=== PATIENT | male | born 1945 | race Hispanic/Latino ===

== ENCOUNTER 2017-12-04 10:42 | Inpatient (IN) | payer MEDICARE ==
[2017-12-04] MEDS ORDERED: NACL 0.9% 500 ML 500 ML IV ONE (11:15)
--- NOTE | 2017-12-04 11:39 | Emergency Department Report ---
- General Chief complaint: Weakness Stated complaint: CT Time Seen by Provider: 12/04/17 11:21 Source: patient, family Mode of arrival: Wheelchair Limitations: No Limitations - History of Present Illness Initial comments: 72-year-old male with a past medical history of atrial fibrillation on Eliquis, kidney stones, sleep apnea, morbid obesity, diabetes, and hypertension presents to the hospital with complaint of generalized weakness, fatigue, shortness of breath, and low blood pressure. Patient has been on Eliquis for the past 3-4 months for atrial fibrillation and has been experiencing hematuria. Hematuria worsened and therefore he saw Dr. Rodriguez on the . Patient was diagnosed with UTI and had a CT that showed air around the kidneys and was placed on Levaquin. By the evening patient began to have aching moderate right lower and right mid abdominal pain. Positive nausea with eating without vomiting reported. Positive chills. Patient denies dysuria and states that hematuria has greatly improved. Patient went to his urologist office today sent to the ER for evaluation. Patient hypotensive and tachycardic on arrival. - Related Data Home Medications Medication Instructions Recorded Confirmed Last Taken ALBUTEROL Inhaler [Proair] 2 puff IH QID PRN 12/04/17 12/04/17 Unknown Allopurinol [Zyloprim] 300 mg PO QDAY 12/04/17 12/04/17 12/03/17 Apixaban [Eliquis] 5 mg PO BID 12/04/17 12/04/17 12/03/17 Ascorbic Acid [Vitamin C] 500 mg PO BID 12/04/17 12/04/17 12/03/17 Aspirin [Lo-Dose Aspirin EC] 81 mg PO DAILY 12/04/17 12/04/17 12/03/17 Calcium Carbonate/Vitamin D3 2 each PO DAILY 12/04/17 12/04/17 12/03/17 [Calcium 600-Vit D3 500 Softgel] Cyanocobalamin [Vitamin B-12] 1,000 mcg PO DAILY 12/04/17 12/04/17 12/03/17 Dulaglutide [Trulicity] 1.5 mg SQ QWEEK 12/04/17 12/04/17 12/03/17 Ergocalciferol (Vitamin D2) 2,000 unit PO BID 12/04/17 12/04/17 Unknown [Vitamin D2] Ezetimibe/Simvastatin (Nf) 1 tab PO QHS 12/04/17 12/04/17 12/03/17 [Vytorin 10-40 mg (Nf)] Furosemide [Lasix TAB] 40 mg PO BID 12/04/17 12/04/17 12/03/17 Glimepiride [Amaryl] 4 mg PO QAM 12/04/17 12/04/17 12/03/17 Glucosamine/D3/Boswellia Shari 1 each PO DAILY 12/04/17 12/04/17 12/03/17 [Osteo Bi-Flex Tablet] Insulin Regular, Human [HumuLIN R] 0 unit SQ ACHS 12/04/17 12/04/17 12/03/17 Linaclotide [Linzess] 145 mcg PO QDAY 12/04/17 12/04/17 12/03/17 Lisinopril [Zestril TAB] 40 mg PO QDAY 12/04/17 12/04/17 12/03/17 Multivit-Min/FA/Lycopen/Lutein 1 each PO DAILY 12/04/17 12/04/17 12/03/17 [Adults 50+ Multivitamin Tablet] Naproxen Sodium [Aleve] 220 mg PO BID 12/04/17 12/04/17 12/03/17 [place]-3/Dha/Epa/Fish Oil [Fish Oil 1 each PO DAILY 12/04/17 12/04/17 12/03/17 1,200 mg Softgel] Potassium Chloride [Klor-Con M20] 20 meq PO DAILY 12/04/17 12/04/17 12/03/17 Zinc Acetate [Galzin] 50 mg PO 4XW 12/04/17 12/04/17 12/03/17 Allergies Allergy/AdvReac Type Severity Reaction Status Date / Time No Known Allergies Allergy Verified 12/04/17 11:29 ED Review of Systems ROS: Stated complaint: CT Other details as noted in HPI Comment: All other systems reviewed and negative Other: Constitutional: + chills Eyes: No eye pain visual changes or discharge ENT: No ear pain or throat pain Neck: Denies pain Respiratory: Denies cough Cardiovascular: Denies chest pain, palpitation. + lightheaded GI: Denies abdominal pain, nausea, vomiting, diarrhea, constipation, melena hematochezia : As per HPI Musculoskeletal: Denies back pain, chronic leg edema Skin: Denies rash, lesions, erythema Neurologic: Denies headache, numbness. Generalized weakness Psychiatric: Denies suicidal ideation, hallucinations Hematological/lymphatic: Denies easy bruising, lymphadenopathy ED Past Medical Hx - Past Medical History Hx Hypertension: Yes Hx Diabetes: Yes Additional medical history: A fib on Eliquis. Reports negative cardiac cath about 2015 - Surgical History Past Surgical History?: Yes Additional Surgical History: Tonsillectomy - Social History Smoking Status: Former Smoker - Medications Home Medications: Home Medications Medication Instructions Recorded Confirmed Last Taken Type ALBUTEROL Inhaler [Proair] 2 puff IH QID PRN 12/04/17 12/04/17 Unknown History Allopurinol [Zyloprim] 300 mg PO QDAY 12/04/17 12/04/17 12/03/17 History Apixaban [Eliquis] 5 mg PO BID 12/04/17 12/04/17 12/03/17 History Ascorbic Acid [Vitamin C] 500 mg PO BID 12/04/17 12/04/17 12/03/17 History Aspirin [Lo-Dose Aspirin EC] 81 mg PO DAILY 12/04/17 12/04/17 12/03/17 History Calcium Carbonate/Vitamin D3 2 each PO DAILY 12/04/17 12/04/17 12/03/17 History [Calcium 600-Vit D3 500 Softgel] Cyanocobalamin [Vitamin B-12] 1,000 mcg PO DAILY 12/04/17 12/04/17 12/03/17 History Dulaglutide [Trulicity] 1.5 mg SQ QWEEK 12/04/17 12/04/17 12/03/17 History Ergocalciferol (Vitamin D2) 2,000 unit PO BID 12/04/17 12/04/17 Unknown History [Vitamin D2] Ezetimibe/Simvastatin (Nf) 1 tab PO QHS 12/04/17 12/04/17 12/03/17 History [Vytorin 10-40 mg (Nf)] Furosemide [Lasix TAB] 40 mg PO BID 12/04/17 12/04/17 12/03/17 History Glimepiride [Amaryl] 4 mg PO QAM 12/04/17 12/04/17 12/03/17 History Glucosamine/D3/Boswellia Shari 1 each PO DAILY 12/04/17 12/04/17 12/03/17 History [Osteo Bi-Flex Tablet] Insulin Regular, Human [HumuLIN R] 0 unit SQ ACHS 12/04/17 12/04/17 12/03/17 History Linaclotide [Linzess] 145 mcg PO QDAY 12/04/17 12/04/17 12/03/17 History Lisinopril [Zestril TAB] 40 mg PO QDAY 12/04/17 12/04/17 12/03/17 History Multivit-Min/FA/Lycopen/Lutein 1 each PO DAILY 12/04/17 12/04/17 12/03/17 History [Adults 50+ Multivitamin Tablet] Naproxen Sodium [Aleve] 220 mg PO BID 12/04/17 12/04/17 12/03/17 History [place]-3/Dha/Epa/Fish Oil [Fish Oil 1 each PO DAILY 12/04/17 12/04/17 12/03/17 History 1,200 mg Softgel] Potassium Chloride [Klor-Con M20] 20 meq PO DAILY 12/04/17 12/04/17 12/03/17 History Zinc Acetate [Galzin] 50 mg PO 4XW 12/04/17 12/04/17 12/03/17 History ED Physical Exam - General Limitations: No Limitations - Other Other exam information: General: No limitations, patient is alert in no acute distress Head exam: Atraumatic, normocephalic Eyes exam: Normal appearance ENT: Moist mucous membrane, normal oropharynx Neck exam: Normal inspection, full range of motion, no meningismus nontender Respiratory exam: Clear to auscultation Cardiovascular: Tachycardic irregular rhythm Abdomen: Soft, nondistended, and nontender, with normal bowel sounds, no rebound, or guarding Extremity: Full range of motion, significant bilateral leg edema Back: Normal Inspection, full range of motion, no tenderness Neurologic: Alert, oriented x3, cranial nerves intact, no motor or sensory deficit Psychiatric: normal affect, normal mood Skin: Warm, dry, intact ED Course Vital Signs 12/04/17 12/04/17 12/04/17 11:14 11:42 11:45 Temperature 99.0 F Pulse Rate 136 H 122 H 112 H Respiratory 20 18 26 H Rate Blood Pressure 79/50 [Right] O2 Sat by Pulse 94 Oximetry 12/04/17 12/04/17 12/04/17 13:58 14:30 15:30 Temperature Pulse Rate 102 H 102 H 117 H Respiratory 16 16 16 Rate Blood Pressure 69/46 85/36 108/54 [Right] O2 Sat by Pulse 97 97 97 Oximetry - Reevaluation(s) Reevaluation #1: 12/04/17 14:01 sbp remains in 80's after 1.5 L NS Reevaluation #2: 12/04/17 15:36 Systolic blood pressure above 100 prior to transfer upstairs for surgery - Consultations Consultation #1: 12/04/17 13:38 Dr Phelan called Ed to enquire about his pt. . The results. Patient has a new ureteral stone with obstruction. Dr. Syed reviewed urine cultures were performed as an outpatient. Positive Escherichia coli that is sensitive to everything except for ampicillin and Zosyn. (sensitive to fluoroquinolones, Rocephin, and gentamicin) Consultation #2: 12/04/17 13:40 case d/w Dr Almanzar (IR) will consult Consultation #3: 12/04/17 13:59 Case d/w Dr Kay (critical care/pulm): will consult ED Medical Decision Making - Lab Data Result diagrams: 12/04/17 11:27 12/04/17 11:27 Lab Results 12/04/17 12/04/17 12/04/17 Range/Units 11:27 11:27 11:27 WBC 12.1 H (4.5-11.0) K/mm3 RBC 5.37 H (3.65-5.03) M/mm3 Hgb 16.3 H (11.8-15.2) gm/dl Hct 48.7 H (35.5-45.6) % MCV 91 (84-94) fl MCH 30 (28-32) pg MCHC 33 (32-34) % RDW 15.7 H (13.2-15.2) % Plt Count 136 L (140-440) K/mm3 Lymph % (Auto) 6.5 L (13.4-35.0) % [place] % (Auto) 14.7 H (0.0-7.3) % Eos % (Auto) 0.2 (0.0-4.3) % Baso % (Auto) 0.3 (0.0-1.8) % Lymph # 0.8 L (1.2-5.4) K/mm3 [place] # 1.8 H (0.0-0.8) K/mm3 Eos # 0.0 (0.0-0.4) K/mm3 Baso # 0.0 (0.0-0.1) K/mm3 Seg Neutrophils % 78.3 H (40.0-70.0) % Seg Neutrophils # 9.5 H (1.8-7.7) K/mm3 PT 20.5 H (12.2-14.9) Sec. INR 1.65 H (0.87-1.13) APTT 40.2 H (24.2-36.6) Sec. VBG pH (7.320-7.420) Sodium 133 L (137-145) mmol/L Potassium 4.5 (3.6-5.0) mmol/L Chloride 93.9 L (98-107) mmol/L Carbon Dioxide 20 L (22-30) mmol/L Anion Gap 24 mmol/L BUN 79 H (9-20) mg/dL Creatinine 3.8 H (0.8-1.5) mg/dL Estimated GFR 16 ml/min BUN/Creatinine Ratio 21 % Glucose 153 H (75-100) mg/dL Lactic Acid (0.7-2.0) mmol/L Calcium 9.5 (8.4-10.2) mg/dL Total Bilirubin 0.90 (0.1-1.2) mg/dL AST 75 H (5-40) units/L ALT 58 H (7-56) units/L Alkaline Phosphatase 142 H (35-129) units/L C-Reactive Protein (0.00-1.30) mg/dL Total Protein 6.5 (6.3-8.2) g/dL Albumin 2.8 L (3.9-5) g/dL Albumin/Globulin Ratio 0.8 % Urine Color (Yellow) Urine Turbidity (Clear) Urine pH (5.0-7.0) Ur Specific [place] (1.003-1.030) Urine Protein (Negative) mg/dL Urine Glucose (UA) (Negative) mg/dL Urine Ketones (Negative) mg/dL Urine Blood (Negative) Urine Nitrite (Negative) Urine Bilirubin (Negative) Urine Urobilinogen (<2.0) mg/dL Ur Leukocyte Esterase (Negative) Urine WBC (Auto) (0.0-6.0) /HPF Urine RBC (Auto) (0.0-6.0) /HPF U Epithel Cells (Auto) (0-13.0) /HPF Urine Bacteria (Auto) (Negative) /HPF Urine Mucus /HPF 12/04/17 12/04/17 12/04/17 Range/Units 11:27 11:27 11:27 WBC (4.5-11.0) K/mm3 RBC (3.65-5.03) M/mm3 Hgb (11.8-15.2) gm/dl Hct (35.5-45.6) % MCV (84-94) fl MCH (28-32) pg MCHC (32-34) % RDW (13.2-15.2) % Plt Count (140-440) K/mm3 Lymph % (Auto) (13.4-35.0) % [place] % (Auto) (0.0-7.3) % Eos % (Auto) (0.0-4.3) % Baso % (Auto) (0.0-1.8) % Lymph # (1.2-5.4) K/mm3 [place] # (0.0-0.8) K/mm3 Eos # (0.0-0.4) K/mm3 Baso # (0.0-0.1) K/mm3 Seg Neutrophils % (40.0-70.0) % Seg Neutrophils # (1.8-7.7) K/mm3 PT (12.2-14.9) Sec. INR (0.87-1.13) APTT (24.2-36.6) Sec. VBG pH 7.316 L (7.320-7.420) Sodium (137-145) mmol/L Potassium (3.6-5.0) mmol/L Chloride (98-107) mmol/L Carbon Dioxide (22-30) mmol/L Anion Gap mmol/L BUN (9-20) mg/dL Creatinine (0.8-1.5) mg/dL Estimated GFR ml/min BUN/Creatinine Ratio % Glucose (75-100) mg/dL Lactic Acid 2.30 H* (0.7-2.0) mmol/L Calcium (8.4-10.2) mg/dL Total Bilirubin (0.1-1.2) mg/dL AST (5-40) units/L ALT (7-56) units/L Alkaline Phosphatase (35-129) units/L C-Reactive Protein 12.40 H (0.00-1.30) mg/dL Total Protein (6.3-8.2) g/dL Albumin (3.9-5) g/dL Albumin/Globulin Ratio % Urine Color (Yellow) Urine Turbidity (Clear) Urine pH (5.0-7.0) Ur Specific [place] (1.003-1.030) Urine Protein (Negative) mg/dL Urine Glucose (UA) (Negative) mg/dL Urine Ketones (Negative) mg/dL Urine Blood (Negative) Urine Nitrite (Negative) Urine Bilirubin (Negative) Urine Urobilinogen (<2.0) mg/dL Ur Leukocyte Esterase (Negative) Urine WBC (Auto) (0.0-6.0) /HPF Urine RBC (Auto) (0.0-6.0) /HPF U Epithel Cells (Auto) (0-13.0) /HPF Urine Bacteria (Auto) (Negative) /HPF Urine Mucus /HPF 12/04/17 Range/Units 13:49 WBC (4.5-11.0) K/mm3 RBC (3.65-5.03) M/mm3 Hgb (11.8-15.2) gm/dl Hct (35.5-45.6) % MCV (84-94) fl MCH (28-32) pg MCHC (32-34) % RDW (13.2-15.2) % Plt Count (140-440) K/mm3 Lymph % (Auto) (13.4-35.0) % [place] % (Auto) (0.0-7.3) % Eos % (Auto) (0.0-4.3) % Baso % (Auto) (0.0-1.8) % Lymph # (1.2-5.4) K/mm3 [place] # (0.0-0.8) K/mm3 Eos # (0.0-0.4) K/mm3 Baso # (0.0-0.1) K/mm3 Seg Neutrophils % (40.0-70.0) % Seg Neutrophils # (1.8-7.7) K/mm3 PT (12.2-14.9) Sec. INR (0.87-1.13) APTT (24.2-36.6) Sec. VBG pH (7.320-7.420) Sodium (137-145) mmol/L Potassium (3.6-5.0) mmol/L Chloride (98-107) mmol/L Carbon Dioxide (22-30) mmol/L Anion Gap mmol/L BUN (9-20) mg/dL Creatinine (0.8-1.5) mg/dL Estimated GFR ml/min BUN/Creatinine Ratio % Glucose (75-100) mg/dL Lactic Acid (0.7-2.0) mmol/L Calcium (8.4-10.2) mg/dL Total Bilirubin (0.1-1.2) mg/dL AST (5-40) units/L ALT (7-56) units/L Alkaline Phosphatase (35-129) units/L C-Reactive Protein (0.00-1.30) mg/dL Total Protein (6.3-8.2) g/dL Albumin (3.9-5) g/dL Albumin/Globulin Ratio % Urine Color [place] (Yellow) Urine Turbidity Clear (Clear) Urine pH 5.0 (5.0-7.0) Ur Specific [place] 1.010 (1.003-1.030) Urine Protein 30 mg/dl (Negative) mg/dL Urine Glucose (UA) >=500 (Negative) mg/dL Urine Ketones Neg (Negative) mg/dL Urine Blood Lg (Negative) Urine Nitrite Neg (Negative) Urine Bilirubin Neg (Negative) Urine Urobilinogen < 2.0 (<2.0) mg/dL Ur Leukocyte Esterase Tr (Negative) Urine WBC (Auto) 37.0 H (0.0-6.0) /HPF Urine RBC (Auto) > 182.0 (0.0-6.0) /HPF U Epithel Cells (Auto) 1.0 (0-13.0) /HPF Urine Bacteria (Auto) 1+ (Negative) /HPF Urine Mucus Few /HPF - EKG Data -: EKG Interpreted by Me (afib, low voltage) EKG shows normal: axis (52), QRS complexes (105), ST-T waves (no stemi/t inv) Rate: tachycardia (117) - EKG Data When compared to previous EKG there are: previous EKG unavailable - Radiology Data Radiology results: report reviewed Read by radiologist Bilateral nephrolithiasis. 1.4 cm stone in the mid to distal right ureter, Obstructing - Medical Decision Making Sepsis/UTI Positive UTI diagnosed on recent urology evaluation. Cultures pansensitive with exception of Zosyn and ampicillin. Patient initially received Zosyn but after sensitivities were reported by urologist patient was treated with gentamicin and Rocephin After 2.5 L patient remains hypotensive third liter in progress Interventional radiologist at [place] and anesthesia came to bedside to consent patient. Anesthesia on standby to perform Central line in OR as necessary Dr. Kay real estate financial analyst evaluated patient at this Dr. Jain consulted blood urine cultures pending Acute on chronic renal failure Likely secondary to obstructive uropathy Patient about to go to surgery IVF - Differential Diagnosis UTI, sepsis, dehydration Critical Care Time: No Critical care attestation.: If time is entered above; I have spent that time in minutes in the direct care of this critically ill patient, excluding procedure time. ED Disposition Clinical Impression: Sepsis, UTI (urinary tract infection), Obstructive uropathy, Acute on chronic renal failure, Morbid obesity, Chronic atrial fibrillation, Chronic anticoagulation, Diabetes, Elevated lactic acid level, Nephrolithiasis Disposition: -09 OP ADMIT IP TO THIS HOSP Is pt being admited?: Yes Condition: Stable Time of Disposition: 13:58 (Dr Corbin/hosp)
--- NOTE | 2017-12-04 11:50 | XRay Report ---
AP CHEST: HISTORY: Possible sepsis AP view of the chest demonstrates a normal mediastinal and cardiac contour with clear lungs and normal bony and soft tissue structures. IMPRESSION: Unremarkable AP chest.
[2017-12-04 11:56] LABS: Basophils % (Auto) 0.3 % (0.0-1.8); Eosinophils % (Auto) 0.2 % (0.0-4.3); Hematocrit 48.7 % (35.5-45.6); Hemoglobin 16.3 gm/dl (11.8-15.2); Lymphocytes # (Auto) 0.8 K/mm3 (1.2-5.4); Lymphocytes % (Auto) 6.5 % (13.4-35.0); Mean Corpuscular HGB Conc 33 % (32-34); Mean Corpuscular Hemoglobin 30 pg (28-32); Mean Corpuscular Volume 91 fl (84-94); Monocytes # (Auto) 1.8 K/mm3 (0.0-0.8); Monocytes % (Auto) 14.7 % (0.0-7.3); Platelet Count 136 K/mm3 (140-440); Red Blood Count 5.37 M/mm3 (3.65-5.03); Red Cell Distribution Width 15.7 % (13.2-15.2)
[2017-12-04 12:05] LABS: INR 1.65 (0.87-1.13)
[2017-12-04] MEDS ORDERED: NACL 0.9% 1000 ML 1,000 ML IV ONE (12:05)
[2017-12-04 12:06] LABS: Partial Thromboplastin Time 40.2 Sec. (24.2-36.6)
[2017-12-04 12:08] LABS: Calcium 9.5 mg/dL (8.4-10.2)
[2017-12-04] MEDS ORDERED: NACL 0.9% 1000 ML IV ONE (12:26)
[2017-12-04] MEDS ORDERED: ZOSYN/NS 4.5GM/100ML 4.5 GM/100 ML VIAL IV SCH (13:00)
[2017-12-04 13:03] LABS: Albumin 2.8 g/dL (3.9-5)
--- NOTE | 2017-12-04 13:23 | Cat Scan Report ---
CT ABDOMEN PELVIS WITHOUT CONTRAST: HISTORY: Recent UTI, air around kidney on recent CT. COMPARISON: none. TECHNIQUE: Helical CT in 1.25mm intervals without IV contrast. Sagittal and coronal reconstructions. FINDINGS: Lung bases: Normal. Liver: Normal. Biliary system: Normal. Pancreas: Normal. Spleen: Normal. Kidneys/ureters/bladder: Bilateral nephrolithiasis is identified. A 1.4 cm stone is identified in the mid to distal right ureter at the level of the pelvic brim. There is moderate right hydronephrosis. Normal bladder. Adrenal glands: Normal. Aorta: Normal. Intestines: Normal. Appendix: Normal. Ascites: None. Adenopathy: None. Musculoskeletal: Thoracolumbar spondylosis. IMPRESSION: Bilateral nephrolithiasis. 1.4 cm stone in the mid to distal right ureter, obstructing.
[2017-12-04] MEDS ORDERED: LEVAQUIN 750MG/150ML 750 MG/150 ML BAG IV ONE (13:33)
[2017-12-04] MEDS ORDERED: ROCEPHIN/NS 1 GM/50 ML 1 GM/50 ML BAG IV ONE (13:37)
--- NOTE | 2017-12-04 13:54 | History and Physical Report ---
History of Present Illness Chief complaint: I feel sick History of present illness: 72 YO Male with Atrial Fib on therapeutic anticoagulation with Eliquis, Nephrolithiasis, MO, DM, HTN presents to ED for evaluation. Pt states that he has experienced generalized weakness, fatigue, shortness of breath, Nausea, Vomiting, over the past 2 days with worsening symptoms over the past 12 hours. Pt also complains of low blood pressure. Patient was seen and evaluated by his urologist and diagnosed with UTI and placed on Levaquin. Pt acknowledges hematuria as well as worsening symptoms and presented to ED for evaluation. Pt seen and evaluated in ED and found to have sepsis, secondary to obstructive uropathy with hydronephrosis. Urology consulted in ED and patient taken urgently to OR. Pt treated IAW sepsis protocol, and admitted to ICU. Past History Past Medical History: atrial fib, diabetes, hypertension, other (Morbid Obesity) Past Surgical History: No surgical history, Other (reviewed) Social history: . denies: smoking, alcohol abuse, prescription drug abuse, IV drug use Family history: no significant family history (reviewed) Medications and Allergies Allergies Allergy/AdvReac Type Severity Reaction Status Date / Time No Known Allergies Allergy Verified 12/04/17 11:29 Home Medications Medication Instructions Recorded Confirmed Last Taken Type ALBUTEROL Inhaler [Proair] 2 puff IH QID PRN 12/04/17 12/04/17 Unknown History Allopurinol [Zyloprim] 300 mg PO QDAY 12/04/17 12/04/17 12/03/17 History Apixaban [Eliquis] 5 mg PO BID 12/04/17 12/04/17 12/03/17 History Ascorbic Acid [Vitamin C] 500 mg PO BID 12/04/17 12/04/17 12/03/17 History Aspirin [Lo-Dose Aspirin EC] 81 mg PO DAILY 12/04/17 12/04/17 12/03/17 History Calcium Carbonate/Vitamin D3 2 each PO DAILY 12/04/17 12/04/17 12/03/17 History [Calcium 600-Vit D3 500 Softgel] Cyanocobalamin [Vitamin B-12] 1,000 mcg PO DAILY 12/04/17 12/04/17 12/03/17 History Dulaglutide [Trulicity] 1.5 mg SQ QWEEK 12/04/17 12/04/17 12/03/17 History Ergocalciferol (Vitamin D2) 2,000 unit PO BID 12/04/17 12/04/17 Unknown History [Vitamin D2] Ezetimibe/Simvastatin (Nf) 1 tab PO QHS 12/04/17 12/04/17 12/03/17 History [Vytorin 10-40 mg (Nf)] Furosemide [Lasix TAB] 40 mg PO BID 12/04/17 12/04/17 12/03/17 History Glimepiride [Amaryl] 4 mg PO QAM 12/04/17 12/04/17 12/03/17 History Glucosamine/D3/Boswellia Shari 1 each PO DAILY 12/04/17 12/04/17 12/03/17 History [Osteo Bi-Flex Tablet] Insulin Regular, Human [HumuLIN R] 0 unit SQ ACHS 12/04/17 12/04/17 12/03/17 History Linaclotide [Linzess] 145 mcg PO QDAY 12/04/17 12/04/17 12/03/17 History Lisinopril [Zestril TAB] 40 mg PO QDAY 12/04/17 12/04/17 12/03/17 History Multivit-Min/FA/Lycopen/Lutein 1 each PO DAILY 12/04/17 12/04/17 12/03/17 History [Adults 50+ Multivitamin Tablet] Naproxen Sodium [Aleve] 220 mg PO BID 12/04/17 12/04/17 12/03/17 History [place]-3/Dha/Epa/Fish Oil [Fish Oil 1 each PO DAILY 12/04/17 12/04/17 12/03/17 History 1,200 mg Softgel] Potassium Chloride [Klor-Con M20] 20 meq PO DAILY 12/04/17 12/04/17 12/03/17 History Zinc Acetate [Galzin] 50 mg PO 4XW 12/04/17 12/04/17 12/03/17 History Active Meds: Active Medications Piperacillin Sod/Tazobactam Sod (Zosyn/Ns 4.5gm/100ml) 4.5 gm in 100 mls @ 200 mls/hr IV ONCE DAYAN Last Admin: 12/04/17 12:47 Dose: 200 mls/hr Gentamicin Sulfate 160 mg/ (Sodium Chloride) 104 mls @ 200 mls/hr IV ONCE ONE; Protocol Stop: 12/04/17 14:07 Ceftriaxone Sodium (Rocephin/Ns 1 Gm/50 Ml) 1 gm in 50 mls @ 100 mls/hr IV ONCE ONE; Protocol Stop: 12/04/17 14:06 Review of Systems Constitutional: fever, fatigue, weakness Ears, nose, mouth and throat: no ear pain, no ear discharge, no tinnitis, no decreased hearing, no nose pain Cardiovascular: no chest pain, no orthopnea, no palpitations, no rapid/ irregular heart beat, no edema Respiratory: no cough, no cough with sputum, no excessive sputum, no hemoptysis Gastrointestinal: nausea, vomiting Genitourinary Male: hematuria, urinary frequency, urinary hesitancy, kidney stones, no discharge, no genital sores Rectal: no pain, no incontinence, no bleeding Musculoskeletal: no neck stiffness, no neck pain, no shooting arm pain, no arm numbness/tingling, no low back pain, no shooting leg pain Integumentary: no rash, no pruritis, no redness, no sores, no wounds Neurological: no head injury, no transient paralysis, no paralysis, no weakness , no parathesias, no numbness, no tingling, no seizures Psychiatric: no anxiety, no memory loss, no change in sleep habits, no sleep disturbances, no insomnia, no hypersomnia, no change in appetite, no change in libido Endocrine: no cold intolerance, no heat intolerance, no polyphagia, no excessive thirst, no polydipsia, no polyuria, no nocturia, no excessive sweating Hematologic/Lymphatic: no easy bruising, no easy bleeding, no lymphadenopathy, no lymphedema Allergic/Immunologic: no urticaria, no allergic rhinitis, no wheezing, no persistent infections, no anaphylaxis, no angioedema Exam - Constitutional Vitals: Temp Pulse Resp BP Pulse Ox 99.0 F 112 H 26 H 79/50 94 12/04/17 11:14 12/04/17 11:45 12/04/17 11:45 12/04/17 11:14 12/04/17 11:14 General appearance: Present: severe distress - EENT Eyes: Present: PERRL ENT: hearing intact, clear oral mucosa - Neck Neck: Present: supple, normal ROM - Respiratory Respiratory effort: normal Respiratory: bilateral: CTA - Extremities Extremities: pulses symmetrical, No edema Peripheral Pulses: abnormal (capillary refill greater than 3.6 seconds) - Abdominal General gastrointestinal: Present: soft, non-tender, non-distended, normal bowel sounds Male genitourinary: Present: normal - Integumentary Integumentary: Present: clear, dry, clammy, decreased turgor - Musculoskeletal Musculoskeletal: generalized weakness - Psychiatric Psychiatric: appropriate mood/affect, intact judgment & insight - Neurologic Neurologic: CNII-XII intact, moves all extremities Results - Labs CBC & Chem 7: 12/04/17 11:27 12/04/17 11:27 Labs: Abnormal lab results 12/04/17 12/04/17 12/04/17 Range/Units 11:27 11: 11:27 WBC 12.1 H (4.5-11.0) K/mm3 RBC 5.37 H (3.65-5.03) M/mm3 Hgb 16.3 H (11.8-15.2) gm/dl Hct 48.7 H (35.5-45.6) % RDW 15.7 H (13.2-15.2) % Plt Count 136 L (140-440) K/mm3 Lymph % (Auto) 6.5 L (13.4-35.0) % Nye % (Auto) 14.7 H (0.0-7.3) % Lymph # 0.8 L (1.2-5.4) K/mm3 Nye # 1.8 H (0.0-0.8) K/mm3 Seg Neutrophils % 78.3 H (40.0-70.0) % Seg Neutrophils # 9.5 H (1.8-7.7) K/mm3 PT 20.5 H (12.2-14.9) Sec. INR 1.65 H (0.87-1.13) APTT 40.2 H (24.2-36.6) Sec. VBG pH (7.320-7.420) Sodium 133 L (137-145) mmol/L Chloride 93.9 L (98-107) mmol/L Carbon Dioxide 20 L (22-30) mmol/L BUN 79 H (9-20) mg/dL Creatinine 3.8 H (0.8-1.5) mg/dL Glucose 153 H (75-100) mg/dL Lactic Acid (0.7-2.0) mmol/L AST 75 H (5-40) units/L ALT 58 H (7-56) units/L Alkaline Phosphatase 142 H (35-129) units/L Albumin 2.8 L (3.9-5) g/dL 12/04/17 12/04/17 Range/Units 11:27 11:27 WBC (4.5-11.0) K/mm3 RBC (3.65-5.03) M/mm3 Hgb (11.8-15.2) gm/dl Hct (35.5-45.6) % RDW (13.2-15.2) % Plt Count (140-440) K/mm3 Lymph % (Auto) (13.4-35.0) % Nye % (Auto) (0.0-7.3) % Lymph # (1.2-5.4) K/mm3 Nye # (0.0-0.8) K/mm3 Seg Neutrophils % (40.0-70.0) % Seg Neutrophils # (1.8-7.7) K/mm3 PT (12.2-14.9) Sec. INR (0.87-1.13) APTT (24.2-36.6) Sec. VBG pH 7.316 L (7.320-7.420) Sodium (137-145) mmol/L Chloride (98-107) mmol/L Carbon Dioxide (22-30) mmol/L BUN (9-20) mg/dL Creatinine (0.8-1.5) mg/dL Glucose (75-100) mg/dL Lactic Acid 2.30 H* (0.7-2.0) mmol/L AST (5-40) units/L ALT (7-56) units/L Alkaline Phosphatase (35-129) units/L Albumin (3.9-5) g/dL Assessment and Plan - Patient Problems (1) Sepsis Current Visit: Yes Status: Acute Qualifiers: Sepsis type: sepsis due to unspecified organism Qualified Code(s): A41.9 - Sepsis, unspecified organism Plan to address problem: IV antibiotics, IVF resuscitation, monitor uop q shift, serial lactic acid, urinalysis, blood cultures, repeat CBC and BMP The high probability of a clinically significant, sudden or life threatening deterioration of the [cardiac, renal, neuro] system(s) required my full and direct attention, intervention and personal management. The aggregate critical care time was [65] minutes. This time is in addition to time spent performing reported procedures but includes the following: [x] Data Review and interpretation [x] Patient assessment and monitoring of vital signs [x] Documentation [x] Medication orders and management (2) Metabolic acidosis Current Visit: Yes Status: Acute Plan to address problem: IVF resuscitation, serial bmp, repeat lactic acid level (3) Atrial fibrillation Current Visit: Yes Status: Acute Qualifiers: Atrial fibrillation type: chronic Qualified Code(s): I48.2 - Chronic atrial fibrillation Plan to address problem: resume anticoagulation as soon as possible postoperatively. (4) Acute on chronic renal failure Current Visit: Yes Status: Acute Qualifiers: Acute renal failure type: with acute tubular necrosis Plan to address problem: IVF resuscitation, treat obstructive uropathy, repeat bmp to assess serial serum creatnine, monitor uop q shift, (5) Obstructive uropathy Current Visit: Yes Status: Acute Plan to address problem: Urology consulted, Pt taken urgently to OR for intervention (6) DVT prophylaxis Current Visit: Yes Status: Acute Plan to address problem: SCD to BLE while in bed.
[2017-12-04] MEDS ORDERED: SODIUM CHLORIDE FLUSH SYRINGE 10 ML IV PRN (13:56)
--- NOTE | 2017-12-04 13:56 | Consultation ---
History of Present Illness Consult date: 12/04/17 Requesting physician: NORAH RUIZ Reason for consult: other (Severe Sepsis) History of present illness: PULMONARY/CCM CONSULT NOTE (Full dictation # [id number]) Please see dictated notes for full details Medications and Allergies Allergies Allergy/AdvReac Type Severity Reaction Status Date / Time No Known Allergies Allergy Verified 12/04/17 11:29 Home Medications Medication Instructions Recorded Confirmed Last Taken Type ALBUTEROL Inhaler [Proair] 2 puff IH QID PRN 12/04/17 12/04/17 Unknown History Allopurinol [Zyloprim] 300 mg PO QDAY 12/04/17 12/04/17 12/03/17 History Apixaban [Eliquis] 5 mg PO BID 12/04/17 12/04/17 12/03/17 History Ascorbic Acid [Vitamin C] 500 mg PO BID 12/04/17 12/04/17 12/03/17 History Aspirin [Lo-Dose Aspirin EC] 81 mg PO DAILY 12/04/17 12/04/17 12/03/17 History Calcium Carbonate/Vitamin D3 2 each PO DAILY 12/04/17 12/04/17 12/03/17 History [Calcium 600-Vit D3 500 Softgel] Cyanocobalamin [Vitamin B-12] 1,000 mcg PO DAILY 12/04/17 12/04/17 12/03/17 History Dulaglutide [Trulicity] 1.5 mg SQ QWEEK 12/04/17 12/04/17 12/03/17 History Ergocalciferol (Vitamin D2) 2,000 unit PO BID 12/04/17 12/04/17 Unknown History [Vitamin D2] Ezetimibe/Simvastatin (Nf) 1 tab PO QHS 12/04/17 12/04/17 12/03/17 History [Vytorin 10-40 mg (Nf)] Furosemide [Lasix TAB] 40 mg PO BID 12/04/17 12/04/17 12/03/17 History Glimepiride [Amaryl] 4 mg PO QAM 12/04/17 12/04/17 12/03/17 History Glucosamine/D3/Boswellia Shari 1 each PO DAILY 12/04/17 12/04/17 12/03/17 History [Osteo Bi-Flex Tablet] Insulin Regular, Human [HumuLIN R] 0 unit SQ ACHS 12/04/17 12/04/17 12/03/17 History Linaclotide [Linzess] 145 mcg PO QDAY 12/04/17 12/04/17 12/03/17 History Lisinopril [Zestril TAB] 40 mg PO QDAY 12/04/17 12/04/17 12/03/17 History Multivit-Min/FA/Lycopen/Lutein 1 each PO DAILY 12/04/17 12/04/17 12/03/17 History [Adults 50+ Multivitamin Tablet] Naproxen Sodium [Aleve] 220 mg PO BID 12/04/17 12/04/17 12/03/17 History [place]-3/Dha/Epa/Fish Oil [Fish Oil 1 each PO DAILY 12/04/17 12/04/17 12/03/17 History 1,200 mg Softgel] Potassium Chloride [Klor-Con M20] 20 meq PO DAILY 12/04/17 12/04/17 12/03/17 History Zinc Acetate [Galzin] 50 mg PO 4XW 12/04/17 12/04/17 12/03/17 History Active Meds: Active Medications Piperacillin Sod/Tazobactam Sod (Zosyn/Ns 4.5gm/100ml) 4.5 gm in 100 mls @ 200 mls/hr IV ONCE DAYAN Last Admin: 12/04/17 12:47 Dose: 200 mls/hr Gentamicin Sulfate 160 mg/ (Sodium Chloride) 104 mls @ 200 mls/hr IV ONCE ONE; Protocol Stop: 12/04/17 14:07 Ceftriaxone Sodium (Rocephin/Ns 1 Gm/50 Ml) 1 gm in 50 mls @ 100 mls/hr IV ONCE ONE; Protocol Stop: 12/04/17 14:06 Physical Examination Vital signs: Vital Signs Temp Pulse Resp BP Pulse Ox 99.0 F 136 H 20 79/50 94 12/04/17 11:14 12/04/17 11:14 12/04/17 11:14 12/04/17 11:14 12/04/17 11:14 Results - Laboratory Findings CBC and BMP: 12/04/17 11:27 12/04/17 11:27 PT/INR, D-dimer PT 20.5 Sec. (12.2-14.9) H 12/04/17 11:27 INR 1.65 (0.87-1.13) H 12/04/17 11:27 Abnormal lab findings: Abnormal Labs 12/04/17 12/04/17 12/04/17 11:27 11:27 11:27 WBC 12.1 H RBC 5.37 H Hgb 16.3 H Hct 48.7 H RDW 15.7 H Plt Count 136 L Lymph % (Auto) 6.5 L Hardy % (Auto) 14.7 H Lymph # 0.8 L Hardy # 1.8 H Seg Neutrophils % 78.3 H Seg Neutrophils # 9.5 H PT 20.5 H INR 1.65 H APTT 40.2 H VBG pH Sodium 133 L Chloride 93.9 L Carbon Dioxide 20 L BUN 79 H Creatinine 3.8 H Glucose 153 H Lactic Acid AST 75 H ALT 58 H Alkaline Phosphatase 142 H Albumin 2.8 L 12/04/17 12/04/17 11:27 11:27 WBC RBC Hgb Hct RDW Plt Count Lymph % (Auto) Hardy % (Auto) Lymph # Hardy # Seg Neutrophils % Seg Neutrophils # PT INR APTT VBG pH 7.316 L Sodium Chloride Carbon Dioxide BUN Creatinine Glucose Lactic Acid 2.30 H* AST ALT Alkaline Phosphatase Albumin
[2017-12-04] MEDS ORDERED: PROAIR IH PRN (14:00)
[2017-12-04] MEDS ORDERED: ZINC ACETATE 50 MG PO SCH (14:00)
[2017-12-04] MEDS ORDERED: D50W (25GM) Syringe IV PRN (14:03)
[2017-12-04] MEDS ORDERED: REGLAN IV ONE (14:05)
[2017-12-04 14:07] LABS: Bacteria,Urine 1+ /HPF (Negative); Bilirubin,Urine NEG (Negative); Blood,Urine LG (Negative); Color,Urine Amber (Yellow); Mucus,Urine FEW /HPF; Urobilinogen,Urine < 2.0 mg/dL (<2.0)
[2017-12-04 14:09] LABS: RBC,Urine > 182.0 /HPF (0.0-6.0)
--- NOTE | 2017-12-04 14:23 | Event Note ---
Date: 12/04/17 Was asked to see patient asked to see patient in the event that cystoscopy is unsuccessful in passing a stent on the right side. Had a lengthy discussion with the patient regarding the very high risks associated with percutaneous nephrostomy tube placement as the patient is morbidly obese, septic and on the Eliquis for Afib. The patient understands and written consent was obtained.
[2017-12-04] MEDS ORDERED: NACL 0.9% 1000 ML 1,000 ML ONE ×2 (14:30→17:32)
--- NOTE | 2017-12-04 14:51 | Anesthesia Day of Surgery ---
Anesthesia Day of Surgery - Day of Surgery Patient Examined: Yes Patient H&P Reviewed: Yes Patient is NPO: No (pt had coffee w/ cream at 05:30. 3)
--- NOTE | 2017-12-04 14:56 | Anesthesia Consultation ---
Anesthesia Consult and Med Hx - Airway Anesthetic Teeth Evaluation: Good ROM Head & Neck: Adequate Mental/Hyoid Distance: Adequate Mallampati Class: Class III Intubation Access Assessment: Possibly Difficult - Pulmonary Exam CTA: Yes - Cardiac Exam Cardiac Exam: RRR - Pre-Operative Health Status ASA Pre-Surgery Classification: ASA3 Proposed Anesthetic Plan: General, MAC - Pulmonary SOB: Yes Hx Sleep Apnea: Yes - Cardiovascular System Hx Hypertension: Yes Hx Cardia Arrhythmia: Yes (Pt is on Eliquis for Afib. Currently in Afib confirmed by ECG.) Hx Pacemaker: No Hx Internal Defibrillator: No - Endocrine Hx Renal Disease: Yes (ARF, Large Calculi, BUN/Creat elevated. no hx of dialysis.) Hx Non-Insulin Dependent Diabetes: Yes Hx Thyroid Disease: No - Hematic Hx Anemia: No - Other Systems Hx Cancer: No Hx Obesity: Yes (BMI 48.1) - Additional Comments Anesthesia Medical History Comments: Pt currently on Eliquis for Afib. Large Neck Circumference. PAULINO/CPAPA. Has good peripheral IV access. Currently getting IV hydration for hypotension and sepsis. Not on any pressors at the time. Plan to take to OR for cystoscopy with MAC, and GA as backup.
[2017-12-04] MEDS ORDERED: GARAMYCIN 160 MG in NACL 0.9% 100 ML IV ONE (15:00)
[2017-12-04] MEDS ORDERED: cefTRIAXone 1 GM in NACL 0.9% 20 ML IV ONE (15:00)
[2017-12-04] MEDS ORDERED: DILAUDID IV PRN (15:03)
[2017-12-04] MEDS ORDERED: DIPRIVAN 10 MG/ML IV ONE (15:46)
[2017-12-04] MEDS ORDERED: VERSED IV NR (16:00)
[2017-12-04] MEDS ORDERED: WATER FOR IRRIG STERILE IR ONE (16:00)
[2017-12-04] MEDS ORDERED: NACL 0.9% 1000 ML 1,000 ML IV SCH (16:00)
[2017-12-04] MEDS ORDERED: REGLAN IV NR (16:00)
[2017-12-04] MEDS ORDERED: SUBLIMAZE ONE (16:13)
[2017-12-04] MEDS ORDERED: NACL 0.9% 100 ML ONE (16:38)
[2017-12-04] MEDS ORDERED: ADRENALIN ONE (16:38)
[2017-12-04] MEDS ORDERED: NEO SYNEPHRINE ONE (16:38)
--- NOTE | 2017-12-04 16:46 | Post Operative Note ---
Date of procedure: 12/04/17 Pre-op diagnosis: sepsis r ureteral stone Post-op diagnosis: same Findings: stone stricture Procedure: cysto dviu stent Anesthesia: GETA Surgeon: MISA ALMODOVAR Estimated blood loss: minimal Pathology: list (c and s) Specimen disposition: to lab Condition: stable Disposition: PACU
[2017-12-04] MEDS: NACL 0.9% 1000 ML 1,000 ML IV SCH (17:05)
--- NOTE | 2017-12-04 17:07 | Operative Report ---
PREOPERATIVE DIAGNOSES: Urosepsis, obstructing right ureteral stone with sepsis, hypotension. POSTOPERATIVE DIAGNOSES: Urosepsis, obstructing right ureteral stone with sepsis, hypotension, and urethral stricture. PROCEDURE: Cystoscopy, direct vision internal urethrotomy, right ureteral stent. SURGEON: Luciano Phelan M.D. ANESTHESIA: General. FINDINGS: This is a gentleman who presented with sepsis. He had hydronephrosis compared to the CT 6 days ago and an obstructing stone. He was hypotensive. He was hydrated and given broad-spectrum antibiotics. He has renal failure and we consulted Interventional Radiology who felt very risky to do a percutaneous nephrostomy at this time, so we will try a stent. DESCRIPTION OF PROCEDURE: The patient was brought to the operating room and placed on the operating table. Following the induction of anesthesia, he was as mentioned hypotensive. We saw a stricture in the mid penile urethra and at the bulbomembranous junction. A wire coiled in the bladder and internal urethrotomy was done. Once we got into the bladder, the bladder neck was high riding. We found the orifice, which was quite a distance away from the urethral meatus. We were able to place a wire into the kidney and place a 6-Danish double J. The patient tolerated the procedure well. He is in guarded condition. He has got a much better blood pressure. Lots of pus came out of the kidney, which was sent for culture and a Sagastume catheter was placed with the [place] catheter over a wire. He was brought to recovery in stable condition. JOB# [id number] ROSEANNA/MILLIE
[2017-12-04] MEDS ORDERED: NEO-SYNEPHRINE 100 MG in NACL 0.9% 90 ML IV SCH (17:15)
[2017-12-04] MEDS ORDERED: XYLOCAINE MPF 2% ONE (17:16)
--- NOTE | 2017-12-04 17:28 | Post Anesthesia Evaluation ---
- Post Anesthesia Evaluation Patient Participated: Yes Airway Patent: Yes Stable Respiratory Function: Yes Nausea/Vomiting: No Temp > 96.8F: Yes Pain Manageable: Yes (Pt states he feels much better post op, No Pain) Adequeate Hydration: No (Pt requiring pressors to maintain MAP 60.) Anesthesia Complications: Yes (required epinephrine to maintain BP, stable in PACU)
[2017-12-04 17:36] LABS: Hematocrit 43.3 % (35.5-45.6); Hemoglobin 14.2 gm/dl (11.8-15.2); Mean Corpuscular HGB Conc 33 % (32-34); Mean Corpuscular Hemoglobin 30 pg (28-32); Mean Corpuscular Volume 93 fl (84-94); Platelet Count 121 K/mm3 (140-440); Red Blood Count 4.67 M/mm3 (3.65-5.03); Red Cell Distribution Width 15.9 % (13.2-15.2)
[2017-12-04 17:47] LABS: Calcium 8.1 mg/dL (8.4-10.2)
[2017-12-04 17:48] LABS: INR 1.59 (0.87-1.13); Partial Thromboplastin Time 43.9 Sec. (24.2-36.6)
[2017-12-04] MEDS: PROVENTIL IH PRN (17:50)
--- NOTE | 2017-12-04 18:41 | XRay Report ---
FINAL REPORT EXAM: XR CHEST 1V AP HISTORY: SOB TECHNIQUE: AP portable view of the chest PRIORS: None. FINDINGS: Lines, tubes, and devices: N/A Lungs and pleura: Trachea is normal in position. Lungs are clear of infiltrate, pleural effusion, vascular congestion, or pneumothorax. Cardiomediastinal silhouette: Cardiac and mediastinal silhouettes are unremarkable. Other: Bony structures are intact. IMPRESSION: No acute cardiopulmonary process seen.
[2017-12-04 19:57] LABS: Band Neutrophils # (Manual) 0.5 K/mm3; Basophils % (Manual) 0 % (0.0-1.8); Eosinophils % (Manual) 0 % (0.0-4.3); Myelocytes # (Manual) 0.2 K/mm3; Total Cells Counted 100
[2017-12-04 19:58] LABS: RBC Morphology Normal
--- NOTE | 2017-12-04 21:13 | Consultation ---
CONSULTING PHYSICIAN: Dr. Destiny Ellison, Emergency Room doctor. REASON FOR CONSULTATION: Severe sepsis, right obstructing ureteral stone, SAUL. CHIEF COMPLAINT AND HISTORY OF PRESENT ILLNESS: The patient is a 72-year-old male with past medical history amongst other things significant for a diagnoses of atrial fibrillation, on Eliquis, but also nephrolithiasis and morbidly obese. He actually tells me he has obstructive sleep apnea. He is on home CPAP therapy. He came into the Emergency Room, actually directed there from his urologist's office. He stated that he had seen the urologist a few days back and was treated with antibiotics for essentially dysuria. The pain got much better. However, he said that when he went for a followup visit, he was told to come into the Emergency Room. This really is secondary to a repeat CT scan which showed an obstructive stone with obstructive uropathy. In the Emergency Room, he was found to be hypotensive and hence the consult. He has tentatively been scheduled to be taken into the OR I believe for a cystoscopy plus or minus other intervention by the urologist. When I stopped by to see him, he was resting in bed. He was lying flat, denied any orthopnea. He denied any dizziness and really did not show any significant confusion during the discussion. Nevertheless, his mean arterial pressures ran around 50 mmHg at that time. He denied nausea, vomiting, or overt aspiration. Denied any real fevers or chills. Denied any new onset leg pain or swelling either unilaterally or bilaterally. He has been compliant with his medications including his CPAP therapy at bedtime. He has about a 10+ pack-year tobacco smoking history, but denies any current tobacco use. It really is as much of the history of presentation as I have. PAST MEDICAL HISTORY: Again, significant for diabetes, atrial fibrillation, morbid obesity, obstructive sleep apnea, hypertension and nephrolithiasis. PAST SURGICAL HISTORY: Unknown. MEDICATIONS: He was on at the time I stopped by to see him, according to the medication administration record included the following: He was on p.r.n. albuterol, vitamin C 500 mg p.o. b.i.d., Rocephin he received 1 gram dose, vitamin B12 1000 mcg p.o. daily, Lasix 40 mg p.o. b.i.d., gentamicin he received 160 mg IV once, he is on insulin via sliding scale, lisinopril 40 mg p.o. daily, all the nonformulary medications. He received Zosyn 4.5 grams IV x 1. ALLERGIES: No known drug allergies. DIET: Morbidly obese. Denies significant weight loss or gain in the preceding few weeks to months. FAMILY AND SOCIAL HISTORY: Lives in the community. A 10+ pack-year tobacco smoking history. No active smoking. Denies alcohol or illicit drug use or abuse. Family history, otherwise noncontributory. REVIEW OF SYSTEMS: A complete 13-system review of system was obtained. He denied any loss of consciousness. No new onset seizures. No new onset focal weakness. No gross hematochezia or melena. No gross hematuria. He actually denies dysuria. No hematemesis. No hemoptysis. He denies palpitations. He denies polyuria or polydipsia. A complete 13-system review of systems was obtained. Pertinent positives and/or negatives as in body of history above, otherwise they are noncontributory. PHYSICAL EXAMINATION: VITAL SIGNS: At presentation over here, he had a low grade fever, temperature 99.0 degrees Fahrenheit with a pulse of 136, respiratory rate of 18, blood pressure 79/50, oxygen sats 94%, inspired oxygen concentration was not recorded. He was on 3 liters nasal cannula when I saw him. GENERAL: He is a morbidly obese elderly. Actually, looks a little younger than his stated age, normocephalic, atraumatic, in mild distress, respiratory and nonrespiratory. HEAD, EYES, EARS, NOSE AND THROAT: He is anicteric. No conjunctival erythema. He has a large neck circumference. His oropharynx is a Mallampati #3 oropharynx. No gross jugular venous distention. Grossly, no palpable lymph nodes in the supraclavicular or submandibular lymph node chains. No thyromegaly. LUNGS: Auscultation of both lung kirby significant only for diminished bilateral breath sounds. No active wheezing at the time of my evaluation. ABDOMEN: Full, soft. Bowel sounds are positive, not tender. No palpable hepatosplenomegaly grossly. GENITOURINARY: Mild suprapubic tenderness. No overt swelling or cellulitis. EXTREMITIES: Without overt digital clubbing or cyanosis. Trace pedal edema. Dorsalis pedis pulses are palpable bilaterally. NEUROLOGIC: Pupils equal, round, about 4 mm, reactive to light. Extraocular muscle movements are intact. He moves all 4 extremities spontaneously. SKIN: The skin is of poor turgor with chronic venous stasis type changes to the lower extremities. No cellulitis. LABORATORY AND IMAGING DATA: From my review are as follows: White cell count 12,100, hemoglobin 16.3, hematocrit 48.7, platelet count 136. INR was 1.65. Venous blood gas showed a pH of 7.32. Serum sodium 133, potassium 4.5, chloride 94, bicarbonate 20, BUN 79, creatinine 3.8. Glucose was 153. Lactic acid level was elevated at 2.3, AST was up at 75, ALT 58, albumin low at 2.8, otherwise no significant LFT derangements. Urinalysis, trace leukocyte esterase, 37 white cells per high power field. He was spilling glucose also in the urine. Blood cultures, no growth to date. Chest x-ray was done. I have reviewed the chest x-ray. I have also reviewed the radiologist's interpretation. I do agree with him taking the soft tissue interference in the imaging and the fact that it is also a lordotic film, I do not see significant cardiomegaly, perhaps mild interstitial edema if at all anything in an area of likely platelike atelectasis in the right lower lobe region. No gross pneumothorax, no gross bony fractures. ASSESSMENT AND PLAN: 1. Severe sepsis with shock. 2. Nephrolithiasis with obstructive uropathy. I should mention that a CT of the abdomen and pelvis done today showed bilateral nephrolithiasis with a 1.4 cm stone in the mid to distal right ureter that was obstructing. 3. Morbid obesity. 4. Obstructive sleep apnea. 5. Leukocytosis. 6. Acute kidney injury on chronic according to his urologist, the creatinine was lower prior to this admission. 7. Diagnosis of mild hyponatremia. 8. He has a mild metabolic acidosis. 9. He has also lactic acidosis. 10. He has elevated serum transaminases. PLAN: Initiate sepsis pathway. Volume resuscitation is ongoing with crystalloids at this point. We will trend his lactic acid level post-volume resuscitation. Consideration will be given for vasopressors if mean arterial pressures are still below 60. We will also order a CRP level and trend as necessary during this admission. He is appropriately on broad-spectrum antibiotic therapies. Infectious Disease consultation may be in order. I will schedule bilevel positive air pressure ventilation therapy at bedtime. I will go with an empiric number of 18/8 based on my discussions with him a backup rate of about 10 at bedtime and p.r.n. during the day. Oxygen will be weaned to keep sats greater than or equal to about 90%. He will benefit from an outpatient pulmonary clinic evaluation and PFTs. He will be placed on GI prophylaxis as well as DVT prophylaxis ultimately if we are unable to resume his Eliquis post procedure. Vasopressors if instituted, will be titrated to keep mean arterial pressures greater than or equal to about 65 mmHg. Flu and pneumonia vaccination will be addressed per protocol. Weight loss has been consulted. Continued tobacco abstinence has been encouraged. Glycemic control will be via sliding scale insulin, and/or any other oral hypoglycemic he may be on at home. He apparently is also on some Lasix at home. He may benefit from a 2D echocardiogram if his hemodynamic status deteriorates. Flu and pneumonia vaccination will be addressed per protocol. Thank you very much for the consult, Dr. Ellison. We will follow along and make further recommendations as picture progresses/becomes clearer. He is critically ill, at risk for further decompensation including and will be followed and admitted to the Intensive Care Unit petra or postoperatively. JOB# [id number] LIOR/MILLIE SAUCEDA
[2017-12-04] MEDS: SODIUM CHLORIDE FLUSH SYRINGE 10 ML IV SCH (22:00)
[2017-12-04] MEDS ORDERED: NON-FORMULARY (Ergocalciferol (Vitamin D2) [Vitamin D2] 2,000 UNIT) PO SCH (22:00)
[2017-12-04] MEDS ORDERED: NON-FORMULARY (Ezetimibe/Simvastatin (Nf) 1 TAB) PO SCH (22:00)
[2017-12-04 22:06] LABS: Calcium 8.6 mg/dL (8.4-10.2)
[2017-12-04] MEDS: VITAMIN C PO SCH (23:51)
[2017-12-04] MEDS: PRAVACHOL PO SCH (23:52)
[2017-12-04] MEDS: ZETIA PO SCH (23:52)
[2017-12-05] MEDS: NACL 0.9% 1000 ML 1,000 ML IV SCH ×2 (01:57→17:37)
[2017-12-05] MEDS: LASIX PO SCH ×2 (06:05→17:36)
[2017-12-05] MEDS: HumuLIN R SUB-Q SCH ×5 (06:05→19:54)
--- NOTE | 2017-12-05 07:27 | XRay Report ---
AP ABDOMEN: HISTORY: Stent placement for right ureteral stone. 7 AP fluoroscopic images of the abdomen were obtained which demonstrate right ureteral stent placement by urology. No contrast was injected. Cystoscopy was also performed. Correlate with the procedural report as needed. IMPRESSION: Right ureteral stent placement.
[2017-12-05] MEDS: PROVENTIL IH PRN (08:48)
[2017-12-05] MEDS ORDERED: CALCIUM CARBONATE PO SCH (10:00)
[2017-12-05] MEDS ORDERED: BOSWELLIA SERRA PO SCH (10:00)
[2017-12-05] MEDS ORDERED: LYCOPEN PO SCH (10:00)
[2017-12-05] MEDS ORDERED: D3 PO SCH (10:00)
[2017-12-05] MEDS ORDERED: LUTEIN PO SCH (10:00)
[2017-12-05] MEDS ORDERED: OMEGA PO SCH (10:00)
[2017-12-05] MEDS ORDERED: NON-FORMULARY (Linaclotide [Linzess] 145 MCG) PO SCH (10:00)
[2017-12-05] MEDS ORDERED: GLUCOSAMINE PO SCH (10:00)
[2017-12-05] MEDS ORDERED: VITAMIN D3 PO SCH (10:00)
[2017-12-05] MEDS ORDERED: DHA PO SCH (10:00)
[2017-12-05] MEDS ORDERED: EPA PO SCH (10:00)
[2017-12-05] MEDS ORDERED: [UNRECOGNIZED DRUG - OTHER] PO SCH (10:00)
[2017-12-05] MEDS ORDERED: ZYLOPRIM PO SCH (10:00)
[2017-12-05] MEDS ORDERED: FISH OIL PO SCH (10:00)
[2017-12-05] MEDS ORDERED: MULTIVIT MIN PO SCH (10:00)
--- NOTE | 2017-12-05 10:19 | Progress Note ---
Assessment and Plan Severe sepsis with septic shock Nephrolithiasis with obstructive uropathy Morbid obesity PAULINO Acute on chronic renal failure UTI Lactic acidosis Atrial fibrillation with RVR Thrombocytopenia -Extubated yesterday with adequate gas exchange -Continue with IVF fluids -Vasopressor support for MAP<65, currently off neosynephrine -Give bolus of amiodarone 150mg then initiate cardizem orally -Supplemental oxygen to keep O2 sats 88-92% - Avoid nephrotoxic agents -Continue antibiotics, follow up cultures -Resume Eliquis once it is ok per Surgery service -OOB to chair daily, increase activity -Initiate diet Subjective Date of service: 12/05/17 Principal diagnosis: Sepsis, Hydronephrosis Interval history: F/UP for severe sepsis with septic shock: nephrolithiasis with obstructive uropathy: Morbid obesity with PAULINO Seen and examined. Vitals, labs, medications, chart reviewed. Off neosynephrine infusion Currently has Afib with RVR Patient has a history of chronic atrial fibrillation and is on eliquis for oral anticoagulation. In 2104, he underwent a cardiac cath that reports no significant CAD, normal left ventricular ejection fraction. He states his night was decent, he tolerated his CPAP machine, feels very thirsty Objective Vital Signs - 12hr 12/04/17 12/04/17 12/04/17 22:58 23:00 23:32 Temperature 99.3 F Pulse Rate 107 H 106 H Pulse Rate [ Bilateral] Pulse Rate [ From Monitor] Respiratory 27 H 25 H Rate Respiratory Rate [Bilateral ] Blood Pressure 130/69 125/73 O2 Sat by Pulse 96 97 Oximetry 12/05/17 12/05/17 12/05/17 00:00 01:00 01:45 Temperature Pulse Rate 112 H 101 H 109 H Pulse Rate [ Bilateral] Pulse Rate [ 111 H From Monitor] Respiratory 26 H 28 H 19 Rate Respiratory Rate [Bilateral ] Blood Pressure 123/63 135/64 124/66 O2 Sat by Pulse 100 97 97 Oximetry 12/05/17 12/05/17 12/05/17 02:00 03:00 04:00 Temperature 98.6 F Pulse Rate 103 H 109 H 104 H Pulse Rate [ Bilateral] Pulse Rate [ 107 H From Monitor] Respiratory 19 20 19 Rate Respiratory Rate [Bilateral ] Blood Pressure 113/49 117/57 107/56 O2 Sat by Pulse 96 96 94 Oximetry 12/05/17 12/05/1718 05:00 05:49 06:00 Temperature 94 F L Pulse Rate 111 H 108 H Pulse Rate [ Bilateral] Pulse Rate [ From Monitor] Respiratory 22 21 Rate Respiratory Rate [Bilateral ] Blood Pressure 113/58 127/60 O2 Sat by Pulse 95 96 Oximetry 12/05/17 12/05/17 12/05/17 07:00 07:30 08:00 Temperature 98.3 F Pulse Rate 121 H 123 H Pulse Rate [ Bilateral] Pulse Rate [ 125 H From Monitor] Respiratory 28 H 22 26 H Rate Respiratory Rate [Bilateral ] Blood Pressure 139/59 135/63 O2 Sat by Pulse 91 95 Oximetry 12/05/17 12/05/17 12/05/17 08:51 09:00 09:13 Temperature Pulse Rate 128 H Pulse Rate [ 127 H 129 H Bilateral] Pulse Rate [ From Monitor] Respiratory 26 H Rate Respiratory 20 27 H Rate [Bilateral ] Blood Pressure 145/65 O2 Sat by Pulse 95 Oximetry 12/05/17 12/05/17 09:14 09:15 Temperature Pulse Rate 130 H Pulse Rate [ Bilateral] Pulse Rate [ From Monitor] Respiratory 22 Rate Respiratory Rate [Bilateral ] Blood Pressure 128/67 O2 Sat by Pulse 97 95 Oximetry Constitutional: no acute distress, other (obese) Eyes: non-icteric ENT: oropharynx dry Neck: supple, no lymphadenopathy, no JVD Effort: normal Ascultation: Bilateral: diminished breath sounds Cardiovascular: irregular rhythm, other (S1,S2, no murmurs, gallops or rubs) Gastrointestinal: normoactive bowel sounds, non-tender, non-distended, other ( No hepatoslenomegaly) Integumentary: normal Extremities: no cyanosis, no edema, pulses normal, other (Chronic venous stasis dermatitis) Neurologic: normal mental status, non-focal exam, pupils equal and round, CN II- XII normal, motor strength normal and Psychiatric: mood appropriate, affect normal CBC and BMP: 12/04/17 16:29 12/04/17 20:49 ABG, PT/INR, D-dimer: PT/INR, D-dimer PT 19.9 Sec. (12.2-14.9) H 12/04/17 16:29 INR 1.59 (0.87-1.13) H 12/04/17 16:29 Abnormal lab findings: Abnormal Labs 12/04/17 12/04/17 12/04/17 11:27 11:27 11:27 WBC 12.1 H RBC 5.37 H Hgb 16.3 H Hct 48.7 H RDW 15.7 H Plt Count 136 L Lymph % (Auto) 6.5 L [place] % (Auto) 14.7 H Lymph # 0.8 L [place] # 1.8 H Seg Neutrophils % 78.3 H Lymphocytes % (Manual) Monocytes % (Manual) Seg Neutrophils # 9.5 H Seg Neutrophils # Man Lymphocytes # (Manual) Monocytes # (Manual) PT 20.5 H INR 1.65 H APTT 40.2 H VBG pH Sodium 133 L Chloride 93.9 L Carbon Dioxide 20 L BUN 79 H Creatinine 3.8 H Glucose 153 H Lactic Acid Calcium AST 75 H ALT 58 H Alkaline Phosphatase 142 H C-Reactive Protein Albumin 2.8 L Urine WBC (Auto) 12/04/17 12/04/17 12/04/17 11:27 11:27 11:27 WBC RBC Hgb Hct RDW Plt Count Lymph % (Auto) [place] % (Auto) Lymph # [place] # Seg Neutrophils % Lymphocytes % (Manual) Monocytes % (Manual) Seg Neutrophils # Seg Neutrophils # Man Lymphocytes # (Manual) Monocytes # (Manual) PT INR APTT VBG pH 7.316 L Sodium Chloride Carbon Dioxide BUN Creatinine Glucose Lactic Acid 2.30 H* Calcium AST ALT Alkaline Phosphatase C-Reactive Protein 12.40 H Albumin Urine WBC (Auto) 12/04/17 12/04/17 12/04/17 13:49 16:29 16:29 WBC 11.7 H RBC Hgb Hct RDW 15.9 H Plt Count 121 L Lymph % (Auto) [place] % (Auto) Lymph # [place] # Seg Neutrophils % Lymphocytes % (Manual) 5.0 L Monocytes % (Manual) 19.0 H Seg Neutrophils # Seg Neutrophils # Man 8.2 H Lymphocytes # (Manual) 0.6 L Monocytes # (Manual) 2.2 H PT INR APTT VBG pH Sodium Chloride Carbon Dioxide BUN Creatinine Glucose Lactic Acid 2.20 H* Calcium AST ALT Alkaline Phosphatase C-Reactive Protein Albumin Urine WBC (Auto) 37.0 H 12/04/17 12/04/17 12/04/17 16:29 17:22 20:49 WBC RBC Hgb Hct RDW Plt Count Lymph % (Auto) [place] % (Auto) Lymph # [place] # Seg Neutrophils % Lymphocytes % (Manual) Monocytes % (Manual) Seg Neutrophils # Seg Neutrophils # Man Lymphocytes # (Manual) Monocytes # (Manual) PT 19.9 H INR 1.59 H APTT 43.9 H VBG pH Sodium Chloride Carbon Dioxide 18 L BUN 70 H Creatinine 3.3 H Glucose Lactic Acid 2.10 H* Calcium 8.1 L AST ALT Alkaline Phosphatase C-Reactive Protein Albumin Urine WBC (Auto) 12/04/17 20:49 WBC RBC Hgb Hct RDW Plt Count Lymph % (Auto) [place] % (Auto) Lymph # [place] # Seg Neutrophils % Lymphocytes % (Manual) Monocytes % (Manual) Seg Neutrophils # Seg Neutrophils # Man Lymphocytes # (Manual) Monocytes # (Manual) PT INR APTT VBG pH Sodium 135 L Chloride Carbon Dioxide 15 L BUN 70 H Creatinine 3.1 H Glucose 108 H Lactic Acid Calcium AST ALT Alkaline Phosphatase C-Reactive Protein Albumin Urine WBC (Auto) Critical care time in (mins) excluding proc time.: 35 Critical care attestation.: If time is entered above; I have spent that time in minutes in the direct care of this critically ill patient, excluding procedure time.
--- NOTE | 2017-12-05 10:28 | Progress Note ---
Assessment and Plan Assessment and plan: Sepsis. Continue IV antibiotics and IV fluid hydration. Follow-up serial lactic acid levels. Follow-up UA, urine and blood cultures. Paroxysmal Atrial fibrillation with RVR. Cardiology consultation. Patient not on any medications for rate control. Check echocardiogram. Patient previously on eliquis. Acute on chronic renal failure. Etiology is multifactorial secondary to acute kidney injury from sepsis/ATN/vasomotor nephropathy/volume depletion and obstructive uropathy from ureteral stone/stricture. Continue IV fluid hydration and follow BMP closely. Nephrology consultation. Obstructive uropathy/hydronephrosis. Etiology secondary to Right ureteral stone /stricture. Patient is status post cystoscopic stent placement. Diabetes mellitus type 2. Continue Accu-Cheks and sliding scale insulin. Hypertension. Resume antihypertensive medications. History Interval history: No new issues overnight. Hospitalist Physical - Constitutional Vitals: Temp Pulse Resp BP Pulse Ox 98.3 F 130 H 22 128/67 95 12/05/17 08:00 12/05/17 09:15 12/05/17 09:15 12/05/17 09:15 12/05/17 09:15 General appearance: Present: no acute distress - EENT Eyes: Present: PERRL, EOM intact ENT: hearing intact, clear oral mucosa, dentition normal - Neck Neck: Present: supple, normal ROM - Respiratory Respiratory effort: normal Respiratory: bilateral: CTA - Cardiovascular Rhythm: irregularly irregular Heart Sounds: Absent: gallop, rub - Extremities Extremities: no ischemia, No edema, Full ROM - Abdominal General gastrointestinal: soft, non-tender, non-distended, normal bowel sounds - Integumentary Integumentary: Present: clear, warm, dry - Neurologic Neurologic: CNII-XII intact, moves all extremities Results - Labs CBC & Chem 7: 12/04/17 16:29 12/04/17 20:49 Labs: Laboratory Last Values WBC 11.7 K/mm3 (4.5-11.0) H 12/04/17 16:29 RBC 4.67 M/mm3 (3.65-5.03) 12/04/17 16:29 Hgb 14.2 gm/dl (11.8-15.2) 12/04/17 16:29 Hct 43.3 % (35.5-45.6) 12/04/17 16:29 MCV 93 fl (84-94) 12/04/17 16:29 MCH 30 pg (28-32) 12/04/17 16:29 MCHC 33 % (32-34) 12/04/17 16:29 RDW 15.9 % (13.2-15.2) H 12/04/17 16:29 Plt Count 121 K/mm3 (140-440) L 12/04/17 16:29 Lymph % (Auto) 6.5 % (13.4-35.0) L 12/04/17 11:27 [place] % (Auto) Cnc Technician 12/04/17 16:29 Eos % (Auto) 0.2 % (0.0-4.3) 12/04/17 11:27 Baso % (Auto) 0.3 % (0.0-1.8) 12/04/17 11: Lymph # 0.8 K/mm3 (1.2-5.4) L 12/04/17 11:27 [place] # 1.8 K/mm3 (0.0-0.8) H 12/04/17 11:27 Eos # 0.0 K/mm3 (0.0-0.4) 12/04/17 11:27 Baso # 0.0 K/mm3 (0.0-0.1) 12/04/17 11:27 Add Manual Diff Complete 12/04/17 16:29 Total Counted 100 12/04/17 16:29 Seg Neutrophils % 78.3 % (40.0-70.0) H 12/04/17 11:27 Seg Neuts % (Manual) 70.0 % (40.0-70.0) 12/04/17 16:29 Band Neutrophils % 4.0 % 12/04/17 16:29 Lymphocytes % (Manual) 5.0 % (13.4-35.0) L 12/04/17 16:29 Reactive Lymphs % (Man) 0 % 12/04/17 16:29 Monocytes % (Manual) 19.0 % (0.0-7.3) H 12/04/17 16:29 Eosinophils % (Manual) 0 % (0.0-4.3) 12/04/17 16:29 Basophils % (Manual) 0 % (0.0-1.8) 12/04/17 16:29 Metamyelocytes % 0 % 12/04/17 16:29 Myelocytes % 2.0 % 12/04/17 16:29 Promyelocytes % 0 % 12/04/17 16:29 Blast Cells % 0 % 12/04/17 16:29 Nucleated RBC % Not Reportable 12/04/17 16:29 Seg Neutrophils # 9.5 K/mm3 (1.8-7.7) H 12/04/17 11:27 Seg Neutrophils # Man 8.2 K/mm3 (1.8-7.7) H 12/04/17 16:29 Band Neutrophils # 0.5 K/mm3 12/04/17 16:29 Lymphocytes # (Manual) 0.6 K/mm3 (1.2-5.4) L 12/04/17 16:29 Abs React Lymphs (Man) 0.0 K/mm3 12/04/17 16:29 Monocytes # (Manual) 2.2 K/mm3 (0.0-0.8) H 12/04/17 16:29 Eosinophils # (Manual) 0.0 K/mm3 (0.0-0.4) 12/04/17 16:29 Basophils # (Manual) 0.0 K/mm3 (0.0-0.1) 12/04/17 16:29 Metamyelocytes # 0.0 K/mm3 12/04/17 16:29 Myelocytes # 0.2 K/mm3 12/04/17 16:29 Promyelocytes # 0.0 K/mm3 12/04/17 16:29 Blast Cells # 0.0 K/mm3 12/04/17 16:29 WBC Morphology Not Reportable 12/04/17 16:29 Hypersegmented Neuts Not Reportable 12/04/17 16:29 Hyposegmented Neuts Not Reportable 12/04/17 16:29 Hypogranular Neuts Not Reportable 12/04/17 16:29 Smudge Cells Not Reportable 12/04/17 16:29 Toxic Granulation Not Reportable 12/04/17 16:29 Toxic Vacuolation Not Reportable 12/04/17 16:29 Dohle Bodies Not Reportable 12/04/17 16:29 Pelger-Huet Anomaly Not Reportable 12/04/17 16:29 [place] Rods Not Reportable 12/04/17 16:29 Platelet Estimate Appears normal 12/04/17 16:29 Clumped Platelets Not Reportable 12/04/17 16:29 Plt Clumps, EDTA Not Reportable 12/04/17 16:29 Large Platelets Not Reportable 12/04/17 16:29 Giant Platelets Not Reportable 12/04/17 16:29 Platelet Satelliting Not Reportable 12/04/17 16:29 Plt Morphology Comment Not Reportable 12/04/17 16:29 RBC Morphology Normal 12/04/17 16:29 Dimorphic RBCs Not Reportable 12/04/17 16:29 Polychromasia Not Reportable 12/04/17 16:29 Hypochromasia Not Reportable 12/04/17 16:29 Poikilocytosis Not Reportable 12/04/17 16:29 Anisocytosis Not Reportable 12/04/17 16:29 Microcytosis Not Reportable 12/04/17 16:29 Macrocytosis Not Reportable 12/04/17 16:29 Spherocytes Not Reportable 12/04/17 16:29 Pappenheimer Bodies Not Reportable 12/04/17 16:29 Sickle Cells Not Reportable 12/04/17 16:29 Target Cells Not Reportable 12/04/17 16:29 Tear Drop Cells Not Reportable 12/04/17 16:29 Ovalocytes Not Reportable 12/04/17 16:29 Helmet Cells Not Reportable 12/04/17 16:29 [place]ll[place] Bodies Not Reportable 12/04/17 16:29 [place] Rings Not Reportable 12/04/17 16:29 [place] Cells Not Reportable 12/04/17 16:29 Bite Cells Not Reportable 12/04/17 16:29 Crenated Cell Not Reportable 12/04/17 16:29 Elliptocytes Not Reportable 12/04/17 16:29 Acanthocytes (Spur) Not Reportable 12/04/17 16:29 Rouleaux Not Reportable 12/04/17 16:29 Hemoglobin C Crystals Not Reportable 12/04/17 16:29 Schistocytes Not Reportable 12/04/17 16:29 Malaria parasites Not Reportable 12/04/17 16:29 Dharmesh Bodies Not Reportable 12/04/17 16:29 Hem Pathologist Commnt No 12/04/17 16:29 PT 19.9 Sec. (12.2-14.9) H 12/04/17 16:29 INR 1.59 (0.87-1.13) H 12/04/17 16:29 APTT 43.9 Sec. (24.2-36.6) H 12/04/17 16:29 VBG pH 7.316 (7.320-7.420) L 12/04/17 11:27 Sodium 135 mmol/L (137-145) L 12/04/17 20:49 Potassium 4.7 mmol/L (3.6-5.0) D 12/04/17 20:49 Chloride 99.2 mmol/L (98-107) 12/04/17 20:49 Carbon Dioxide 15 mmol/L (22-30) L 12/04/17 20:49 Anion Gap 26 mmol/L 12/04/17 20:49 BUN 70 mg/dL (9-20) H 12/04/17 20:49 Creatinine 3.1 mg/dL (0.8-1.5) H 12/04/17 20:49 Estimated GFR 20 ml/min 12/04/17 20:49 BUN/Creatinine Ratio 23 % 12/04/17 20:49 Glucose 108 mg/dL (75-100) H 12/04/17 20:49 POC Glucose 94 (70-105) 12/05/17 05:22 Lactic Acid 2.10 mmol/L (0.7-2.0) H* 12/04/17 20:49 Calcium 8.6 mg/dL (8.4-10.2) 12/04/17 20:49 Total Bilirubin 0.90 mg/dL (0.1-1.2) 12/04/17 11:27 AST 75 units/L (5-40) H 12/04/17 11:27 ALT 58 units/L (7-56) H 12/04/17 11:27 Alkaline Phosphatase 142 units/L (35-129) H 12/04/17 11:27 C-Reactive Protein 12.40 mg/dL (0.00-1.30) H 12/04/17 11:27 Total Protein 6.5 g/dL (6.3-8.2) 12/04/17 11:27 Albumin 2.8 g/dL (3.9-5) L 12/04/17 11:27 Albumin/Globulin Ratio 0.8 % 12/04/17 11:27 Urine Color Cammy (Yellow) 12/04/17 13:49 Urine Turbidity Clear (Clear) 12/04/17 13:49 Urine pH 5.0 (5.0-7.0) 12/04/17 13:49 Ur Specific [place] 1.010 (1.003-1.030) 12/04/17 13:49 Urine Protein 30 mg/dl mg/dL (Negative) 12/04/17 13:49 Urine Glucose (UA) >=500 mg/dL (Negative) 12/04/17 13:49 Urine Ketones Neg mg/dL (Negative) 12/04/17 13:49 Urine Blood Lg (Negative) 12/04/17 13:49 Urine Nitrite Neg (Negative) 12/04/17 13:49 Urine Bilirubin Neg (Negative) 12/04/17 13:49 Urine Urobilinogen < 2.0 mg/dL (<2.0) 12/04/17 13:49 Ur Leukocyte Esterase Tr (Negative) 12/04/17 13:49 Urine WBC (Auto) 37.0 /HPF (0.0-6.0) H 12/04/17 13:49 Urine RBC (Auto) > 182.0 /HPF (0.0-6.0) 12/04/17 13:49 U Epithel Cells (Auto) 1.0 /HPF (0-13.0) 12/04/17 13:49 Urine Bacteria (Auto) 1+ /HPF (Negative) 12/04/17 13:49 Urine Mucus Few /HPF 12/04/17 13:49
[2017-12-05] MEDS: VITAMIN C PO SCH ×2 (10:55→22:30)
[2017-12-05] MEDS: SODIUM CHLORIDE FLUSH SYRINGE 10 ML IV SCH (10:55)
[2017-12-05] MEDS: VITAMIN B-12 PO SCH (10:55)
[2017-12-05] MEDS: THERAGRAN-M Tab PO SCH (10:55)
[2017-12-05] MEDS: K-DUR PO SCH (10:55)
[2017-12-05] MEDS: ZYLOPRIM PO SCH (10:55)
[2017-12-05] MEDS: ZESTRIL PO SCH (11:53)
[2017-12-05] MEDS ORDERED: LOPRESSOR PO SCH (12:00)
[2017-12-05] MEDS ORDERED: CORDARONE 150 MG in D5W 100 ML IV ONE (12:00)
--- NOTE | 2017-12-05 12:25 | Consultation ---
History of Present Illness Consult date: 12/05/17 Consult reason: atrial fibrillation History of present illness: Mr Villalpando is a 72yr old male who was sent to the ED from his urologist office for evaluation. He was found to have bilateral nephrolithiasis with an obstructing right ureter stone on his initial workup in the ED. Patient is now in the CCU and is status post right ureteral stent. He denies chest pain and shortness of breath. An ECG is rapid atrial fibrillation, rate 117. A cardiac consultation is requested for management of atrial fibrillation. Patient has a history of chronic atrial fibrillation and is on eliquis for oral anticoagulation. There is no history of coronary artery disease. In 2104, he underwent a cardiac cath that reports no significant CAD, normal left ventricular ejection fraction. Past History Past Medical History: atrial fib, diabetes, hypertension, other (Morbid Obesity) Past Surgical History: No surgical history, Other (reviewed) Social history: . denies: smoking, alcohol abuse, prescription drug abuse, IV drug use Family history: no significant family history (reviewed) Medications and Allergies Allergies Allergy/AdvReac Type Severity Reaction Status Date / Time No Known Allergies Allergy Verified 12/04/17 11:29 Home Medications Medication Instructions Recorded Confirmed Last Taken Type ALBUTEROL Inhaler [Proair] 2 puff IH QID PRN 12/04/17 12/04/17 Unknown History Allopurinol [Zyloprim] 300 mg PO QDAY 12/04/17 12/04/17 12/03/17 History Apixaban [Eliquis] 5 mg PO BID 12/04/17 12/04/17 12/03/17 History Ascorbic Acid [Vitamin C] 500 mg PO BID 12/04/17 12/04/17 12/03/17 History Aspirin [Lo-Dose Aspirin EC] 81 mg PO DAILY 12/04/17 12/04/17 12/03/17 History Calcium Carbonate/Vitamin D3 2 each PO DAILY 12/04/17 12/04/17 12/03/17 History [Calcium 600-Vit D3 500 Softgel] Cyanocobalamin [Vitamin B-12] 1,000 mcg PO DAILY 12/04/17 12/04/17 12/03/17 History Dulaglutide [Trulicity] 1.5 mg SQ QWEEK 12/04/17 12/04/17 12/03/17 History Ergocalciferol (Vitamin D2) 2,000 unit PO BID 12/04/17 12/04/17 Unknown History [Vitamin D2] Ezetimibe/Simvastatin (Nf) 1 tab PO QHS 12/04/17 12/04/17 12/03/17 History [Vytorin 10-40 mg (Nf)] Furosemide [Lasix TAB] 40 mg PO BID 12/04/17 12/04/17 12/03/17 History Glimepiride [Amaryl] 4 mg PO QAM 12/04/17 12/04/17 12/03/17 History Glucosamine/D3/Boswellia Shari 1 each PO DAILY 12/04/17 12/04/17 12/03/17 History [Osteo Bi-Flex Tablet] Insulin Regular, Human [HumuLIN R] 0 unit SQ ACHS 12/04/17 12/04/17 12/03/17 History Linaclotide [Linzess] 145 mcg PO QDAY 12/04/17 12/04/17 12/03/17 History Lisinopril [Zestril TAB] 40 mg PO QDAY 12/04/17 12/04/17 12/03/17 History Multivit-Min/FA/Lycopen/Lutein 1 each PO DAILY 12/04/17 12/04/17 12/03/17 History [Adults 50+ Multivitamin Tablet] Naproxen Sodium [Aleve] 220 mg PO BID 12/04/17 12/04/17 12/03/17 History [place]-3/Dha/Epa/Fish Oil [Fish Oil 1 each PO DAILY 12/04/17 12/04/17 12/03/17 History 1,200 mg Softgel] Potassium Chloride [Klor-Con M20] 20 meq PO DAILY 12/04/17 12/04/17 12/03/17 History Zinc Acetate [Galzin] 50 mg PO 4XW 12/04/17 12/04/17 12/03/17 History Active Meds: Active Medications Albuterol (Proventil) 2.5 mg IH QIDRT PRN PRN Reason: Shortness Of Breath Last Admin: 12/05/17 08:48 Dose: 2.5 mg Allopurinol (Zyloprim) 100 mg PO QDAY [facility] Last Admin: 12/05/17 10:55 Dose: 100 mg Ascorbic Acid (Vitamin C) 500 mg PO BID [facility] Last Admin: 12/05/17 10:55 Dose: 500 mg Calcium/Vitamin D ([place] D 500 Mg-200 Unit) 2 each PO DAILY [facility] Cyanocobalamin (Vitamin B-12) 1,000 mcg PO DAILY [facility] Last Admin: 12/05/17 10:55 Dose: 1,000 mcg Dextrose (D50w (25gm) Syringe) 50 ml IV PRN PRN PRN Reason: Hypoglycemia Ezetimibe (Zetia) 10 mg PO QHS [facility] Last Admin: 12/04/17 23:52 Dose: 10 mg Fish Oil (Fish Oil) 1,000 mg PO QDAY [facility] Furosemide (Lasix) 40 mg PO 0600,1800 [facility] Last Admin: 12/05/17 06:05 Dose: 40 mg Phenylephrine HCl 100 mg/ (Sodium Chloride) 100 mls @ 3 mls/hr IV TITR [facility]; Protocol Last Titration: 12/04/17 23:56 Dose: 0 mcg/min, 0 mls/hr Sodium Chloride (Nacl 0.9% 1000 Ml) 1,000 mls @ 100 mls/hr IV DIRECT [facility] Last Admin: 12/05/17 01:57 Dose: 100 mls/hr Insulin Human Regular (Humulin R) 0 units SUB-Q Q6HR [facility]; Protocol Last Admin: 12/05/17 11:48 Dose: Not Given Lisinopril (Zestril) 40 mg PO QDAY [facility] Last Admin: 12/05/17 11:53 Dose: Not Given Miscellaneous Medication (Linaclotide [Linzess]) 145 mcg PO QDAY [facility] Multivitamins/Minerals (Theragran-M Tab) 1 each PO QDAY [facility] Last Admin: 12/05/17 10:55 Dose: 1 each Potassium Chloride (K-Dur) 20 meq PO DAILY [facility] Last Admin: 12/05/17 10:55 Dose: 20 meq Pravastatin Sodium (Pravachol) 80 mg PO QHS [facility] Last Admin: 12/04/17 23:52 Dose: 80 mg Sodium Chloride (Sodium Chloride Flush Syringe 10 Ml) 10 ml IV BID [facility] Last Admin: 12/05/17 10:55 Dose: 10 ml Sodium Chloride (Sodium Chloride Flush Syringe 10 Ml) 10 ml IV PRN PRN PRN Reason: LINE FLUSH Physical Examination Vital Signs Temp Pulse Resp BP Pulse Ox 99.0 F 136 H 20 79/50 94 12/04/17 11:14 12/04/17 11:14 12/04/17 11:14 12/04/17 11:14 12/04/17 11:14 General appearance: no acute distress HEENT: Positive: PERRL Cardiac: Positive: irregularly irregular Results 12/04/17 16:29 12/04/17 20:49 Coagulation 12/04/17 Range/Units 16:29 PT 19.9 H (12.2-14.9) Sec. INR 1.59 H (0.87-1.13) APTT 43.9 H (24.2-36.6) Sec. CBC 12/04/17 Range/Units 16:29 WBC 11.7 H (4.5-11.0) K/mm3 RBC 4.67 (3.65-5.03) M/mm3 Hgb 14.2 (11.8-15.2) gm/dl Hct 43.3 (35.5-45.6) % Plt Count 121 L (140-440) K/mm3 Comprehensive Metabolic Panel 12/04/17 12/04/17 12/04/17 Range/Units 11:27 17:22 20:49 Sodium 139 135 L (137-145) mmol/L Potassium 3.7 4.7 D (3.6-5.0) mmol/L Chloride 102.0 99.2 (98-107) mmol/L Carbon Dioxide 18 L 15 L (22-30) mmol/L BUN 70 H 70 H (9-20) mg/dL Creatinine 3.3 H 3.1 H (0.8-1.5) mg/dL Glucose 90 108 H (75-100) mg/dL Calcium 8.1 L 8.6 (8.4-10.2) mg/dL ALT 58 H (7-56) units/L Alkaline Phosphatase 142 H (35-129) units/L Albumin 2.8 L (3.9-5) g/dL Assessment and Plan - Patient Problems (1) Chronic atrial fibrillation Current Visit: Yes Status: Acute
--- NOTE | 2017-12-05 13:15 | Consultation ---
History of Present Illness - Reason for Consult Consult date: 12/05/17 - History of Present Illness Mr. Villalpando is a 72yo w/ history of recurrent nephrolithiasis recently treated for a UTI who presented to the ED with a 1-2 week history of fatigue, nausea, poor po intake. Upon arrival to the ED, patient was hypotensive with low grade fever. CT was notable for 1.4cm distal right ureteral stone w/ mod right hydronephrosis. Patient's urologist was consulted. He was taken to the OR emergently. Patient is now s/p cystoscopy, uretrotomy and stent. Nephrology consultation requested for SAUL Past History Past Medical History: atrial fib, diabetes, hypertension, other (Morbid Obesity) Past Surgical History: No surgical history, Other (reviewed) Social history: . denies: smoking, alcohol abuse, prescription drug abuse, IV drug use Family history: no significant family history (reviewed) Medications and Allergies Allergies Allergy/AdvReac Type Severity Reaction Status Date / Time No Known Allergies Allergy Verified 12/04/17 11:29 Home Medications Medication Instructions Recorded Confirmed Last Taken Type ALBUTEROL Inhaler [Proair] 2 puff IH QID PRN 12/04/17 12/04/17 Unknown History Allopurinol [Zyloprim] 300 mg PO QDAY 12/04/17 12/04/17 12/03/17 History Apixaban [Eliquis] 5 mg PO BID 12/04/17 12/04/17 12/03/17 History Ascorbic Acid [Vitamin C] 500 mg PO BID 12/04/17 12/04/17 12/03/17 History Aspirin [Lo-Dose Aspirin EC] 81 mg PO DAILY 12/04/17 12/04/17 12/03/17 History Calcium Carbonate/Vitamin D3 2 each PO DAILY 12/04/17 12/04/17 12/03/17 History [Calcium 600-Vit D3 500 Softgel] Cyanocobalamin [Vitamin B-12] 1,000 mcg PO DAILY 12/04/17 12/04/17 12/03/17 History Dulaglutide [Trulicity] 1.5 mg SQ QWEEK 12/04/17 12/04/17 12/03/17 History Ergocalciferol (Vitamin D2) 2,000 unit PO BID 12/04/17 12/04/17 Unknown History [Vitamin D2] Ezetimibe/Simvastatin (Nf) 1 tab PO QHS 12/04/17 12/04/17 12/03/17 History [Vytorin 10-40 mg (Nf)] Furosemide [Lasix TAB] 40 mg PO BID 12/04/17 12/04/17 12/03/17 History Glimepiride [Amaryl] 4 mg PO QAM 12/04/17 12/04/17 12/03/17 History Glucosamine/D3/Boswellia Shari 1 each PO DAILY 12/04/17 12/04/17 12/03/17 History [Osteo Bi-Flex Tablet] Insulin Regular, Human [HumuLIN R] 0 unit SQ ACHS 12/04/17 12/04/17 12/03/17 History Linaclotide [Linzess] 145 mcg PO QDAY 12/04/17 12/04/17 12/03/17 History Lisinopril [Zestril TAB] 40 mg PO QDAY 12/04/17 12/04/17 12/03/17 History Multivit-Min/FA/Lycopen/Lutein 1 each PO DAILY 12/04/17 12/04/17 12/03/17 History [Adults 50+ Multivitamin Tablet] Naproxen Sodium [Aleve] 220 mg PO BID 12/04/17 12/04/17 12/03/17 History [place]-3/Dha/Epa/Fish Oil [Fish Oil 1 each PO DAILY 12/04/17 12/04/17 12/03/17 History 1,200 mg Softgel] Potassium Chloride [Klor-Con M20] 20 meq PO DAILY 12/04/17 12/04/17 12/03/17 History Zinc Acetate [Galzin] 50 mg PO 4XW 12/04/17 12/04/17 12/03/17 History Active Meds: Active Medications Albuterol (Proventil) 2.5 mg IH QIDRT PRN PRN Reason: Shortness Of Breath Last Admin: 12/05/17 08:48 Dose: 2.5 mg Allopurinol (Zyloprim) 100 mg PO QDAY [facility] Last Admin: 12/05/17 10:55 Dose: 100 mg Ascorbic Acid (Vitamin C) 500 mg PO BID [facility] Last Admin: 12/05/17 10:55 Dose: 500 mg Calcium/Vitamin D ([place] D 500 Mg-200 Unit) 2 each PO DAILY [facility] Cyanocobalamin (Vitamin B-12) 1,000 mcg PO DAILY [facility] Last Admin: 12/05/17 10:55 Dose: 1,000 mcg Dextrose (D50w (25gm) Syringe) 50 ml IV PRN PRN PRN Reason: Hypoglycemia Ezetimibe (Zetia) 10 mg PO QHS [facility] Last Admin: 12/04/17 23:52 Dose: 10 mg Fish Oil (Fish Oil) 1,000 mg PO QDAY [facility] Furosemide (Lasix) 40 mg PO 0600,1800 [facility] Last Admin: 12/05/17 06:05 Dose: 40 mg Phenylephrine HCl 100 mg/ (Sodium Chloride) 100 mls @ 3 mls/hr IV TITR [facility]; Protocol Last Titration: 12/04/17 23:56 Dose: 0 mcg/min, 0 mls/hr Sodium Chloride (Nacl 0.9% 1000 Ml) 1,000 mls @ 100 mls/hr IV DIRECT [facility] Last Admin: 12/05/17 01:57 Dose: 100 mls/hr Insulin Human Regular (Humulin R) 0 units SUB-Q Q6HR [facility]; Protocol Last Admin: 12/05/17 11:48 Dose: Not Given Lisinopril (Zestril) 40 mg PO QDAY [facility] Last Admin: 12/05/17 11:53 Dose: Not Given Miscellaneous Medication (Linaclotide [Linzess]) 145 mcg PO QDAY [facility] Multivitamins/Minerals (Theragran-M Tab) 1 each PO QDAY [facility] Last Admin: 12/05/17 10:55 Dose: 1 each Potassium Chloride (K-Dur) 20 meq PO DAILY [facility] Last Admin: 12/05/17 10:55 Dose: 20 meq Pravastatin Sodium (Pravachol) 80 mg PO QHS [facility] Last Admin: 12/04/17 23:52 Dose: 80 mg Sodium Chloride (Sodium Chloride Flush Syringe 10 Ml) 10 ml IV BID [facility] Last Admin: 12/05/17 10:55 Dose: 10 ml Sodium Chloride (Sodium Chloride Flush Syringe 10 Ml) 10 ml IV PRN PRN PRN Reason: LINE FLUSH Review of Systems All systems: negative Constitutional: fatigue, weakness Cardiovascular: edema, shortness of breath Gastrointestinal: nausea, no vomiting Musculoskeletal: low back pain (right) Exam - Vital Signs Vital signs: Vital Signs Temp Pulse Resp BP Pulse Ox 99.0 F 136 H 20 79/50 94 12/04/17 11:14 12/04/17 11:14 12/04/17 11:14 12/04/17 11:14 12/04/17 11:14 - General Appearance General appearance: well-developed, well-nourished EENT: ATNC Respiratory: Clear to Ascultation Heart: irregular Gastrointestinal: Present: obese, other (no CVA tenderness). Absent: tenderness , distended Integumentary: warm and dry Neurologic: no focal deficit, alert and oriented x3 Musculoskeletal: Present: other (+edema) Psychiatric: cooperative Results - Lab Results 12/04/17 16:29 12/04/17 20:49 Most recent lab results Calcium 8.6 mg/dL (8.4-10.2) 12/04/17 20:49 Assessment and Plan Impression: * Acute kidney injury secondary to multifactorial etiologies: sepsis related ATN vs obstructive uropathy * Right ureteral stone w/ obstruction, right hydronephrosis; s/p cystoscopy, urethrotomy and stent. * Sepsis * Atrial fibrillation w/ RVR * Chronic anticoagulation * Metabolic acidosis Plan: * No acute indication for renal replacement therapy * Obtain BMP * Abx per primary team * Rate control per cardiology * Urology following * Avoid nephrotoxins * Dose medications for renal function
[2017-12-05] MEDS: CARDIZEM PO SCH ×2 (14:53→19:45)
[2017-12-05] MEDS: FISH OIL PO SCH (14:54)
[2017-12-05] MEDS: OYSCO D 500 MG-200 UNIT PO SCH (14:54)
[2017-12-05 18:16] LABS: Calcium 8.6 mg/dL (8.4-10.2)
[2017-12-05] MEDS: PRAVACHOL PO SCH (22:30)
[2017-12-05] MEDS: ZETIA PO SCH (22:31)
[2017-12-06] MEDS: HumuLIN R SUB-Q SCH ×4 (01:28→17:24)
[2017-12-06] MEDS: SODIUM CHLORIDE FLUSH SYRINGE 10 ML IV SCH ×3 (01:32→22:00)
[2017-12-06 04:39] LABS: Hematocrit 46.9 % (35.5-45.6); Hemoglobin 15.2 gm/dl (11.8-15.2); Mean Corpuscular HGB Conc 33 % (32-34); Mean Corpuscular Hemoglobin 30 pg (28-32); Mean Corpuscular Volume 92 fl (84-94); Platelet Count 135 K/mm3 (140-440); Red Cell Distribution Width 15.9 % (13.2-15.2)
[2017-12-06 04:49] LABS: Calcium 8.7 mg/dL (8.4-10.2)
[2017-12-06 06:13] LABS: Band Neutrophils # (Manual) 1.2 K/mm3; Total Cells Counted 100
[2017-12-06 06:14] LABS: Anisocytosis 1+; Basophils % (Manual) 0 % (0.0-1.8); Macrocytosis Few
[2017-12-06] MEDS: LASIX PO SCH ×2 (06:25→17:24)
[2017-12-06] MEDS: CARDIZEM PO SCH ×3 (06:25→11:37)
[2017-12-06] MEDS: NACL 0.9% 1000 ML 1,000 ML IV SCH (06:26)
--- NOTE | 2017-12-06 09:57 | Progress Note ---
Assessment and Plan Sepsis Acute kidney injury Right ureteral stone with obstruction s/p cystoscopy, urethrotomy and stent. Right hydronephrosis, moderate Atrial fibrillation, chronic on eliquis for oral anticoagulation as an outpatient Diabetes mellitus Thrombocytopenia Subjective Date of service: 12/06/17 Principal diagnosis: Sepsis, Hydronephrosis Interval history: Patient is sitting up in bedside chair. There are no cardiac complaints. Afib with mild RVR on telemetry monitoring. Objective Vital Signs Temp Pulse Pulse Resp BP Pulse Ox 12/06/17 09:20 97 12/06/17 09:01 106 H 25 H 112/70 94 12/06/17 08:01 117 H 22 135/69 12/06/17 08:00 97.3 F L 105 H 20 98 12/06/17 07:01 95 H 17 135/69 92 12/06/17 06:25 99 H 113/68 12/06/17 06:00 90 21 113/68 91 12/06/17 05:00 89 21 118/63 93 12/06/17 04:00 99 H 90 16 116/70 95 12/06/17 03:13 98.8 F 12/06/17 03:12 97 H 16 107/64 96 12/06/17 03:00 89 19 107/64 92 12/06/17 02:00 87 21 102/78 97 12/06/17 01:00 96 H 23 103/73 96 12/06/17 00:00 98.4 F 94 H 103 H 22 115/72 96 12/05/17 23:51 91 H 21 115/72 96 12/05/17 23:00 88 22 115/72 99 12/05/17 22:46 95 H 23 123/63 98 12/05/17 22:00 103 H 22 123/63 98 12/05/17 21:00 104 H 21 107/68 98 12/05/17 20:01 107 H 29 H 131/50 95 12/05/17 20:00 98 F 122 H 22 100 12/05/17 19:45 118 H 12/05/17 19:18 100 12/05/17 19:01 111 H 28 H 125/64 98 12/05/17 18:00 122 H 20 138/66 98 12/05/17 17:01 115 H 29 H 117/62 98 12/05/17 16:01 106 H 21 117/62 98 03/22/18 16:00 98.4 F 12/05/17 15:00 120 H 30 H 123/63 98 12/05/17 14:53 135 H 12/05/17 14:00 137 H 26 H 121/65 95 12/05/17 13:00 151 H 21 132/64 12/05/17 12:00 98.9 F 126 H 25 H 132/64 95 12/05/17 11:00 126 H 24 141/63 96 12/05/17 10:00 120 H 22 123/58 96 - Physical Examination General: No Apparent Distress HEENT: Positive: PERRL Cardiac: Positive: irregularly irregular - Labs and Meds CBC 12/06/17 Range/Units 03:58 WBC 9.5 (4.5-11.0) K/mm3 RBC 5.10 H (3.65-5.03) M/mm3 Hgb 15.2 (11.8-15.2) gm/dl Hct 46.9 H (35.5-45.6) % Plt Count 135 L (140-440) K/mm3 Comprehensive Metabolic Panel 12/05/17 12/06/17 Range/Units 17:41 03:58 Sodium 141 141 (137-145) mmol/L Potassium 4.4 3.9 (3.6-5.0) mmol/L Chloride 103.8 106.3 (98-107) mmol/L Carbon Dioxide 20 L 20 L (22-30) mmol/L BUN 61 H 54 H (9-20) mg/dL Creatinine 2.5 H 1.9 H (0.8-1.5) mg/dL Glucose 315 H 243 H (75-100) mg/dL Calcium 8.6 8.7 (8.4-10.2) mg/dL
[2017-12-06] MEDS: ZYLOPRIM PO SCH (10:09)
[2017-12-06] MEDS: THERAGRAN-M Tab PO SCH (10:09)
[2017-12-06] MEDS: K-DUR PO SCH (10:09)
[2017-12-06] MEDS: FISH OIL PO SCH (10:09)
[2017-12-06] MEDS: VITAMIN C PO SCH ×2 (10:09→21:58)
[2017-12-06] MEDS: ZESTRIL PO SCH (10:09)
[2017-12-06] MEDS: VITAMIN B-12 PO SCH (10:09)
--- NOTE | 2017-12-06 10:37 | Progress Note ---
Assessment and Plan Impression: * Acute kidney injury secondary to multifactorial etiologies: sepsis related ATN vs obstructive uropathy * Right ureteral stone w/ obstruction, right hydronephrosis; s/p cystoscopy, urethrotomy and stent. * Sepsis * Atrial fibrillation w/ RVR * Chronic anticoagulation * Metabolic acidosis Plan: * Renal function improving. Continue current management * Abx per primary team * Rate control per cardiology * Urology following * Avoid nephrotoxins * Dose medications for renal function Subjective Date of service: 12/06/17 Principal diagnosis: Sepsis, Hydronephrosis Interval history: Patient reports that he is feeling better. He reports breathing has improved. Objective - Vital Signs Vital signs: Vital Signs - 12hr 12/05/17 12/05/17 12/05/17 22:46 23:00 23:51 Temperature Pulse Rate 95 H 88 91 H Pulse Rate [ From Monitor] Respiratory 23 22 21 Rate Blood Pressure 123/63 115/72 115/72 O2 Sat by Pulse 98 99 96 Oximetry 12/06/17 12/06/17 12/06/17 00:00 01:00 02:00 Temperature 98.4 F Pulse Rate 94 H 96 H 87 Pulse Rate [ 103 H From Monitor] Respiratory 22 23 21 Rate Blood Pressure 115/72 103/73 102/78 O2 Sat by Pulse 96 96 97 Oximetry 12/06/17 12/06/17 12/06/17 03:00 03:12 03:13 Temperature 98.8 F Pulse Rate 89 97 H Pulse Rate [ From Monitor] Respiratory 19 16 Rate Blood Pressure 107/64 107/64 O2 Sat by Pulse 92 96 Oximetry 12/06/17 12/06/17 12/06/17 04:00 05:00 06:00 Temperature Pulse Rate 99 H 89 90 Pulse Rate [ 90 From Monitor] Respiratory 16 21 21 Rate Blood Pressure 116/70 118/63 113/68 O2 Sat by Pulse 95 93 91 Oximetry 12/06/17 12/06/17 12/06/17 06:25 07:01 08:00 Temperature 97.3 F L Pulse Rate 99 H 95 H Pulse Rate [ 105 H From Monitor] Respiratory 17 20 Rate Blood Pressure 113/68 135/69 O2 Sat by Pulse 92 98 Oximetry 12/06/17 12/06/17 12/06/17 08:01 09:01 09:15 Temperature Pulse Rate 117 H 106 H 114 H Pulse Rate [ From Monitor] Respiratory 22 25 H 27 H Rate Blood Pressure 135/69 112/70 112/70 O2 Sat by Pulse 94 98 Oximetry 12/06/17 12/06/17 12/06/17 09:20 09:31 09:45 Temperature Pulse Rate 103 H 115 H Pulse Rate [ From Monitor] Respiratory 24 32 H Rate Blood Pressure 112/70 112/70 O2 Sat by Pulse 97 96 96 Oximetry 12/06/17 12/06/17 12/06/17 10:00 10:01 10:09 Temperature Pulse Rate 98 H 108 H 106 H Pulse Rate [ From Monitor] Respiratory 23 Rate Blood Pressure 112/70 122/69 O2 Sat by Pulse 97 Oximetry 12/06/17 10:15 Temperature Pulse Rate 109 H Pulse Rate [ From Monitor] Respiratory 17 Rate Blood Pressure 122/69 O2 Sat by Pulse 97 Oximetry - General Appearance General appearance: well-developed, well-nourished, obese EENT: ATNC Neck: no JVD Respiratory: Present: Clear to Ascultation Cardiology: irregular Gastrointestinal: obese Neurologic: no focal deficit, alert and oriented x3 Musculoskeletal: other (trace edema; chronic venous stasis changes) Psychiatric: mood/affect appropriate, cooperative - Lab 12/06/17 03:58 12/06/17 03:58 Most recent lab results Calcium 8.7 mg/dL (8.4-10.2) 12/06/17 03:58
--- NOTE | 2017-12-06 10:47 | Progress Note ---
Assessment and Plan Assessment and plan: Sepsis. Continue IV antibiotics and IV fluid hydration. Follow-up serial lactic acid levels. Follow-up UA, urine and blood cultures. Paroxysmal Atrial fibrillation with RVR. Cardiology following. Continue Cardizem. Rate controlled. Check echocardiogram. Continue eliquis. Acute on chronic renal failure. Improved. Etiology is multifactorial secondary to acute kidney injury from sepsis/ATN/vasomotor nephropathy/volume depletion and obstructive uropathy from ureteral stone/stricture. Continue IV fluid hydration and follow BMP closely. Nephrology following. Obstructive uropathy/hydronephrosis. Etiology secondary to Right ureteral stone /stricture. Patient is status post cystoscopic stent placement. Diabetes mellitus type 2. Continue Accu-Cheks and sliding scale insulin. Hypertension. Resume antihypertensive medications. Disposition. Patient will be transferred to the floor. History Interval history: No new issues overnight. Hospitalist Physical - Constitutional Vitals: Temp Pulse Resp BP Pulse Ox 97.3 F L 109 H 17 122/69 97 12/06/17 08:00 12/06/17 10:15 12/06/17 10:15 12/06/17 10:15 12/06/17 10:15 General appearance: Present: no acute distress - EENT Eyes: Present: PERRL, EOM intact ENT: hearing intact, clear oral mucosa, dentition normal - Neck Neck: Present: supple, normal ROM - Respiratory Respiratory effort: normal Respiratory: bilateral: CTA - Cardiovascular Rhythm: regular Heart Sounds: Present: S1 & S2. Absent: gallop, rub - Extremities Extremities: no ischemia, No edema, Full ROM - Abdominal General gastrointestinal: soft, non-tender, non-distended, normal bowel sounds - Integumentary Integumentary: Present: clear, warm, dry - Neurologic Neurologic: CNII-XII intact, moves all extremities Results - Labs CBC & Chem 7: 12/06/17 03:58 12/06/17 03:58 Labs: Laboratory Last Values WBC 9.5 K/mm3 (4.5-11.0) 12/06/17 03:58 RBC 5.10 M/mm3 (3.65-5.03) H 12/06/17 03:58 Hgb 15.2 gm/dl (11.8-15.2) 12/06/17 03:58 Hct 46.9 % (35.5-45.6) H 12/06/17 03:58 MCV 92 fl (84-94) 12/06/17 03:58 MCH 30 pg (28-32) 12/06/17 03:58 MCHC 33 % (32-34) 12/06/17 03:58 RDW 15.9 % (13.2-15.2) H 12/06/17 03:58 Plt Count 135 K/mm3 (140-440) L 12/06/17 03:58 Lymph % (Auto) 6.5 % (13.4-35.0) L 12/04/17 11:27 [place] % (Auto) Switch Technician 12/06/17 03:58 Eos % (Auto) 0.2 % (0.0-4.3) 12/04/17 11:27 Baso % (Auto) 0.3 % (0.0-1.8) 12/04/17 11:27 Lymph # 0.8 K/mm3 (1.2-5.4) L 12/04/17 11:27 [place] # 1.8 K/mm3 (0.0-0.8) H 12/04/17 11:27 Eos # 0.0 K/mm3 (0.0-0.4) 12/04/17 11:27 Baso # 0.0 K/mm3 (0.0-0.1) 12/04/17 11:27 Add Manual Diff Complete 12/06/17 03:58 Total Counted 100 12/06/17 03:58 Seg Neutrophils % 78.3 % (40.0-70.0) H 12/04/17 11:27 Seg Neuts % (Manual) 60.0 % (40.0-70.0) 12/06/17 03:58 Band Neutrophils % 13.0 % 12/06/17 03:58 Lymphocytes % (Manual) 9.0 % (13.4-35.0) L 12/06/17 03:58 Reactive Lymphs % (Man) 0 % 12/06/17 03:58 Monocytes % (Manual) 14.0 % (0.0-7.3) H 12/06/17 03:58 Eosinophils % (Manual) 4.0 % (0.0-4.3) 12/06/17 03:58 Basophils % (Manual) 0 % (0.0-1.8) 12/06/17 03:58 Metamyelocytes % 0 % 12/06/17 03:58 Myelocytes % 0 % 12/06/17 03:58 Promyelocytes % 0 % 12/06/17 03:58 Blast Cells % 0 % 12/06/17 03:58 Nucleated RBC % Not Reportable 12/06/17 03:58 Seg Neutrophils # 9.5 K/mm3 (1.8-7.7) H 12/04/17 11:27 Seg Neutrophils # Man 5.7 K/mm3 (1.8-7.7) 12/06/17 03:58 Band Neutrophils # 1.2 K/mm3 12/06/17 03:58 Lymphocytes # (Manual) 0.9 K/mm3 (1.2-5.4) L 12/06/17 03:58 Abs React Lymphs (Man) 0.0 K/mm3 12/06/17 03:58 Monocytes # (Manual) 1.3 K/mm3 (0.0-0.8) H 12/06/17 03:58 Eosinophils # (Manual) 0.4 K/mm3 (0.0-0.4) 12/06/17 03:58 Basophils # (Manual) 0.0 K/mm3 (0.0-0.1) 12/06/17 03:58 Metamyelocytes # 0.0 K/mm3 12/06/17 03:58 Myelocytes # 0.0 K/mm3 12/06/17 03:58 Promyelocytes # 0.0 K/mm3 12/06/17 03:58 Blast Cells # 0.0 K/mm3 12/06/17 03:58 WBC Morphology Not Reportable 12/06/17 03:58 Hypersegmented Neuts Not Reportable 12/06/17 03:58 Hyposegmented Neuts Not Reportable 12/06/17 03:58 Hypogranular Neuts Not Reportable 12/06/17 03:58 Smudge Cells Not Reportable 12/06/17 03:58 Toxic Granulation Not Reportable 12/06/17 03:58 Toxic Vacuolation Not Reportable 12/06/17 03:58 Dohle Bodies Not Reportable 12/06/17 03:58 Pelger-Huet Anomaly Not Reportable 12/06/17 03:58 [place] Rods Not Reportable 12/06/17 03:58 Platelet Estimate Appears normal 12/06/17 03:58 Clumped Platelets Not Reportable 12/06/17 03:58 Plt Clumps, EDTA Not Reportable 12/06/17 03:58 Large Platelets Not Reportable 12/06/17 03:58 Giant Platelets Not Reportable 12/06/17 03:58 Platelet Satelliting Not Reportable 12/06/17 03:58 Plt Morphology Comment Not Reportable 12/06/17 03:58 RBC Morphology Not Reportable 12/06/17 03:58 Dimorphic RBCs Not Reportable 12/06/17 03:58 Polychromasia Not Reportable 12/06/17 03:58 Hypochromasia Not Reportable 12/06/17 03:58 Poikilocytosis Not Reportable 12/06/17 03:58 Anisocytosis 1+ 12/06/17 03:58 Microcytosis Not Reportable 12/06/17 03:58 Macrocytosis Few 12/06/17 03:58 Spherocytes Not Reportable 12/06/17 03:58 Pappenheimer Bodies Not Reportable 12/06/17 03:58 Sickle Cells Not Reportable 12/06/17 03:58 Target Cells Not Reportable 12/06/17 03:58 Tear Drop Cells Not Reportable 12/06/17 03:58 Ovalocytes Not Reportable 12/06/17 03:58 Helmet Cells Not Reportable 12/06/17 03:58 [place] Bodies Not Reportable 12/06/17 03:58 [place] Rings Not Reportable 12/06/17 03:58 Faye Cells Not Reportable 12/06/17 03:58 Bite Cells Not Reportable 12/06/17 03:58 Crenated Cell Not Reportable 12/06/17 03:58 Elliptocytes Not Reportable 12/06/17 03:58 Acanthocytes (Spur) Not Reportable 12/06/17 03:58 Rouleaux Not Reportable 12/06/17 03:58 Hemoglobin C Crystals Not Reportable 12/06/17 03:58 Schistocytes Not Reportable 12/06/17 03:58 Malaria parasites Not Reportable 12/06/17 03:58 Dharmesh Bodies Not Reportable 12/06/17 03:58 Hem Pathologist Commnt No 12/06/17 03:58 PT 19.9 Sec. (12.2-14.9) H 12/04/17 16:29 INR 1.59 (0.87-1.13) H 12/04/17 16:29 APTT 43.9 Sec. (24.2-36.6) H 12/04/17 16:29 VBG pH 7.316 (7.320-7.420) L 12/04/17 11:27 Sodium 141 mmol/L (137-145) 12/06/17 03:58 Potassium 3.9 mmol/L (3.6-5.0) 12/06/17 03:58 Chloride 106.3 mmol/L (98-107) 12/06/17 03:58 Carbon Dioxide 20 mmol/L (22-30) L 12/06/17 03:58 Anion Gap 19 mmol/L 12/06/17 03:58 BUN 54 mg/dL (9-20) H 12/06/17 03:58 Creatinine 1.9 mg/dL (0.8-1.5) H 12/06/17 03:58 Estimated GFR 35 ml/min 12/06/17 03:58 BUN/Creatinine Ratio 28 % 12/06/17 03:58 Glucose 243 mg/dL (75-100) H 12/06/17 03:58 POC Glucose 243 (70-105) H 12/06/17 05:02 Lactic Acid 2.10 mmol/L (0.7-2.0) H* 12/04/17 20:49 Calcium 8.7 mg/dL (8.4-10.2) 12/06/17 03:58 Total Bilirubin 0.90 mg/dL (0.1-1.2) 12/04/17 11:27 AST 75 units/L (5-40) H 12/04/17 11:27 ALT 58 units/L (7-56) H 12/04/17 11:27 Alkaline Phosphatase 142 units/L (35-129) H 12/04/17 11:27 C-Reactive Protein 12.40 mg/dL (0.00-1.30) H 12/04/17 11:27 Total Protein 6.5 g/dL (6.3-8.2) 12/04/17 11:27 Albumin 2.8 g/dL (3.9-5) L 12/04/17 11:27 Albumin/Globulin Ratio 0.8 % 12/04/17 11:27 Urine Color Cammy (Yellow) 12/04/17 13:49 Urine Turbidity Clear (Clear) 12/04/17 13:49 Urine pH 5.0 (5.0-7.0) 12/04/17 13:49 Ur Specific [place] 1.010 (1.003-1.030) 12/04/17 13:49 Urine Protein 30 mg/dl mg/dL (Negative) 12/04/17 13:49 Urine Glucose (UA) >=500 mg/dL (Negative) 12/04/17 13:49 Urine Ketones Neg mg/dL (Negative) 12/04/17 13:49 Urine Blood Lg (Negative) 12/04/17 13:49 Urine Nitrite Neg (Negative) 12/04/17 13:49 Urine Bilirubin Neg (Negative) 12/04/17 13:49 Urine Urobilinogen < 2.0 mg/dL (<2.0) 12/04/17 13:49 Ur Leukocyte Esterase Tr (Negative) 12/04/17 13:49 Urine WBC (Auto) 37.0 /HPF (0.0-6.0) H 12/04/17 13:49 Urine RBC (Auto) > 182.0 /HPF (0.0-6.0) 12/04/17 13:49 U Epithel Cells (Auto) 1.0 /HPF (0-13.0) 12/04/17 13:49 Urine Bacteria (Auto) 1+ /HPF (Negative) 12/04/17 13:49 Urine Mucus Few /HPF 12/04/17 13:49
--- NOTE | 2017-12-06 11:18 | Progress Note ---
Assessment and Plan wbc down as is creatinine will need tx of stone after sepsis resolved Subjective Date of service: 12/06/17 Principal diagnosis: Sepsis, Hydronephrosis Objective - Constitutional Vitals: Vital Signs - 12hr 12/05/17 12/06/17 12/06/17 23:51 00:00 01:00 Temperature 98.4 F Pulse Rate 91 H 94 H 96 H Pulse Rate [ 103 H From Monitor] Respiratory 21 22 23 Rate Blood Pressure 115/72 115/72 103/73 O2 Sat by Pulse 96 96 96 Oximetry 12/06/17 12/06/17 12/06/17 02:00 03:00 03:12 Temperature Pulse Rate 87 89 97 H Pulse Rate [ From Monitor] Respiratory 21 19 16 Rate Blood Pressure 102/78 107/64 107/64 O2 Sat by Pulse 97 92 96 Oximetry 12/06/17 12/06/17 12/06/17 03:13 04:00 05:00 Temperature 98.8 F Pulse Rate 99 H 89 Pulse Rate [ 90 From Monitor] Respiratory 16 21 Rate Blood Pressure 116/70 118/63 O2 Sat by Pulse 95 93 Oximetry 12/06/17 12/06/17 12/06/17 06:00 06:25 07:01 Temperature Pulse Rate 90 99 H 95 H Pulse Rate [ From Monitor] Respiratory 21 17 Rate Blood Pressure 113/68 113/68 135/69 O2 Sat by Pulse 91 92 Oximetry 12/06/17 12/06/17 12/06/17 08:00 08:01 09:01 Temperature 97.3 F L Pulse Rate 117 H 106 H Pulse Rate [ 105 H From Monitor] Respiratory 20 22 25 H Rate Blood Pressure 135/69 112/70 O2 Sat by Pulse 98 94 Oximetry 12/06/17 12/06/17 12/06/17 09:15 09:20 09:31 Temperature Pulse Rate 114 H 103 H Pulse Rate [ From Monitor] Respiratory 27 H 24 Rate Blood Pressure 112/70 112/70 O2 Sat by Pulse 98 97 96 Oximetry 12/06/17 12/06/17 12/06/17 09:45 10:00 10:01 Temperature Pulse Rate 115 H 98 H 108 H Pulse Rate [ From Monitor] Respiratory 32 H 23 Rate Blood Pressure 112/70 112/70 O2 Sat by Pulse 96 97 Oximetry 03/23/18 03/23/18 03/23/18 10:09 10:15 10:31 Temperature Pulse Rate 106 H 109 H 103 H Pulse Rate [ From Monitor] Respiratory 17 19 Rate Blood Pressure 122/69 122/69 122/69 O2 Sat by Pulse 97 97 Oximetry 12/06/17 12/06/17 10:45 11:01 Temperature Pulse Rate 104 H 105 H Pulse Rate [ From Monitor] Respiratory 24 28 H Rate Blood Pressure 122/69 106/75 O2 Sat by Pulse 92 99 Oximetry - Labs CBC & Chem 7: 12/06/17 03:58 12/06/17 03:58 Labs: Abnormal lab results 12/05/17 12/05/17 12/05/17 Range/Units 11:40 17:25 17:41 RBC (3.65-5.03) M/mm3 Hct (35.5-45.6) % RDW (13.2-15.2) % Plt Count (140-440) K/mm3 Lymphocytes % (Manual) (13.4-35.0) % Monocytes % (Manual) (0.0-7.3) % Lymphocytes # (Manual) (1.2-5.4) K/mm3 Monocytes # (Manual) (0.0-0.8) K/mm3 Carbon Dioxide 20 L (22-30) mmol/L BUN 61 H (9-20) mg/dL Creatinine 2.5 H (0.8-1.5) mg/dL Glucose 315 H (75-100) mg/dL POC Glucose 169 H 313 H (70-105) 12/06/17 12/06/17 12/06/17 Range/Units 00:11 03:58 03:58 RBC 5.10 H (3.65-5.03) M/mm3 Hct 46.9 H (35.5-45.6) % RDW 15.9 H (13.2-15.2) % Plt Count 135 L (140-440) K/mm3 Lymphocytes % (Manual) 9.0 L (13.4-35.0) % Monocytes % (Manual) 14.0 H (0.0-7.3) % Lymphocytes # (Manual) 0.9 L (1.2-5.4) K/mm3 Monocytes # (Manual) 1.3 H (0.0-0.8) K/mm3 Carbon Dioxide 20 L (22-30) mmol/L BUN 54 H (9-20) mg/dL Creatinine 1.9 H (0.8-1.5) mg/dL Glucose 243 H (75-100) mg/dL POC Glucose 277 H (70-105) 12/06/17 Range/Units 05:02 RBC (3.65-5.03) M/mm3 Hct (35.5-45.6) % RDW (13.2-15.2) % Plt Count (140-440) K/mm3 Lymphocytes % (Manual) (13.4-35.0) % Monocytes % (Manual) (0.0-7.3) % Lymphocytes # (Manual) (1.2-5.4) K/mm3 Monocytes # (Manual) (0.0-0.8) K/mm3 Carbon Dioxide (22-30) mmol/L BUN (9-20) mg/dL Creatinine (0.8-1.5) mg/dL Glucose (75-100) mg/dL POC Glucose 243 H (70-105)
[2017-12-06] MEDS: OYSCO D 500 MG-200 UNIT PO SCH (11:36)
--- NOTE | 2017-12-06 12:47 | Progress Note ---
Assessment and Plan ASSESSMENT AND PLAN: Severe sepsis with shock. Nephrolithiasis with obstructive uropathy. Morbid obesity. Obstructive sleep apnea. Leukocytosis Mild hyponatremia. Mild metabolic acidosis. lactic acidosis. Elevated serum transaminases (Doing much better) - continue and complete AB's per ID recs - continue BIPAP qhs / while asleep - s/p Cysto DVIU with insertion of right ureteral stent - continue GI & VTE prophylaxis - PT/OT as tolerated - gentle hydration - Azotemia improving - definitive stone removal once sepsis resolves - OK to transfer to medical floor ....35' Subjective Date of service: 12/06/17 Principal diagnosis: Severe Sepsis with Shock; Hydronephrosis with Obstructive Uropathy; SAUL Interval history: Patient seen today for: Seen and examined at bedside; 24-hour events reviewed; nursing and respiratory care staff consulted; no adverse overnight events reported to me; looks and feels better; tolerating BIPAP much better after humidification added; denies acute chest or abdominal pain; No N/V/F/C Objective Vital Signs - 12hr 12/06/17 12/06/17 12/06/17 01:00 02:00 03:00 Temperature Pulse Rate 96 H 87 89 Pulse Rate [ From Monitor] Respiratory 23 21 19 Rate Blood Pressure 103/73 102/78 107/64 O2 Sat by Pulse 96 97 92 Oximetry 12/06/17 12/06/17 12/06/17 03:12 03:13 04:00 Temperature 98.8 F Pulse Rate 97 H 99 H Pulse Rate [ 90 From Monitor] Respiratory 16 16 Rate Blood Pressure 107/64 116/70 O2 Sat by Pulse 96 95 Oximetry 12/06/17 12/06/17 12/06/17 05:00 06:00 06:25 Temperature Pulse Rate 89 90 99 H Pulse Rate [ From Monitor] Respiratory 21 21 Rate Blood Pressure 118/63 113/68 113/68 O2 Sat by Pulse 93 91 Oximetry 12/06/17 12/06/17 12/06/17 07:01 08:00 08:01 Temperature 97.3 F L Pulse Rate 95 H 117 H Pulse Rate [ 105 H From Monitor] Respiratory 17 20 22 Rate Blood Pressure 135/69 135/69 O2 Sat by Pulse 92 98 Oximetry 12/06/17 12/06/17 12/06/17 09:01 09:15 09:20 Temperature Pulse Rate 106 H 114 H Pulse Rate [ From Monitor] Respiratory 25 H 27 H Rate Blood Pressure 112/70 112/70 O2 Sat by Pulse 94 98 97 Oximetry 12/06/17 12/06/17 12/06/17 09:31 09:45 10:00 Temperature Pulse Rate 103 H 115 H 98 H Pulse Rate [ From Monitor] Respiratory 24 32 H Rate Blood Pressure 112/70 112/70 O2 Sat by Pulse 96 96 Oximetry 12/06/17 12/06/17 12/06/17 10:01 10:09 10:15 Temperature Pulse Rate 108 H 106 H 109 H Pulse Rate [ From Monitor] Respiratory 23 17 Rate Blood Pressure 112/70 122/69 122/69 O2 Sat by Pulse 97 97 Oximetry 12/06/17 12/06/17 12/06/17 10:31 10:45 11:01 Temperature Pulse Rate 103 H 104 H 105 H Pulse Rate [ From Monitor] Respiratory 19 24 28 H Rate Blood Pressure 122/69 122/69 106/75 O2 Sat by Pulse 97 92 99 Oximetry 12/06/17 12/06/17 11:37 11:54 Temperature Pulse Rate 102 H Pulse Rate [ 102 H From Monitor] Respiratory 22 Rate Blood Pressure 106/75 O2 Sat by Pulse 98 Oximetry Constitutional: no acute distress, other (obese) Eyes: non-icteric ENT: oropharynx moist, other (large neck circumference) Neck: supple, no lymphadenopathy, no JVD, other (no thyromegally; mallampatti 4) Effort: normal Ascultation: Bilateral: clear, rhonchi (inspiratory in bases L>R) Percussion: Bilateral: not dull Cardiovascular: irregular rhythm, other (S1,S2, no murmurs, gallops or rubs) Gastrointestinal: normoactive bowel sounds, soft, non-tender, non-distended, other (No hepatoslenomegaly) Integumentary: rash (stasis dermatitis to legs) Extremities: no cyanosis, no edema, pulses normal, other (Chronic venous stasis dermatitis) Neurologic: normal mental status, non-focal exam, pupils equal and round, CN II- XII normal, motor strength normal and Psychiatric: mood appropriate, affect normal CBC and BMP: 12/07/17 04:54 12/07/17 04:54 ABG, PT/INR, D-dimer: PT/INR, D-dimer PT 19.9 Sec. (12.2-14.9) H 12/04/17 16:29 INR 1.59 (0.87-1.13) H 12/04/17 16:29 Abnormal lab findings: Abnormal Labs 12/04/17 12/04/17 12/04/17 11:27 11:27 11:27 WBC 12.1 H RBC 5.37 H Hgb 16.3 H Hct 48.7 H RDW 15.7 H Plt Count 136 L Lymph % (Auto) 6.5 L [place] % (Auto) 14.7 H Lymph # 0.8 L [place] # 1.8 H Seg Neutrophils % 78.3 H Lymphocytes % (Manual) Monocytes % (Manual) Seg Neutrophils # 9.5 H Seg Neutrophils # Man Lymphocytes # (Manual) Monocytes # (Manual) PT 20.5 H INR 1.65 H APTT 40.2 H VBG pH Sodium 133 L Chloride 93.9 L Carbon Dioxide 20 L BUN 79 H Creatinine 3.8 H Glucose 153 H POC Glucose Lactic Acid Calcium AST 75 H ALT 58 H Alkaline Phosphatase 142 H C-Reactive Protein Albumin 2.8 L Urine WBC (Auto) 12/04/17 12/04/17 12/04/17 11:27 11:27 11:27 WBC RBC Hgb Hct RDW Plt Count Lymph % (Auto) [place] % (Auto) Lymph # [place] # Seg Neutrophils % Lymphocytes % (Manual) Monocytes % (Manual) Seg Neutrophils # Seg Neutrophils # Man Lymphocytes # (Manual) Monocytes # (Manual) PT INR APTT VBG pH 7.316 L Sodium Chloride Carbon Dioxide BUN Creatinine Glucose POC Glucose Lactic Acid 2.30 H* Calcium AST ALT Alkaline Phosphatase C-Reactive Protein 12.40 H Albumin Urine WBC (Auto) 12/04/17 12/04/17 12/04/17 13:49 16:29 16:29 WBC 11.7 H RBC Hgb Hct RDW 15.9 H Plt Count 121 L Lymph % (Auto) [place] % (Auto) Lymph # [place] # Seg Neutrophils % Lymphocytes % (Manual) 5.0 L Monocytes % (Manual) 19.0 H Seg Neutrophils # Seg Neutrophils # Man 8.2 H Lymphocytes # (Manual) 0.6 L Monocytes # (Manual) 2.2 H PT INR APTT VBG pH Sodium Chloride Carbon Dioxide BUN Creatinine Glucose POC Glucose Lactic Acid 2.20 H* Calcium AST ALT Alkaline Phosphatase C-Reactive Protein Albumin Urine WBC (Auto) 37.0 H 12/04/17 12/04/17 12/04/17 16:29 17:22 20:49 WBC RBC Hgb Hct RDW Plt Count Lymph % (Auto) [place] % (Auto) Lymph # [place] # Seg Neutrophils % Lymphocytes % (Manual) Monocytes % (Manual) Seg Neutrophils # Seg Neutrophils # Man Lymphocytes # (Manual) Monocytes # (Manual) PT 19.9 H INR 1.59 H APTT 43.9 H VBG pH Sodium Chloride Carbon Dioxide 18 L BUN 70 H Creatinine 3.3 H Glucose POC Glucose Lactic Acid 2.10 H* Calcium 8.1 L AST ALT Alkaline Phosphatase C-Reactive Protein Albumin Urine WBC (Auto) 12/04/17 12/05/17 12/05/17 20:49 11:40 17:25 WBC RBC Hgb Hct RDW Plt Count Lymph % (Auto) [place] % (Auto) Lymph # [place] # Seg Neutrophils % Lymphocytes % (Manual) Monocytes % (Manual) Seg Neutrophils # Seg Neutrophils # Man Lymphocytes # (Manual) Monocytes # (Manual) PT INR APTT VBG pH Sodium 135 L Chloride Carbon Dioxide 15 L BUN 70 H Creatinine 3.1 H Glucose 108 H POC Glucose 169 H 313 H Lactic Acid Calcium AST ALT Alkaline Phosphatase C-Reactive Protein Albumin Urine WBC (Auto) 12/05/17 12/06/17 12/06/17 17:41 00:11 03:58 WBC RBC 5.10 H Hgb Hct 46.9 H RDW 15.9 H Plt Count 135 L Lymph % (Auto) [place] % (Auto) Lymph # [place] # Seg Neutrophils % Lymphocytes % (Manual) 9.0 L Monocytes % (Manual) 14.0 H Seg Neutrophils # Seg Neutrophils # Man Lymphocytes # (Manual) 0.9 L Monocytes # (Manual) 1.3 H PT INR APTT VBG pH Sodium Chloride Carbon Dioxide 20 L BUN 61 H Creatinine 2.5 H Glucose 315 H POC Glucose 277 H Lactic Acid Calcium AST ALT Alkaline Phosphatase C-Reactive Protein Albumin Urine WBC (Auto) 12/06/17 12/06/17 03:58 05:02 WBC RBC Hgb Hct RDW Plt Count Lymph % (Auto) [place] % (Auto) Lymph # [place] # Seg Neutrophils % Lymphocytes % (Manual) Monocytes % (Manual) Seg Neutrophils # Seg Neutrophils # Man Lymphocytes # (Manual) Monocytes # (Manual) PT INR APTT VBG pH Sodium Chloride Carbon Dioxide 20 L BUN 54 H Creatinine 1.9 H Glucose 243 H POC Glucose 243 H Lactic Acid Calcium AST ALT Alkaline Phosphatase C-Reactive Protein Albumin Urine WBC (Auto) Chest x-ray: image reviewed (cardiomegaly; clear otherwise; lordotic film) Allied health notes reviewed: nursing
[2017-12-06] MEDS: HEPARIN SUB-Q SCH ×2 (16:01→21:59)
[2017-12-06] MEDS: CARDIZEM CD PO SCH (16:02)
[2017-12-06] MEDS: LANTUS SUB-Q SCH (16:02)
[2017-12-06] MEDS: PRAVACHOL PO SCH (21:58)
[2017-12-06] MEDS: ZETIA PO SCH (21:58)
[2017-12-07 05:11] LABS: Hematocrit 49.6 % (35.5-45.6); Hemoglobin 16.4 gm/dl (11.8-15.2); Mean Corpuscular HGB Conc 33 % (32-34); Mean Corpuscular Hemoglobin 30 pg (28-32); Mean Corpuscular Volume 91 fl (84-94); Platelet Count 156 K/mm3 (140-440); Red Blood Count 5.46 M/mm3 (3.65-5.03); Red Cell Distribution Width 16.1 % (13.2-15.2)
[2017-12-07] MEDS: LASIX PO SCH ×2 (05:25→17:38)
[2017-12-07] MEDS: CARDIZEM CD PO SCH ×2 (05:26→17:40)
[2017-12-07] MEDS: HEPARIN SUB-Q SCH ×3 (05:26→22:31)
[2017-12-07] MEDS: HumuLIN R SUB-Q SCH ×4 (05:27→17:38)
[2017-12-07 05:32] LABS: Calcium 8.9 mg/dL (8.4-10.2)
[2017-12-07 06:35] LABS: Band Neutrophils # (Manual) 0.6 K/mm3; Basophils % (Manual) 0 % (0.0-1.8); Total Cells Counted 100
[2017-12-07 06:36] LABS: Anisocytosis 1+
[2017-12-07] MEDS: ZYLOPRIM PO SCH (09:27)
[2017-12-07] MEDS: LANTUS SUB-Q SCH (09:27)
[2017-12-07] MEDS: FISH OIL PO SCH (09:27)
[2017-12-07] MEDS: K-DUR PO SCH (09:28)
[2017-12-07] MEDS: VITAMIN C PO SCH ×2 (09:28→22:31)
[2017-12-07] MEDS: OYSCO D 500 MG-200 UNIT PO SCH (09:28)
[2017-12-07] MEDS: VITAMIN B-12 PO SCH (09:28)
[2017-12-07] MEDS: THERAGRAN-M Tab PO SCH (09:28)
[2017-12-07] MEDS: ZESTRIL PO SCH (09:28)
--- NOTE | 2017-12-07 10:52 | Progress Note ---
Assessment and Plan Patient alert, awake. Weak. Resting on nasal canula. O2 saturation 98% on 3 litres O2.Complaining slight cough. No acute respiratory distress. - Patient Problems (1) Metabolic acidosis Current Visit: Yes Status: Acute Plan to address problem: Obtaining ABGs (2) Acute on chronic renal failure Current Visit: Yes Status: Acute Qualifiers: Acute renal failure type: with acute tubular necrosis Plan to address problem: Management as per nephrology. (3) Atrial fibrillation Current Visit: Yes Status: Acute Qualifiers: Atrial fibrillation type: chronic Qualified Code(s): I48.2 - Chronic atrial fibrillation Plan to address problem: Management as per primary and cardiology. (4) Diabetes Current Visit: Yes Status: Acute Plan to address problem: Management as per primary care. (5) Morbid (severe) obesity due to excess calories Current Visit: Yes Status: Acute Plan to address problem: Weight reduction diet. (6) Tobacco use Current Visit: Yes Status: Acute Plan to address problem: History of tobacco use 40 years. Stopped smoking 8 years ago. Recommend PFTs as out patient. (7) Sleep apnea with use of continuous positive airway pressure (CPAP) Current Visit: Yes Status: Acute Plan to address problem: Patient is on BIPAP during night time. Subjective Date of service: 12/07/17 Principal diagnosis: Severe Sepsis with Shock; Hydronephrosis with Obstructive Uropathy; SAUL Interval history: Patient alert, awake. Weak. Resting on nasal canula. O2 saturation 98% on 3 litres O2.Complaining slight cough. No acute respiratory distress. Objective Vital Signs - 12hr 12/07/17 12/07/17 12/07/17 00:31 01:47 05:23 Temperature 97.3 F L 97.6 F Pulse Rate 101 H 101 H 111 H Respiratory 22 22 Rate Blood Pressure 122/73 116/74 Blood Pressure [Right] O2 Sat by Pulse 99 98 Oximetry 12/07/17 12/07/17 05:26 09:46 Temperature 98.9 F Pulse Rate 114 H 65 Respiratory 18 Rate Blood Pressure 116/74 Blood Pressure 130/75 [Right] O2 Sat by Pulse 96 Oximetry Constitutional: no acute distress, other (obese) Eyes: non-icteric ENT: oropharynx moist, other (large neck circumference) Neck: supple, no lymphadenopathy, no JVD, other (no thyromegally; mallampatti 4) Effort: normal Ascultation: Bilateral: diminished breath sounds, rhonchi (inspiratory in bases L>R) Percussion: Bilateral: not dull Cardiovascular: irregular rhythm, other (S1,S2, no murmurs, gallops or rubs) Gastrointestinal: normoactive bowel sounds, soft, non-tender, non-distended, other (No hepatoslenomegaly) Integumentary: rash (stasis dermatitis to legs) Extremities: no cyanosis, no edema, pulses normal, other (Chronic venous stasis dermatitis) Neurologic: normal mental status, non-focal exam, pupils equal and round, CN II- XII normal, motor strength normal and Psychiatric: mood appropriate, affect normal CBC and BMP: 12/07/17 04:54 12/07/17 04:54 ABG, PT/INR, D-dimer: PT/INR, D-dimer PT 19.9 Sec. (12.2-14.9) H 12/04/17 16:29 INR 1.59 (0.87-1.13) H 12/04/17 16:29 Abnormal lab findings: Abnormal Labs 12/04/17 12/04/17 12/04/17 11:27 11:27 11:27 WBC 12.1 H RBC 5.37 H Hgb 16.3 H Hct 48.7 H RDW 15.7 H Plt Count 136 L Lymph % (Auto) 6.5 L Tripp % (Auto) 14.7 H Lymph # 0.8 L Tripp # 1.8 H Seg Neutrophils % 78.3 H Lymphocytes % (Manual) Monocytes % (Manual) Eosinophils % (Manual) Seg Neutrophils # 9.5 H Seg Neutrophils # Man Lymphocytes # (Manual) Monocytes # (Manual) Eosinophils # (Manual) PT 20.5 H INR 1.65 H APTT 40.2 H VBG pH Sodium 133 L Chloride 93.9 L Carbon Dioxide 20 L BUN 79 H Creatinine 3.8 H Glucose 153 H POC Glucose Lactic Acid Calcium AST 75 H ALT 58 H Alkaline Phosphatase 142 H C-Reactive Protein Albumin 2.8 L Urine WBC (Auto) 12/04/17 12/04/17 12/04/17 11:27 11:27 11:27 WBC RBC Hgb Hct RDW Plt Count Lymph % (Auto) Tripp % (Auto) Lymph # Tripp # Seg Neutrophils % Lymphocytes % (Manual) Monocytes % (Manual) Eosinophils % (Manual) Seg Neutrophils # Seg Neutrophils # Man Lymphocytes # (Manual) Monocytes # (Manual) Eosinophils # (Manual) PT INR APTT VBG pH 7.316 L Sodium Chloride Carbon Dioxide BUN Creatinine Glucose POC Glucose Lactic Acid 2.30 H* Calcium AST ALT Alkaline Phosphatase C-Reactive Protein 12.40 H Albumin Urine WBC (Auto) 12/04/17 12/04/17 12/04/17 13:49 16:29 16:29 WBC 11.7 H RBC Hgb Hct RDW 15.9 H Plt Count 121 L Lymph % (Auto) Tripp % (Auto) Lymph # Tripp # Seg Neutrophils % Lymphocytes % (Manual) 5.0 L Monocytes % (Manual) 19.0 H Eosinophils % (Manual) Seg Neutrophils # Seg Neutrophils # Man 8.2 H Lymphocytes # (Manual) 0.6 L Monocytes # (Manual) 2.2 H Eosinophils # (Manual) PT INR APTT VBG pH Sodium Chloride Carbon Dioxide BUN Creatinine Glucose POC Glucose Lactic Acid 2.20 H* Calcium AST ALT Alkaline Phosphatase C-Reactive Protein Albumin Urine WBC (Auto) 37.0 H 12/04/17 12/04/17 12/04/17 16:29 17:22 20:49 WBC RBC Hgb Hct RDW Plt Count Lymph % (Auto) Tripp % (Auto) Lymph # Tripp # Seg Neutrophils % Lymphocytes % (Manual) Monocytes % (Manual) Eosinophils % (Manual) Seg Neutrophils # Seg Neutrophils # Man Lymphocytes # (Manual) Monocytes # (Manual) Eosinophils # (Manual) PT 19.9 H INR 1.59 H APTT 43.9 H VBG pH Sodium Chloride Carbon Dioxide 18 L BUN 70 H Creatinine 3.3 H Glucose POC Glucose Lactic Acid 2.10 H* Calcium 8.1 L AST ALT Alkaline Phosphatase C-Reactive Protein Albumin Urine WBC (Auto) 12/04/17 12/05/17 12/05/17 20:49 11:40 17:25 WBC RBC Hgb Hct RDW Plt Count Lymph % (Auto) Tripp % (Auto) Lymph # Tripp # Seg Neutrophils % Lymphocytes % (Manual) Monocytes % (Manual) Eosinophils % (Manual) Seg Neutrophils # Seg Neutrophils # Man Lymphocytes # (Manual) Monocytes # (Manual) Eosinophils # (Manual) PT INR APTT VBG pH Sodium 135 L Chloride Carbon Dioxide 15 L BUN 70 H Creatinine 3.1 H Glucose 108 H POC Glucose 169 H 313 H Lactic Acid Calcium AST ALT Alkaline Phosphatase C-Reactive Protein Albumin Urine WBC (Auto) 12/05/17 12/06/17 12/06/17 17:41 00:11 03:58 WBC RBC 5.10 H Hgb Hct 46.9 H RDW 15.9 H Plt Count 135 L Lymph % (Auto) Tripp % (Auto) Lymph # Tripp # Seg Neutrophils % Lymphocytes % (Manual) 9.0 L Monocytes % (Manual) 14.0 H Eosinophils % (Manual) Seg Neutrophils # Seg Neutrophils # Man Lymphocytes # (Manual) 0.9 L Monocytes # (Manual) 1.3 H Eosinophils # (Manual) PT INR APTT VBG pH Sodium Chloride Carbon Dioxide 20 L BUN 61 H Creatinine 2.5 H Glucose 315 H POC Glucose 277 H Lactic Acid Calcium AST ALT Alkaline Phosphatase C-Reactive Protein Albumin Urine WBC (Auto) 12/06/17 12/06/17 12/06/17 03:58 05:02 11:35 WBC RBC Hgb Hct RDW Plt Count Lymph % (Auto) Tripp % (Auto) Lymph # Tripp # Seg Neutrophils % Lymphocytes % (Manual) Monocytes % (Manual) Eosinophils % (Manual) Seg Neutrophils # Seg Neutrophils # Man Lymphocytes # (Manual) Monocytes # (Manual) Eosinophils # (Manual) PT INR APTT VBG pH Sodium Chloride Carbon Dioxide 20 L BUN 54 H Creatinine 1.9 H Glucose 243 H POC Glucose 243 H 288 H Lactic Acid Calcium AST ALT Alkaline Phosphatase C-Reactive Protein Albumin Urine WBC (Auto) 12/06/17 12/07/17 12/07/17 17:18 04:54 04:54 WBC RBC 5.46 H Hgb 16.4 H Hct 49.6 H RDW 16.1 H Plt Count Lymph % (Auto) Tripp % (Auto) Lymph # Tripp # Seg Neutrophils % Lymphocytes % (Manual) 13.0 L Monocytes % (Manual) 14.0 H Eosinophils % (Manual) 5.0 H Seg Neutrophils # Seg Neutrophils # Man Lymphocytes # (Manual) Monocytes # (Manual) 1.3 H Eosinophils # (Manual) 0.5 H PT INR APTT VBG pH Sodium 146 H Chloride 107.5 H Carbon Dioxide BUN 46 H Creatinine 1.6 H Glucose 240 H POC Glucose 275 H Lactic Acid Calcium AST ALT Alkaline Phosphatase C-Reactive Protein Albumin Urine WBC (Auto) 12/07/17 05:32 WBC RBC Hgb Hct RDW Plt Count Lymph % (Auto) Tripp % (Auto) Lymph # Tripp # Seg Neutrophils % Lymphocytes % (Manual) Monocytes % (Manual) Eosinophils % (Manual) Seg Neutrophils # Seg Neutrophils # Man Lymphocytes # (Manual) Monocytes # (Manual) Eosinophils # (Manual) PT INR APTT VBG pH Sodium Chloride Carbon Dioxide BUN Creatinine Glucose POC Glucose 223 H Lactic Acid Calcium AST ALT Alkaline Phosphatase C-Reactive Protein Albumin Urine WBC (Auto) Chest x-ray: report reviewed (No acute cardiopulmonary process.), image reviewed Allied health notes reviewed: nursing
--- NOTE | 2017-12-07 12:26 | Progress Note ---
Assessment and Plan Assessment and plan: Sepsis. Continue IV antibiotics and IV fluid hydration. Blood and urine cultures are negative. Paroxysmal Atrial fibrillation with RVR. Cardiology following. Cartia XT resume. Resume eliquis when okay with cardiology/surgeon. Acute on chronic renal failure. Creatinine continues to Improve. Etiology is multifactorial secondary to acute kidney injury from sepsis/ATN/vasomotor nephropathy/volume depletion and obstructive uropathy from ureteral stone/ stricture. Continue IV fluid hydration and follow BMP closely. Nephrology following. Obstructive uropathy/hydronephrosis. Etiology secondary to Right ureteral stone /stricture. Patient is status post cystoscopic stent placement. Diabetes mellitus type 2. Continue Accu-Cheks and sliding scale insulin. Hypertension. Resume antihypertensive medications. History Interval history: No new issues overnight. Hospitalist Physical - Constitutional Vitals: Temp Pulse Resp BP Pulse Ox 98.4 F 87 20 132/68 96 12/07/17 12:21 12/07/17 12:21 12/07/17 12:21 12/07/17 12:21 12/07/17 12:21 General appearance: Present: no acute distress - EENT Eyes: Present: PERRL, EOM intact ENT: hearing intact, clear oral mucosa, dentition normal - Neck Neck: Present: supple, normal ROM - Respiratory Respiratory effort: normal Respiratory: bilateral: CTA - Cardiovascular Rhythm: regular Heart Sounds: Present: S1 & S2. Absent: gallop, rub - Extremities Extremities: no ischemia, No edema, Full ROM - Abdominal General gastrointestinal: soft, non-tender, non-distended, normal bowel sounds - Integumentary Integumentary: Present: clear, warm, dry - Neurologic Neurologic: CNII-XII intact, moves all extremities Results - Labs CBC & Chem 7: 12/07/17 04:54 12/07/17 04:54 Labs: Laboratory Last Values WBC 9.0 K/mm3 (4.5-11.0) 12/07/17 04:54 RBC 5.46 M/mm3 (3.65-5.03) H 12/07/17 04:54 Hgb 16.4 gm/dl (11.8-15.2) H 12/07/17 04:54 Hct 49.6 % (35.5-45.6) H 12/07/17 04:54 MCV 91 fl (84-94) 12/07/17 04:54 MCH 30 pg (28-32) 12/07/17 04:54 MCHC 33 % (32-34) 12/07/17 04:54 RDW 16.1 % (13.2-15.2) H 12/07/17 04:54 Plt Count 156 K/mm3 (140-440) 12/07/17 04:54 Lymph % (Auto) 6.5 % (13.4-35.0) L 12/04/17 11:27 [place] % (Auto) Biological Engineer 12/07/17 04:54 Eos % (Auto) 0.2 % (0.0-4.3) 12/04/17 11:27 Baso % (Auto) 0.3 % (0.0-1.8) 12/04/17 11:27 Lymph # 0.8 K/mm3 (1.2-5.4) L 12/04/17 11:27 [place] # 1.8 K/mm3 (0.0-0.8) H 12/04/17 11:27 Eos # 0.0 K/mm3 (0.0-0.4) 12/04/17 11:27 Baso # 0.0 K/mm3 (0.0-0.1) 12/04/17 11:27 Add Manual Diff Complete 12/07/17 04:54 Total Counted 100 12/07/17 04:54 Seg Neutrophils % 78.3 % (40.0-70.0) H 12/04/17 11:27 Seg Neuts % (Manual) 61.0 % (40.0-70.0) 12/07/17 04:54 Band Neutrophils % 7.0 % 12/07/17 04:54 Lymphocytes % (Manual) 13.0 % (13.4-35.0) L 12/07/17 04:54 Reactive Lymphs % (Man) 0 % 12/07/17 04:54 Monocytes % (Manual) 14.0 % (0.0-7.3) H 12/07/17 04:54 Eosinophils % (Manual) 5.0 % (0.0-4.3) H 12/07/17 04:54 Basophils % (Manual) 0 % (0.0-1.8) 12/07/17 04:54 Metamyelocytes % 0 % 12/07/17 04:54 Myelocytes % 0 % 12/07/17 04:54 Promyelocytes % 0 % 12/07/17 04:54 Blast Cells % 0 % 12/07/17 04:54 Nucleated RBC % Not Reportable 12/07/17 04:54 Seg Neutrophils # 9.5 K/mm3 (1.8-7.7) H 12/04/17 11:27 Seg Neutrophils # Man 5.5 K/mm3 (1.8-7.7) 12/07/17 04:54 Band Neutrophils # 0.6 K/mm3 12/07/17 04:54 Lymphocytes # (Manual) 1.2 K/mm3 (1.2-5.4) 12/07/17 04:54 Abs React Lymphs (Man) 0.0 K/mm3 12/07/17 04:54 Monocytes # (Manual) 1.3 K/mm3 (0.0-0.8) H 12/07/17 04:54 Eosinophils # (Manual) 0.5 K/mm3 (0.0-0.4) H 12/07/17 04:54 Basophils # (Manual) 0.0 K/mm3 (0.0-0.1) 12/07/17 04:54 Metamyelocytes # 0.0 K/mm3 12/07/17 04:54 Myelocytes # 0.0 K/mm3 12/07/17 04:54 Promyelocytes # 0.0 K/mm3 12/07/17 04:54 Blast Cells # 0.0 K/mm3 12/07/17 04:54 WBC Morphology Not Reportable 12/07/17 04:54 Hypersegmented Neuts Not Reportable 12/07/17 04:54 Hyposegmented Neuts Not Reportable 12/07/17 04:54 Hypogranular Neuts Not Reportable 12/07/17 04:54 Smudge Cells Not Reportable 12/07/17 04:54 Toxic Granulation Not Reportable 12/07/17 04:54 Toxic Vacuolation Not Reportable 12/07/17 04:54 Dohle Bodies Not Reportable 12/07/17 04:54 Pelger-Huet Anomaly Not Reportable 12/07/17 04:54 Shiloh Rods Not Reportable 12/07/17 04:54 Platelet Estimate Appears normal 12/07/17 04:54 Clumped Platelets Not Reportable 12/07/17 04:54 Plt Clumps, EDTA Not Reportable 12/07/17 04:54 Large Platelets Not Reportable 12/07/17 04:54 Giant Platelets Not Reportable 12/07/17 04:54 Platelet Satelliting Not Reportable 12/07/17 04:54 Plt Morphology Comment Not Reportable 12/07/17 04:54 RBC Morphology Not Reportable 12/07/17 04:54 Dimorphic RBCs Not Reportable 12/07/17 04:54 Polychromasia Not Reportable 12/07/17 04:54 Hypochromasia Not Reportable 12/07/17 04:54 Poikilocytosis Not Reportable 12/07/17 04:54 Anisocytosis 1+ 12/07/17 04:54 Microcytosis Not Reportable 12/07/17 04:54 Macrocytosis Not Reportable 12/07/17 04:54 Spherocytes Not Reportable 12/07/17 04:54 Pappenheimer Bodies Not Reportable 12/07/17 04:54 Sickle Cells Not Reportable 12/07/17 04:54 Target Cells Not Reportable 12/07/17 04:54 Tear Drop Cells Not Reportable 12/07/17 04:54 Ovalocytes Not Reportable 12/07/17 04:54 Helmet Cells Not Reportable 12/07/17 04:54 Arellano-Gann Bodies Not Reportable 12/07/17 04:54 Wilmont Rings Not Reportable 12/07/17 04:54 Faye Cells Not Reportable 12/07/17 04:54 Bite Cells Not Reportable 12/07/17 04:54 Crenated Cell Not Reportable 12/07/17 04:54 Elliptocytes Not Reportable 12/07/17 04:54 Acanthocytes (Spur) Not Reportable 12/07/17 04:54 Rouleaux Not Reportable 12/07/17 04:54 Hemoglobin C Crystals Not Reportable 12/07/17 04:54 Schistocytes Not Reportable 12/07/17 04:54 Malaria parasites Not Reportable 12/07/17 04:54 Dharmesh Bodies Not Reportable 12/07/17 04:54 Hem Pathologist Commnt No 12/07/17 04:54 PT 19.9 Sec. (12.2-14.9) H 12/04/17 16:29 INR 1.59 (0.87-1.13) H 12/04/17 16:29 APTT 43.9 Sec. (24.2-36.6) H 12/04/17 16:29 VBG pH 7.316 (7.320-7.420) L 12/04/17 11:27 Sodium 146 mmol/L (137-145) H 12/07/17 04:54 Potassium 3.9 mmol/L (3.6-5.0) 12/07/17 04:54 Chloride 107.5 mmol/L (98-107) H 12/07/17 04:54 Carbon Dioxide 22 mmol/L (22-30) 12/07/17 04:54 Anion Gap 20 mmol/L 12/07/17 04:54 BUN 46 mg/dL (9-20) H 12/07/17 04:54 Creatinine 1.6 mg/dL (0.8-1.5) H 12/07/17 04:54 Estimated GFR 43 ml/min 12/07/17 04:54 BUN/Creatinine Ratio 29 % 12/07/17 04:54 Glucose 240 mg/dL (75-100) H 12/07/17 04:54 POC Glucose 223 (70-105) H 12/07/17 05:32 Lactic Acid 2.10 mmol/L (0.7-2.0) H* 12/04/17 20:49 Calcium 8.9 mg/dL (8.4-10.2) 12/07/17 04:54 Total Bilirubin 0.90 mg/dL (0.1-1.2) 12/04/17 11:27 AST 75 units/L (5-40) H 12/04/17 11:27 ALT 58 units/L (7-56) H 12/04/17 11:27 Alkaline Phosphatase 142 units/L (35-129) H 12/04/17 11:27 C-Reactive Protein 12.40 mg/dL (0.00-1.30) H 12/04/17 11:27 Total Protein 6.5 g/dL (6.3-8.2) 12/04/17 11:27 Albumin 2.8 g/dL (3.9-5) L 12/04/17 11:27 Albumin/Globulin Ratio 0.8 % 12/04/17 11:27 Urine Color Cammy (Yellow) 12/04/17 13:49 Urine Turbidity Clear (Clear) 12/04/17 13:49 Urine pH 5.0 (5.0-7.0) 12/04/17 13:49 Ur Specific [place] 1.010 (1.003-1.030) 12/04/17 13:49 Urine Protein 30 mg/dl mg/dL (Negative) 12/04/17 13:49 Urine Glucose (UA) >=500 mg/dL (Negative) 12/04/17 13:49 Urine Ketones Neg mg/dL (Negative) 12/04/17 13:49 Urine Blood Lg (Negative) 12/04/17 13:49 Urine Nitrite Neg (Negative) 12/04/17 13:49 Urine Bilirubin Neg (Negative) 12/04/17 13:49 Urine Urobilinogen < 2.0 mg/dL (<2.0) 12/04/17 13:49 Ur Leukocyte Esterase Tr (Negative) 12/04/17 13:49 Urine WBC (Auto) 37.0 /HPF (0.0-6.0) H 12/04/17 13:49 Urine RBC (Auto) > 182.0 /HPF (0.0-6.0) 12/04/17 13:49 U Epithel Cells (Auto) 1.0 /HPF (0-13.0) 12/04/17 13:49 Urine Bacteria (Auto) 1+ /HPF (Negative) 12/04/17 13:49 Urine Mucus Few /HPF 12/04/17 13:49
[2017-12-07] MEDS: SODIUM CHLORIDE FLUSH SYRINGE 10 ML IV SCH ×2 (12:45→22:34)
--- NOTE | 2017-12-07 13:38 | Progress Note ---
Assessment and Plan - Patient Problems (1) Atrial fibrillation Current Visit: Yes Status: Acute Qualifiers: Atrial fibrillation type: chronic Qualified Code(s): I48.2 - Chronic atrial fibrillation Plan to address problem: Continue medical therapy for rate control and oral anticoagulation depending on surgical status. Subjective Date of service: 12/07/17 Principal diagnosis: Severe Sepsis with Shock; Hydronephrosis with Obstructive Uropathy; SAUL Interval history: Patient looks and feels better, no cardiac complaints. Objective Vital Signs Temp Pulse Resp BP BP Pulse Ox 12/07/17 13:26 102 H 12/07/17 12:21 98.4 F 87 20 132/68 96 12/07/17 09:46 98.9 F 65 18 130/75 96 12/07/17 05:26 114 H 116/74 12/07/17 05:23 97.6 F 111 H 22 116/74 98 12/07/17 01:47 101 H 12/07/17 00:31 97.3 F L 101 H 22 122/73 99 12/06/17 22:00 98 12/06/17 19:52 97.8 F 102 H 20 116/62 98 12/06/17 17:31 117 H 25 H 135/77 96 12/06/17 17:21 108 H 20 135/77 97 12/06/17 17:11 106 H 27 H 135/77 96 12/06/17 17:01 103 H 27 H 135/77 94 12/06/17 16:02 107 H 135/77 12/06/17 16:01 107 H 28 H 92/47 12/06/17 15:58 108 H 19 130/87 12/06/17 14:00 113 H 27 H 130/87 96 - Physical Examination General: No Apparent Distress HEENT: Positive: PERRL Neck: Positive: neck supple Cardiac: Positive: Reg Rate and Rhythm Lungs: Positive: Decreased Breath Sounds Neuro: Positive: Grossly Intact Abdomen: Positive: Soft Skin: Positive: Clear Extremities: Absent: edema - Labs and Meds CBC 12/07/17 Range/Units 04:54 WBC 9.0 (4.5-11.0) K/mm3 RBC 5.46 H (3.65-5.03) M/mm3 Hgb 16.4 H (11.8-15.2) gm/dl Hct 49.6 H (35.5-45.6) % Plt Count 156 (140-440) K/mm3 Comprehensive Metabolic Panel 12/07/17 Range/Units 04:54 Sodium 146 H (137-145) mmol/L Potassium 3.9 (3.6-5.0) mmol/L Chloride 107.5 H (98-107) mmol/L Carbon Dioxide 22 (22-30) mmol/L BUN 46 H (9-20) mg/dL Creatinine 1.6 H (0.8-1.5) mg/dL Glucose 240 H (75-100) mg/dL Calcium 8.9 (8.4-10.2) mg/dL - Allied health notes Allied health notes reviewed: nursing
--- NOTE | 2017-12-07 13:47 | Progress Note ---
Assessment and Plan Impression: * Acute kidney injury secondary to multifactorial etiologies: sepsis related ATN vs obstructive uropathy * Right ureteral stone w/ obstruction, right hydronephrosis; s/p cystoscopy, urethrotomy and stent. * Sepsis * Atrial fibrillation w/ RVR * Chronic anticoagulation * Metabolic acidosis Plan: * Renal function improving. Continue current management * Abx per primary team * Rate control per cardiology * Urology following * Avoid nephrotoxins * Dose medications for renal function Subjective Date of service: 12/07/17 Principal diagnosis: Severe Sepsis with Shock; Hydronephrosis with Obstructive Uropathy; SAUL Interval history: Patient is comfortable today. Currently has an indwelling Sagastume in place. Urine appears to be bloody. His shortness of breath is improving. Denies any nausea or vomiting. Objective - Vital Signs Vital signs: Vital Signs - 12hr 12/07/17 12/07/17 12/07/17 01:47 05:23 05:26 Temperature 97.6 F Pulse Rate 101 H 111 H 114 H Respiratory 22 Rate Blood Pressure 116/74 116/74 Blood Pressure [Right] O2 Sat by Pulse 98 Oximetry 12/07/17 12/07/17 12/07/17 09:46 12:21 13:26 Temperature 98.9 F 98.4 F Pulse Rate 65 87 102 H Respiratory 18 20 Rate Blood Pressure Blood Pressure 130/75 132/68 [Right] O2 Sat by Pulse 96 96 Oximetry - General Appearance General appearance: well-developed, well-nourished, appears stated age, obese EENT: PERRL, mucous membranes moist Neck: no JVD, no thyromegaly, no carotid bruit, supple Respiratory: Present: Clear to Ascultation Cardiology: irregularly irregular, normal heart rate, S1S2, no murmurs Gastrointestinal: normal, normoactive bowel sounds Integumentary: other (dressing left leg . 1+ edema) - Lab 12/07/17 04:54 12/07/17 04:54 Most recent lab results Calcium 8.9 mg/dL (8.4-10.2) 12/07/17 04:54
[2017-12-07] MEDS: PRAVACHOL PO SCH (22:31)
[2017-12-07] MEDS: COLACE PO SCH (22:31)
[2017-12-07] MEDS: ZETIA PO SCH (22:31)
[2017-12-08] MEDS: CARDIZEM CD PO SCH ×2 (02:46→15:04)
[2017-12-08] MEDS: HumuLIN R SUB-Q SCH ×5 (02:47→18:00)
[2017-12-08] MEDS: LASIX PO SCH ×3 (06:28→19:17)
[2017-12-08] MEDS: HEPARIN SUB-Q SCH ×3 (06:28→21:24)
[2017-12-08 07:22] LABS: Basophils # (Auto) 0.1 K/mm3 (0.0-0.1); Basophils % (Auto) 0.6 % (0.0-1.8); Eosinophils # (Auto) 0.3 K/mm3 (0.0-0.4); Eosinophils % (Auto) 2.7 % (0.0-4.3); Hematocrit 47.5 % (35.5-45.6); Hemoglobin 15.9 gm/dl (11.8-15.2); Lymphocytes # (Auto) 1.4 K/mm3 (1.2-5.4); Lymphocytes % (Auto) 13.8 % (13.4-35.0); Mean Corpuscular HGB Conc 34 % (32-34); Mean Corpuscular Hemoglobin 31 pg (28-32); Mean Corpuscular Volume 91 fl (84-94); Monocytes # (Auto) 1.2 K/mm3 (0.0-0.8); Monocytes % (Auto) 11.7 % (0.0-7.3); Platelet Count 170 K/mm3 (140-440); Red Blood Count 5.21 M/mm3 (3.65-5.03); Red Cell Distribution Width 16.4 % (13.2-15.2)
[2017-12-08 07:47] LABS: Calcium 8.9 mg/dL (8.4-10.2)
[2017-12-08] MEDS: K-DUR PO SCH (10:16)
[2017-12-08] MEDS: COLACE PO SCH ×2 (10:16→21:24)
[2017-12-08] MEDS: FISH OIL PO SCH (10:17)
[2017-12-08] MEDS: OYSCO D 500 MG-200 UNIT PO SCH (10:18)
[2017-12-08] MEDS: SODIUM CHLORIDE FLUSH SYRINGE 10 ML IV SCH ×2 (10:19→21:25)
[2017-12-08] MEDS: THERAGRAN-M Tab PO SCH (10:20)
[2017-12-08] MEDS: VITAMIN B-12 PO SCH (10:22)
[2017-12-08] MEDS: VITAMIN C PO SCH ×2 (10:22→21:24)
[2017-12-08] MEDS: ZESTRIL PO SCH (10:23)
[2017-12-08] MEDS: ZYLOPRIM PO SCH (10:25)
[2017-12-08] MEDS: LANTUS SUB-Q SCH (10:29)
--- NOTE | 2017-12-08 11:26 | Progress Note ---
Assessment and Plan Assessment and plan: Sepsis. Continue IV antibiotics and IV fluid hydration. Blood and urine cultures are negative. Hematuria. Continue to monitor. H&H stable. Paroxysmal Atrial fibrillation with RVR. Cardiology following. Cartia XT resume. Resume eliquis when okay with cardiology/surgeon. Acute on chronic renal failure. Creatinine continues to Improve. Etiology is multifactorial secondary to acute kidney injury from sepsis/ATN/vasomotor nephropathy/volume depletion and obstructive uropathy from ureteral stone/ stricture. Continue IV fluid hydration and follow BMP closely. Nephrology following. Obstructive uropathy/hydronephrosis. Etiology secondary to Right ureteral stone /stricture. Patient is status post cystoscopic stent placement. Diabetes mellitus type 2. Continue Accu-Cheks and sliding scale insulin. Hypertension. Resume antihypertensive medications. History Interval history: No new issues overnight. Hospitalist Physical - Constitutional Vitals: Temp Pulse Resp BP Pulse Ox 97.6 F 110 H 20 122/70 96 12/08/17 04:58 12/08/17 04:58 12/08/17 04:58 12/08/17 10:23 12/08/17 04:58 General appearance: Present: no acute distress - EENT Eyes: Present: PERRL, EOM intact ENT: hearing intact, clear oral mucosa, dentition normal - Neck Neck: Present: supple, normal ROM - Respiratory Respiratory effort: normal Respiratory: bilateral: CTA - Cardiovascular Rhythm: regular Heart Sounds: Present: S1 & S2. Absent: gallop, rub - Extremities Extremities: no ischemia, No edema, Full ROM - Abdominal General gastrointestinal: soft, non-tender, non-distended, normal bowel sounds - Integumentary Integumentary: Present: clear, warm, dry - Neurologic Neurologic: CNII-XII intact, moves all extremities Results - Labs CBC & Chem 7: 12/08/17 06:45 12/08/17 06:45 Labs: Laboratory Last Values WBC 10.1 K/mm3 (4.5-11.0) 12/08/17 06:45 RBC 5.21 M/mm3 (3.65-5.03) H 12/08/17 06:45 Hgb 15.9 gm/dl (11.8-15.2) H 12/08/17 06:45 Hct 47.5 % (35.5-45.6) H 12/08/17 06:45 MCV 91 fl (84-94) 12/08/17 06:45 MCH 31 pg (28-32) 12/08/17 06:45 MCHC 34 % (32-34) 12/08/17 06:45 RDW 16.4 % (13.2-15.2) H 12/08/17 06:45 Plt Count 170 K/mm3 (140-440) 12/08/17 06:45 Lymph % (Auto) 13.8 % (13.4-35.0) 12/08/17 06:45 [place] % (Auto) 11.7 % (0.0-7.3) H 12/08/17 06:45 Eos % (Auto) 2.7 % (0.0-4.3) 12/08/17 06:45 Baso % (Auto) 0.6 % (0.0-1.8) 12/08/17 06:45 Lymph # 1.4 K/mm3 (1.2-5.4) 12/08/17 06:45 [place] # 1.2 K/mm3 (0.0-0.8) H 12/08/17 06:45 Eos # 0.3 K/mm3 (0.0-0.4) 12/08/17 06:45 Baso # 0.1 K/mm3 (0.0-0.1) 12/08/17 06:45 Add Manual Diff Complete 12/07/17 04:54 Total Counted 100 12/07/17 04:54 Seg Neutrophils % 71.2 % (40.0-70.0) H 12/08/17 06:45 Seg Neuts % (Manual) 61.0 % (40.0-70.0) 12/07/17 04:54 Band Neutrophils % 7.0 % 12/07/17 04:54 Lymphocytes % (Manual) 13.0 % (13.4-35.0) L 12/07/17 04:54 Reactive Lymphs % (Man) 0 % 12/07/17 04:54 Monocytes % (Manual) 14.0 % (0.0-7.3) H 12/07/17 04:54 Eosinophils % (Manual) 5.0 % (0.0-4.3) H 12/07/17 04:54 Basophils % (Manual) 0 % (0.0-1.8) 12/07/17 04:54 Metamyelocytes % 0 % 12/07/17 04:54 Myelocytes % 0 % 12/07/17 04:54 Promyelocytes % 0 % 12/07/17 04:54 Blast Cells % 0 % 12/07/17 04:54 Nucleated RBC % Not Reportable 12/07/17 04:54 Seg Neutrophils # 7.2 K/mm3 (1.8-7.7) 12/08/17 06:45 Seg Neutrophils # Man 5.5 K/mm3 (1.8-7.7) 12/07/17 04:54 Band Neutrophils # 0.6 K/mm3 12/07/17 04:54 Lymphocytes # (Manual) 1.2 K/mm3 (1.2-5.4) 12/07/17 04:54 Abs React Lymphs (Man) 0.0 K/mm3 12/07/17 04:54 Monocytes # (Manual) 1.3 K/mm3 (0.0-0.8) H 12/07/17 04:54 Eosinophils # (Manual) 0.5 K/mm3 (0.0-0.4) H 12/07/17 04:54 Basophils # (Manual) 0.0 K/mm3 (0.0-0.1) 12/07/17 04:54 Metamyelocytes # 0.0 K/mm3 12/07/17 04:54 Myelocytes # 0.0 K/mm3 12/07/17 04:54 Promyelocytes # 0.0 K/mm3 12/07/17 04:54 Blast Cells # 0.0 K/mm3 12/07/17 04:54 WBC Morphology Not Reportable 12/07/17 04:54 Hypersegmented Neuts Not Reportable 12/07/17 04:54 Hyposegmented Neuts Not Reportable 12/07/17 04:54 Hypogranular Neuts Not Reportable 12/07/17 04:54 Smudge Cells Not Reportable 12/07/17 04:54 Toxic Granulation Not Reportable 12/07/17 04:54 Toxic Vacuolation Not Reportable 12/07/17 04:54 Dohle Bodies Not Reportable 12/07/17 04:54 Pelger-Huet Anomaly Not Reportable 12/07/17 04:54 Shiloh Rods Not Reportable 12/07/17 04:54 Platelet Estimate Appears normal 12/07/17 04:54 Clumped Platelets Not Reportable 12/07/17 04:54 Plt Clumps, EDTA Not Reportable 12/07/17 04:54 Large Platelets Not Reportable 12/07/17 04:54 Giant Platelets Not Reportable 12/07/17 04:54 Platelet Satelliting Not Reportable 12/07/17 04:54 Plt Morphology Comment Not Reportable 12/07/17 04:54 RBC Morphology Not Reportable 12/07/17 04:54 Dimorphic RBCs Not Reportable 12/07/17 04:54 Polychromasia Not Reportable 12/07/17 04:54 Hypochromasia Not Reportable 12/07/17 04:54 Poikilocytosis Not Reportable 12/07/17 04:54 Anisocytosis 1+ 12/07/17 04:54 Microcytosis Not Reportable 12/07/17 04:54 Macrocytosis Not Reportable 12/07/17 04:54 Spherocytes Not Reportable 12/07/17 04:54 Pappenheimer Bodies Not Reportable 12/07/17 04:54 Sickle Cells Not Reportable 12/07/17 04:54 Target Cells Not Reportable 12/07/17 04:54 Tear Drop Cells Not Reportable 12/07/17 04:54 Ovalocytes Not Reportable 12/07/17 04:54 Helmet Cells Not Reportable 12/07/17 04:54 Arellano-Cheval Bodies Not Reportable 12/07/17 04:54 Reagan Rings Not Reportable 12/07/17 04:54 [place] Cells Not Reportable 12/07/17 04:54 Bite Cells Not Reportable 12/07/17 04:54 Crenated Cell Not Reportable 12/07/17 04:54 Elliptocytes Not Reportable 12/07/17 04:54 Acanthocytes (Spur) Not Reportable 12/07/17 04:54 Rouleaux Not Reportable 12/07/17 04:54 Hemoglobin C Crystals Not Reportable 12/07/17 04:54 Schistocytes Not Reportable 12/07/17 04:54 Malaria parasites Not Reportable 12/07/17 04:54 Dharmesh Bodies Not Reportable 12/07/17 04:54 Hem Pathologist Commnt No 12/07/17 04:54 PT 19.9 Sec. (12.2-14.9) H 12/04/17 16:29 INR 1.59 (0.87-1.13) H 12/04/17 16:29 APTT 43.9 Sec. (24.2-36.6) H 12/04/17 16:29 VBG pH 7.316 (7.320-7.420) L 12/04/17 11:27 Sodium 141 mmol/L (137-145) 12/08/17 06:45 Potassium 3.8 mmol/L (3.6-5.0) 12/08/17 06:45 Chloride 103.7 mmol/L (98-107) 12/08/17 06:45 Carbon Dioxide 22 mmol/L (22-30) 12/08/17 06:45 Anion Gap 19 mmol/L 12/08/17 06:45 BUN 43 mg/dL (9-20) H 12/08/17 06:45 Creatinine 1.5 mg/dL (0.8-1.5) 12/08/17 06:45 Estimated GFR 46 ml/min 12/08/17 06:45 BUN/Creatinine Ratio 29 % 12/08/17 06:45 Glucose 233 mg/dL (75-100) H 12/08/17 06:45 POC Glucose 193 (70-105) H 12/08/17 04:31 Lactic Acid 2.10 mmol/L (0.7-2.0) H* 12/04/17 20:49 Calcium 8.9 mg/dL (8.4-10.2) 12/08/17 06:45 Total Bilirubin 0.90 mg/dL (0.1-1.2) 12/04/17 11:27 AST 75 units/L (5-40) H 12/04/17 11:27 ALT 58 units/L (7-56) H 12/04/17 11:27 Alkaline Phosphatase 142 units/L (35-129) H 12/04/17 11:27 C-Reactive Protein 12.40 mg/dL (0.00-1.30) H 12/04/17 11:27 Total Protein 6.5 g/dL (6.3-8.2) 12/04/17 11:27 Albumin 2.8 g/dL (3.9-5) L 12/04/17 11:27 Albumin/Globulin Ratio 0.8 % 12/04/17 11:27 Urine Color Cammy (Yellow) 12/04/17 13:49 Urine Turbidity Clear (Clear) 12/04/17 13:49 Urine pH 5.0 (5.0-7.0) 12/04/17 13:49 Ur Specific [place] 1.010 (1.003-1.030) 12/04/17 13:49 Urine Protein 30 mg/dl mg/dL (Negative) 12/04/17 13:49 Urine Glucose (UA) >=500 mg/dL (Negative) 12/04/17 13:49 Urine Ketones Neg mg/dL (Negative) 12/04/17 13:49 Urine Blood Lg (Negative) 12/04/17 13:49 Urine Nitrite Neg (Negative) 12/04/17 13:49 Urine Bilirubin Neg (Negative) 12/04/17 13:49 Urine Urobilinogen < 2.0 mg/dL (<2.0) 12/04/17 13:49 Ur Leukocyte Esterase Tr (Negative) 12/04/17 13:49 Urine WBC (Auto) 37.0 /HPF (0.0-6.0) H 12/04/17 13:49 Urine RBC (Auto) > 182.0 /HPF (0.0-6.0) 12/04/17 13:49 U Epithel Cells (Auto) 1.0 /HPF (0-13.0) 12/04/17 13:49 Urine Bacteria (Auto) 1+ /HPF (Negative) 12/04/17 13:49 Urine Mucus Few /HPF 12/04/17 13:49
--- NOTE | 2017-12-08 11:58 | Progress Note ---
Assessment and Plan atient alert, awake. Weak. Resting on nasal canula. O2 saturation 94% on 3 litres O2.Complaining slight cough. No acute respiratory distress.Says not sleeping well with BIPAP Recommend to switch to CPAP 16 cm H2O pressure as he is using at home. - Patient Problems (1) Metabolic acidosis Current Visit: Yes Status: Acute Plan to address problem: Obtaining ABGs ABGs still pending. (2) Acute on chronic renal failure Current Visit: Yes Status: Acute Qualifiers: Acute renal failure type: with acute tubular necrosis Plan to address problem: Management as per nephrology. (3) Atrial fibrillation Current Visit: Yes Status: Acute Qualifiers: Atrial fibrillation type: chronic Qualified Code(s): I48.2 - Chronic atrial fibrillation Plan to address problem: Management as per primary and cardiology. (4) Diabetes Current Visit: Yes Status: Acute Plan to address problem: Management as per primary care. (5) Morbid (severe) obesity due to excess calories Current Visit: Yes Status: Acute Plan to address problem: Weight reduction diet. (6) Tobacco use Current Visit: Yes Status: Acute Plan to address problem: History of tobacco use 40 years. Stopped smoking 8 years ago. Recommend PFTs as out patient. (7) Sleep apnea with use of continuous positive airway pressure (CPAP) Current Visit: Yes Status: Acute Plan to address problem: Recommend to switch to CPAP 16 cm H20 as he is using at home. Subjective Date of service: 12/08/17 Principal diagnosis: Severe Sepsis with Shock; Hydronephrosis with Obstructive Uropathy; SAUL Interval history: Patient alert, awake. Weak. Resting on nasal canula. O2 saturation 94% on 3 litres O2.Complaining slight cough. No acute respiratory distress.Says not sleeping well with BIPAP Recommend to switch to CPAP 16 cm H2O pressure as he is using at home. Objective Vital Signs - 12hr 12/08/17 12/08/17 12/08/17 00:25 01:20 02:46 Temperature 98.6 F Pulse Rate 103 H 103 H 103 H Respiratory 20 Rate Blood Pressure 127/75 Blood Pressure 127/75 [Right] O2 Sat by Pulse 98 Oximetry 12/08/17 12/08/17 04:58 10:23 Temperature 97.6 F Pulse Rate 110 H Respiratory 20 Rate Blood Pressure 122/70 Blood Pressure 121/69 [Right] O2 Sat by Pulse 96 Oximetry Constitutional: no acute distress, other (obese) Eyes: non-icteric ENT: oropharynx moist, other (large neck circumference) Neck: supple, no lymphadenopathy, no JVD, other (no thyromegally; mallampatti 4) Effort: normal Ascultation: Bilateral: diminished breath sounds, rhonchi (inspiratory in bases L>R) Percussion: Bilateral: not dull Cardiovascular: irregular rhythm, other (S1,S2, no murmurs, gallops or rubs) Gastrointestinal: normoactive bowel sounds, soft, non-tender, non-distended, other (No hepatoslenomegaly) Integumentary: rash (stasis dermatitis to legs) Extremities: no cyanosis, no edema, pulses normal, other (Chronic venous stasis dermatitis) Neurologic: normal mental status, non-focal exam, pupils equal and round, CN II- XII normal, motor strength normal and Psychiatric: mood appropriate, affect normal CBC and BMP: 12/08/17 06:45 12/08/17 06:45 ABG, PT/INR, D-dimer: PT/INR, D-dimer PT 19.9 Sec. (12.2-14.9) H 12/04/17 16:29 INR 1.59 (0.87-1.13) H 12/04/17 16:29 Abnormal lab findings: Abnormal Labs 12/04/17 12/04/17 12/04/17 11:27 11:27 11:27 WBC 12.1 H RBC 5.37 H Hgb 16.3 H Hct 48.7 H RDW 15.7 H Plt Count 136 L Lymph % (Auto) 6.5 L Rich % (Auto) 14.7 H Lymph # 0.8 L Rich # 1.8 H Seg Neutrophils % 78.3 H Lymphocytes % (Manual) Monocytes % (Manual) Eosinophils % (Manual) Seg Neutrophils # 9.5 H Seg Neutrophils # Man Lymphocytes # (Manual) Monocytes # (Manual) Eosinophils # (Manual) PT 20.5 H INR 1.65 H APTT 40.2 H VBG pH Sodium 133 L Chloride 93.9 L Carbon Dioxide 20 L BUN 79 H Creatinine 3.8 H Glucose 153 H POC Glucose Lactic Acid Calcium AST 75 H ALT 58 H Alkaline Phosphatase 142 H C-Reactive Protein Albumin 2.8 L Urine WBC (Auto) 12/04/17 12/04/17 12/04/17 11:27 11:27 11:27 WBC RBC Hgb Hct RDW Plt Count Lymph % (Auto) Rich % (Auto) Lymph # Rich # Seg Neutrophils % Lymphocytes % (Manual) Monocytes % (Manual) Eosinophils % (Manual) Seg Neutrophils # Seg Neutrophils # Man Lymphocytes # (Manual) Monocytes # (Manual) Eosinophils # (Manual) PT INR APTT VBG pH 7.316 L Sodium Chloride Carbon Dioxide BUN Creatinine Glucose POC Glucose Lactic Acid 2.30 H* Calcium AST ALT Alkaline Phosphatase C-Reactive Protein 12.40 H Albumin Urine WBC (Auto) 12/04/17 12/04/17 12/04/17 13:49 16:29 16:29 WBC 11.7 H RBC Hgb Hct RDW 15.9 H Plt Count 121 L Lymph % (Auto) Rich % (Auto) Lymph # Rich # Seg Neutrophils % Lymphocytes % (Manual) 5.0 L Monocytes % (Manual) 19.0 H Eosinophils % (Manual) Seg Neutrophils # Seg Neutrophils # Man 8.2 H Lymphocytes # (Manual) 0.6 L Monocytes # (Manual) 2.2 H Eosinophils # (Manual) PT INR APTT VBG pH Sodium Chloride Carbon Dioxide BUN Creatinine Glucose POC Glucose Lactic Acid 2.20 H* Calcium AST ALT Alkaline Phosphatase C-Reactive Protein Albumin Urine WBC (Auto) 37.0 H 12/04/17 12/04/17 12/04/17 16:29 17:22 20:49 WBC RBC Hgb Hct RDW Plt Count Lymph % (Auto) Rich % (Auto) Lymph # Rich # Seg Neutrophils % Lymphocytes % (Manual) Monocytes % (Manual) Eosinophils % (Manual) Seg Neutrophils # Seg Neutrophils # Man Lymphocytes # (Manual) Monocytes # (Manual) Eosinophils # (Manual) PT 19.9 H INR 1.59 H APTT 43.9 H VBG pH Sodium Chloride Carbon Dioxide 18 L BUN 70 H Creatinine 3.3 H Glucose POC Glucose Lactic Acid 2.10 H* Calcium 8.1 L AST ALT Alkaline Phosphatase C-Reactive Protein Albumin Urine WBC (Auto) 12/04/17 12/05/17 12/05/17 20:49 11:40 17:25 WBC RBC Hgb Hct RDW Plt Count Lymph % (Auto) Rich % (Auto) Lymph # Rich # Seg Neutrophils % Lymphocytes % (Manual) Monocytes % (Manual) Eosinophils % (Manual) Seg Neutrophils # Seg Neutrophils # Man Lymphocytes # (Manual) Monocytes # (Manual) Eosinophils # (Manual) PT INR APTT VBG pH Sodium 135 L Chloride Carbon Dioxide 15 L BUN 70 H Creatinine 3.1 H Glucose 108 H POC Glucose 169 H 313 H Lactic Acid Calcium AST ALT Alkaline Phosphatase C-Reactive Protein Albumin Urine WBC (Auto) 12/05/17 12/06/17 12/06/17 17:41 00:11 03:58 WBC RBC 5.10 H Hgb Hct 46.9 H RDW 15.9 H Plt Count 135 L Lymph % (Auto) Rich % (Auto) Lymph # Rich # Seg Neutrophils % Lymphocytes % (Manual) 9.0 L Monocytes % (Manual) 14.0 H Eosinophils % (Manual) Seg Neutrophils # Seg Neutrophils # Man Lymphocytes # (Manual) 0.9 L Monocytes # (Manual) 1.3 H Eosinophils # (Manual) PT INR APTT VBG pH Sodium Chloride Carbon Dioxide 20 L BUN 61 H Creatinine 2.5 H Glucose 315 H POC Glucose 277 H Lactic Acid Calcium AST ALT Alkaline Phosphatase C-Reactive Protein Albumin Urine WBC (Auto) 12/06/17 12/06/17 12/06/17 03:58 05:02 11:35 WBC RBC Hgb Hct RDW Plt Count Lymph % (Auto) Rich % (Auto) Lymph # Rich # Seg Neutrophils % Lymphocytes % (Manual) Monocytes % (Manual) Eosinophils % (Manual) Seg Neutrophils # Seg Neutrophils # Man Lymphocytes # (Manual) Monocytes # (Manual) Eosinophils # (Manual) PT INR APTT VBG pH Sodium Chloride Carbon Dioxide 20 L BUN 54 H Creatinine 1.9 H Glucose 243 H POC Glucose 243 H 288 H Lactic Acid Calcium AST ALT Alkaline Phosphatase C-Reactive Protein Albumin Urine WBC (Auto) 12/06/17 12/07/17 12/07/17 17:18 04:54 04:54 WBC RBC 5.46 H Hgb 16.4 H Hct 49.6 H RDW 16.1 H Plt Count Lymph % (Auto) Rich % (Auto) Lymph # Rich # Seg Neutrophils % Lymphocytes % (Manual) 13.0 L Monocytes % (Manual) 14.0 H Eosinophils % (Manual) 5.0 H Seg Neutrophils # Seg Neutrophils # Man Lymphocytes # (Manual) Monocytes # (Manual) 1.3 H Eosinophils # (Manual) 0.5 H PT INR APTT VBG pH Sodium 146 H Chloride 107.5 H Carbon Dioxide BUN 46 H Creatinine 1.6 H Glucose 240 H POC Glucose 275 H Lactic Acid Calcium AST ALT Alkaline Phosphatase C-Reactive Protein Albumin Urine WBC (Auto) 12/07/17 12/07/17 12/08/17 05:32 23:57 04:31 WBC RBC Hgb Hct RDW Plt Count Lymph % (Auto) Rich % (Auto) Lymph # Rich # Seg Neutrophils % Lymphocytes % (Manual) Monocytes % (Manual) Eosinophils % (Manual) Seg Neutrophils # Seg Neutrophils # Man Lymphocytes # (Manual) Monocytes # (Manual) Eosinophils # (Manual) PT INR APTT VBG pH Sodium Chloride Carbon Dioxide BUN Creatinine Glucose POC Glucose 223 H 143 H 193 H Lactic Acid Calcium AST ALT Alkaline Phosphatase C-Reactive Protein Albumin Urine WBC (Auto) 12/08/17 12/08/17 06:45 06:45 WBC RBC 5.21 H Hgb 15.9 H Hct 47.5 H RDW 16.4 H Plt Count Lymph % (Auto) Rich % (Auto) 11.7 H Lymph # Rich # 1.2 H Seg Neutrophils % 71.2 H Lymphocytes % (Manual) Monocytes % (Manual) Eosinophils % (Manual) Seg Neutrophils # Seg Neutrophils # Man Lymphocytes # (Manual) Monocytes # (Manual) Eosinophils # (Manual) PT INR APTT VBG pH Sodium Chloride Carbon Dioxide BUN 43 H Creatinine Glucose 233 H POC Glucose Lactic Acid Calcium AST ALT Alkaline Phosphatase C-Reactive Protein Albumin Urine WBC (Auto) Allied health notes reviewed: nursing
--- NOTE | 2017-12-08 13:27 | Progress Note ---
Assessment and Plan - Patient Problems (1) Atrial fibrillation Current Visit: Yes Status: Acute Qualifiers: Atrial fibrillation type: chronic Qualified Code(s): I48.2 - Chronic atrial fibrillation Plan to address problem: Continue medical therapy for rate control and oral anticoagulation depending on surgical status. Subjective Date of service: 12/08/17 Principal diagnosis: Severe Sepsis with Shock; Hydronephrosis with Obstructive Uropathy; SAUL Interval history: Patient looks and feels better, no cardiac complaints. Objective Vital Signs Temp Pulse Resp BP BP Pulse Ox 12/08/17 12:39 98.6 F 107 H 18 127/69 94 12/08/17 10:23 122/70 12/08/17 04:58 97.6 F 110 H 20 121/69 96 12/08/17 02:46 103 H 127/75 12/08/17 01:20 103 H 12/08/17 00:25 98.6 F 103 H 20 127/75 98 12/07/17 23:35 109 H 22 98 12/07/17 22:00 94 12/07/17 19:54 98.6 F 103 H 18 127/72 97 12/07/17 17:20 98.2 F 108 H 20 114/67 97 - Physical Examination General: No Apparent Distress HEENT: Positive: PERRL Neck: Positive: neck supple Cardiac: Positive: Reg Rate and Rhythm Lungs: Positive: Decreased Breath Sounds Neuro: Positive: Grossly Intact Abdomen: Positive: Soft Skin: Positive: Clear Extremities: Absent: edema - Labs and Meds CBC 12/08/17 Range/Units 06:45 WBC 10.1 (4.5-11.0) K/mm3 RBC 5.21 H (3.65-5.03) M/mm3 Hgb 15.9 H (11.8-15.2) gm/dl Hct 47.5 H (35.5-45.6) % Plt Count 170 (140-440) K/mm3 Lymph # 1.4 (1.2-5.4) K/mm3 [place] # 1.2 H (0.0-0.8) K/mm3 Eos # 0.3 (0.0-0.4) K/mm3 Baso # 0.1 (0.0-0.1) K/mm3 Comprehensive Metabolic Panel 12/08/17 Range/Units 06:45 Sodium 141 (137-145) mmol/L Potassium 3.8 (3.6-5.0) mmol/L Chloride 103.7 (98-107) mmol/L Carbon Dioxide 22 (22-30) mmol/L BUN 43 H (9-20) mg/dL Creatinine 1.5 (0.8-1.5) mg/dL Glucose 233 H (75-100) mg/dL Calcium 8.9 (8.4-10.2) mg/dL - Allied health notes Allied health notes reviewed: nursing
--- NOTE | 2017-12-08 13:34 | Progress Note ---
Assessment and Plan Impression: * Acute kidney injury secondary to multifactorial etiologies: sepsis related ATN vs obstructive uropathy * Right ureteral stone w/ obstruction, right hydronephrosis; s/p cystoscopy, urethrotomy and stent. * Sepsis * Atrial fibrillation w/ RVR * Chronic anticoagulation * Metabolic acidosis Plan: * Renal function improving. Continue current management * Abx per primary team * Rate control per cardiology * Urology following * Avoid nephrotoxins * Dose medications for renal function Subjective Date of service: 12/08/17 Principal diagnosis: Severe Sepsis with Shock; Hydronephrosis with Obstructive Uropathy; SAUL Interval history: Patient is comfortable this morning. Shortness of breath is improved. He has a indwelling Sagastume catheter in place. Objective - Vital Signs Vital signs: Vital Signs - 12hr 12/08/17 12/08/17 12/08/17 02:46 04:58 10:23 Temperature 97.6 F Pulse Rate 103 H 110 H Respiratory 20 Rate Blood Pressure 127/75 122/70 Blood Pressure 121/69 [Right] O2 Sat by Pulse 96 Oximetry 12/08/17 12:39 Temperature 98.6 F Pulse Rate 107 H Respiratory 18 Rate Blood Pressure Blood Pressure 127/69 [Right] O2 Sat by Pulse 94 Oximetry - General Appearance General appearance: well-developed, well-nourished, appears stated age EENT: PERRL, mucous membranes moist Neck: no JVD, no thyromegaly, no carotid bruit, supple Respiratory: Present: Clear to Ascultation Cardiology: regular, normal heart rate, S1S2, no murmurs Gastrointestinal: normal, normoactive bowel sounds Integumentary: other (1+ edema . Left leg wrapped with bandage ) - Lab 12/08/17 06:45 12/08/17 06:45 Most recent lab results Calcium 8.9 mg/dL (8.4-10.2) 12/08/17 06:45
[2017-12-08] MEDS: ZETIA PO SCH (21:24)
[2017-12-08] MEDS: PRAVACHOL PO SCH (21:24)
[2017-12-09] MEDS: HumuLIN R SUB-Q SCH ×4 (00:08→19:00)
[2017-12-09] MEDS: CARDIZEM CD PO SCH ×2 (02:37→19:48)
[2017-12-09 05:42] LABS: Basophils % (Auto) 0.4 % (0.0-1.8); Eosinophils # (Auto) 0.3 K/mm3 (0.0-0.4); Eosinophils % (Auto) 3.4 % (0.0-4.3); Hematocrit 44.9 % (35.5-45.6); Hemoglobin 15.3 gm/dl (11.8-15.2); Lymphocytes # (Auto) 1.5 K/mm3 (1.2-5.4); Lymphocytes % (Auto) 16.3 % (13.4-35.0); Mean Corpuscular HGB Conc 34 % (32-34); Mean Corpuscular Hemoglobin 31 pg (28-32); Mean Corpuscular Volume 90 fl (84-94); Monocytes % (Auto) 11.5 % (0.0-7.3); Platelet Count 176 K/mm3 (140-440); Red Blood Count 4.99 M/mm3 (3.65-5.03)
[2017-12-09] MEDS: LASIX PO SCH ×2 (05:42→19:00)
[2017-12-09] MEDS: HEPARIN SUB-Q SCH ×3 (05:42→22:00)
[2017-12-09 06:05] LABS: Calcium 8.5 mg/dL (8.4-10.2)
[2017-12-09] MEDS: LANTUS SUB-Q SCH (10:30)
--- NOTE | 2017-12-09 11:25 | Progress Note ---
Assessment and Plan Assessment and plan: Sepsis. Continue IV antibiotics and IV fluid hydration. Blood and urine cultures are negative. Hematuria. Continue to monitor. H&H stable. Paroxysmal Atrial fibrillation with RVR. Cardiology following. Cartia XT resume. Resume eliquis when okay with cardiology/surgeon. Acute on chronic renal failure. Creatinine continues to Improve. Etiology is multifactorial secondary to acute kidney injury from sepsis/ATN/vasomotor nephropathy/volume depletion and obstructive uropathy from ureteral stone/ stricture. Continue IV fluid hydration and follow BMP closely. Nephrology following. Obstructive uropathy/hydronephrosis. Etiology secondary to Right ureteral stone /stricture. Patient is status post cystoscopic stent placement. Diabetes mellitus type 2. Continue Accu-Cheks and sliding scale insulin. Hypertension. Resume antihypertensive medications. History Interval history: No new issues overnight. Hospitalist Physical - Constitutional Vitals: Temp Pulse Resp BP Pulse Ox 97.6 F 87 20 124/75 94 12/09/17 08:40 12/09/17 09:04 12/09/17 08:40 12/09/17 08:40 12/09/17 08:40 General appearance: Present: no acute distress - EENT Eyes: Present: PERRL, EOM intact ENT: hearing intact, clear oral mucosa, dentition normal - Neck Neck: Present: supple, normal ROM - Respiratory Respiratory effort: normal Respiratory: bilateral: CTA - Cardiovascular Rhythm: regular Heart Sounds: Present: S1 & S2. Absent: gallop, rub - Extremities Extremities: no ischemia, No edema, Full ROM - Abdominal General gastrointestinal: soft, non-tender, non-distended, normal bowel sounds - Integumentary Integumentary: Present: clear, warm, dry - Neurologic Neurologic: CNII-XII intact, moves all extremities Results - Labs CBC & Chem 7: 12/09/17 04:50 12/09/17 04:50 Labs: Laboratory Last Values WBC 9.1 K/mm3 (4.5-11.0) 12/09/17 04:50 RBC 4.99 M/mm3 (3.65-5.03) 12/09/17 04:50 Hgb 15.3 gm/dl (11.8-15.2) H 12/09/17 04:50 Hct 44.9 % (35.5-45.6) 12/09/17 04:50 MCV 90 fl (84-94) 12/09/17 04:50 MCH 31 pg (28-32) 12/09/17 04:50 MCHC 34 % (32-34) 12/09/17 04:50 RDW 16.0 % (13.2-15.2) H 12/09/17 04:50 Plt Count 176 K/mm3 (140-440) 12/09/17 04:50 Lymph % (Auto) 16.3 % (13.4-35.0) 12/09/17 04:50 [place] % (Auto) 11.5 % (0.0-7.3) H 12/09/17 04:50 Eos % (Auto) 3.4 % (0.0-4.3) 12/09/17 04:50 Baso % (Auto) 0.4 % (0.0-1.8) 12/09/17 04:50 Lymph # 1.5 K/mm3 (1.2-5.4) 12/09/17 04:50 [place] # 1.0 K/mm3 (0.0-0.8) H 12/09/17 04:50 Eos # 0.3 K/mm3 (0.0-0.4) 12/09/17 04:50 Baso # 0.0 K/mm3 (0.0-0.1) 12/09/17 04:50 Add Manual Diff Complete 12/07/17 04:54 Total Counted 100 12/07/17 04:54 Seg Neutrophils % 68.4 % (40.0-70.0) 12/09/17 04:50 Seg Neuts % (Manual) 61.0 % (40.0-70.0) 12/07/17 04:54 Band Neutrophils % 7.0 % 12/07/17 04:54 Lymphocytes % (Manual) 13.0 % (13.4-35.0) L 12/07/17 04:54 Reactive Lymphs % (Man) 0 % 12/07/17 04:54 Monocytes % (Manual) 14.0 % (0.0-7.3) H 12/07/17 04:54 Eosinophils % (Manual) 5.0 % (0.0-4.3) H 12/07/17 04:54 Basophils % (Manual) 0 % (0.0-1.8) 12/07/17 04:54 Metamyelocytes % 0 % 12/07/17 04:54 Myelocytes % 0 % 12/07/17 04:54 Promyelocytes % 0 % 12/07/17 04:54 Blast Cells % 0 % 12/07/17 04:54 Nucleated RBC % Not Reportable 12/07/17 04:54 Seg Neutrophils # 6.2 K/mm3 (1.8-7.7) 12/09/17 04:50 Seg Neutrophils # Man 5.5 K/mm3 (1.8-7.7) 12/07/17 04:54 Band Neutrophils # 0.6 K/mm3 12/07/17 04:54 Lymphocytes # (Manual) 1.2 K/mm3 (1.2-5.4) 12/07/17 04:54 Abs React Lymphs (Man) 0.0 K/mm3 12/07/17 04:54 Monocytes # (Manual) 1.3 K/mm3 (0.0-0.8) H 12/07/17 04:54 Eosinophils # (Manual) 0.5 K/mm3 (0.0-0.4) H 12/07/17 04:54 Basophils # (Manual) 0.0 K/mm3 (0.0-0.1) 12/07/17 04:54 Metamyelocytes # 0.0 K/mm3 12/07/17 04:54 Myelocytes # 0.0 K/mm3 12/07/17 04:54 Promyelocytes # 0.0 K/mm3 12/07/17 04:54 Blast Cells # 0.0 K/mm3 12/07/17 04:54 WBC Morphology Not Reportable 12/07/17 04:54 Hypersegmented Neuts Not Reportable 12/07/17 04:54 Hyposegmented Neuts Not Reportable 12/07/17 04:54 Hypogranular Neuts Not Reportable 12/07/17 04:54 Smudge Cells Not Reportable 12/07/17 04:54 Toxic Granulation Not Reportable 12/07/17 04:54 Toxic Vacuolation Not Reportable 12/07/17 04:54 Dohle Bodies Not Reportable 12/07/17 04:54 Pelger-Huet Anomaly Not Reportable 12/07/17 04:54 Shiloh Rods Not Reportable 12/07/17 04:54 Platelet Estimate Appears normal 12/07/17 04:54 Clumped Platelets Not Reportable 12/07/17 04:54 Plt Clumps, EDTA Not Reportable 12/07/17 04:54 Large Platelets Not Reportable 12/07/17 04:54 Giant Platelets Not Reportable 12/07/17 04:54 Platelet Satelliting Not Reportable 12/07/17 04:54 Plt Morphology Comment Not Reportable 12/07/17 04:54 RBC Morphology Not Reportable 12/07/17 04:54 Dimorphic RBCs Not Reportable 12/07/17 04:54 Polychromasia Not Reportable 12/07/17 04:54 Hypochromasia Not Reportable 12/07/17 04:54 Poikilocytosis Not Reportable 12/07/17 04:54 Anisocytosis 1+ 12/07/17 04:54 Microcytosis Not Reportable 12/07/17 04:54 Macrocytosis Not Reportable 12/07/17 04:54 Spherocytes Not Reportable 12/07/17 04:54 Pappenheimer Bodies Not Reportable 12/07/17 04:54 Sickle Cells Not Reportable 12/07/17 04:54 Target Cells Not Reportable 12/07/17 04:54 Tear Drop Cells Not Reportable 12/07/17 04:54 Ovalocytes Not Reportable 12/07/17 04:54 Helmet Cells Not Reportable 12/07/17 04:54 Arellano-Spickard Bodies Not Reportable 12/07/17 04:54 [place] Rings Not Reportable 12/07/17 04:54 Faye Cells Not Reportable 12/07/17 04:54 Bite Cells Not Reportable 12/07/17 04:54 Crenated Cell Not Reportable 12/07/17 04:54 Elliptocytes Not Reportable 12/07/17 04:54 Acanthocytes (Spur) Not Reportable 12/07/17 04:54 Rouleaux Not Reportable 12/07/17 04:54 Hemoglobin C Crystals Not Reportable 12/07/17 04:54 Schistocytes Not Reportable 12/07/17 04:54 Malaria parasites Not Reportable 12/07/17 04:54 Dharmesh Bodies Not Reportable 12/07/17 04:54 Hem Pathologist Commnt No 12/07/17 04:54 PT 19.9 Sec. (12.2-14.9) H 12/04/17 16:29 INR 1.59 (0.87-1.13) H 12/04/17 16:29 APTT 43.9 Sec. (24.2-36.6) H 12/04/17 16:29 VBG pH 7.316 (7.320-7.420) L 12/04/17 11:27 Sodium 139 mmol/L (137-145) 12/09/17 04:50 Potassium 3.4 mmol/L (3.6-5.0) L 12/09/17 04:50 Chloride 100.9 mmol/L (98-107) 12/09/17 04:50 Carbon Dioxide 22 mmol/L (22-30) 12/09/17 04:50 Anion Gap 20 mmol/L 12/09/17 04:50 BUN 41 mg/dL (9-20) H 12/09/17 04:50 Creatinine 1.4 mg/dL (0.8-1.5) 12/09/17 04:50 Estimated GFR 50 ml/min 12/09/17 04:50 BUN/Creatinine Ratio 29 % 12/09/17 04:50 Glucose 246 mg/dL (75-100) H 12/09/17 04:50 POC Glucose 204 (70-105) H 12/09/17 06:41 Lactic Acid 2.10 mmol/L (0.7-2.0) H* 12/04/17 20:49 Calcium 8.5 mg/dL (8.4-10.2) 12/09/17 04:50 Total Bilirubin 0.90 mg/dL (0.1-1.2) 12/04/17 11:27 AST 75 units/L (5-40) H 12/04/17 11:27 ALT 58 units/L (7-56) H 12/04/17 11:27 Alkaline Phosphatase 142 units/L (35-129) H 12/04/17 11:27 C-Reactive Protein 12.40 mg/dL (0.00-1.30) H 12/04/17 11:27 Total Protein 6.5 g/dL (6.3-8.2) 12/04/17 11:27 Albumin 2.8 g/dL (3.9-5) L 12/04/17 11:27 Albumin/Globulin Ratio 0.8 % 12/04/17 11:27 Urine Color Cammy (Yellow) 12/04/17 13:49 Urine Turbidity Clear (Clear) 12/04/17 13:49 Urine pH 5.0 (5.0-7.0) 12/04/17 13:49 Ur Specific [place] 1.010 (1.003-1.030) 12/04/17 13:49 Urine Protein 30 mg/dl mg/dL (Negative) 12/04/17 13:49 Urine Glucose (UA) >=500 mg/dL (Negative) 12/04/17 13:49 Urine Ketones Neg mg/dL (Negative) 12/04/17 13:49 Urine Blood Lg (Negative) 12/04/17 13:49 Urine Nitrite Neg (Negative) 12/04/17 13:49 Urine Bilirubin Neg (Negative) 12/04/17 13:49 Urine Urobilinogen < 2.0 mg/dL (<2.0) 12/04/17 13:49 Ur Leukocyte Esterase Tr (Negative) 12/04/17 13:49 Urine WBC (Auto) 37.0 /HPF (0.0-6.0) H 12/04/17 13:49 Urine RBC (Auto) > 182.0 /HPF (0.0-6.0) 12/04/17 13:49 U Epithel Cells (Auto) 1.0 /HPF (0-13.0) 12/04/17 13:49 Urine Bacteria (Auto) 1+ /HPF (Negative) 12/04/17 13:49 Urine Mucus Few /HPF 12/04/17 13:49
--- NOTE | 2017-12-09 11:31 | Progress Note ---
Assessment and Plan Impression: * Acute kidney injury secondary to multifactorial etiologies: sepsis related ATN vs obstructive uropathy * Right ureteral stone w/ obstruction, right hydronephrosis; s/p cystoscopy, urethrotomy and stent. * Sepsis * Atrial fibrillation w/ RVR * Chronic anticoagulation * Metabolic acidosis Plan: * Renal function improving. Continue current management * Abx per primary team * Rate control per cardiology * Urology following * Avoid nephrotoxins * Dose medications for renal function * ok to dc from renal standpoint Subjective Date of service: 12/09/17 Principal diagnosis: Severe Sepsis with Shock; Hydronephrosis with Obstructive Uropathy; SAUL Interval history: resting well in bed today Objective - Exam Narrative Exam: General appearance: well-developed, well-nourished, appears stated age EENT: PERRL, mucous membranes moist Neck: no JVD, no thyromegaly, no carotid bruit, supple Respiratory: Present: Clear to Ascultation Cardiology: regular, normal heart rate, S1S2, no murmurs Gastrointestinal: normal, normoactive bowel sounds Integumentary: other (1+ edema . Left leg wrapped with bandage ) - Vital Signs Vital signs: Vital Signs - 12hr 12/08/17 12/09/17 12/09/17 23:52 04:31 07:51 Temperature 98.1 F 97.5 F L 97.6 F Pulse Rate 90 100 H 100 H Respiratory 20 20 20 Rate Blood Pressure 123/78 106/74 124/75 Blood Pressure [Right] O2 Sat by Pulse 96 95 94 Oximetry 12/09/17 12/09/17 08:40 09:04 Temperature 97.6 F Pulse Rate 99 H 87 Respiratory 20 Rate Blood Pressure Blood Pressure 124/75 [Right] O2 Sat by Pulse 94 Oximetry - Lab 12/09/17 04:50 12/09/17 04:50 Most recent lab results Calcium 8.5 mg/dL (8.4-10.2) 12/09/17 04:50
[2017-12-09] MEDS: ZESTRIL PO SCH (13:03)
[2017-12-09] MEDS: VITAMIN B-12 PO SCH (13:03)
--- NOTE | 2017-12-09 13:03 | Progress Note ---
Assessment and Plan Severe sepsis with shock. Nephrolithiasis with obstructive uropathy. Morbid obesity. Obstructive sleep apnea. Leukocytosis Mild hyponatremia. Mild metabolic acidosis. lactic acidosis. Elevated serum transaminases (Doing much better) - continue and complete AB's per ID recs - continue BIPAP qhs / while asleep - s/p Cysto DVIU with insertion of right ureteral stent - continue GI & VTE prophylaxis - PT/OT as tolerated - gentle hydration - Azotemia improving - definitive stone removal once sepsis resolves - OK to transfer to medical floor ....35' Subjective Date of service: 12/09/17 Principal diagnosis: Severe Sepsis with Shock; Hydronephrosis with Obstructive Uropathy; SAUL Interval history: Patient seen today for: Severe Sepsis with Shock; Hydronephrosis with Obstructive Uropathy; SAUL Seen and examined at bedside; 24-hour events reviewed; nursing and respiratory care staff consulted; no adverse overnight events reported to me; looks and feels better; Objective Vital Signs - 12hr 12/09/17 12/09/17 12/09/17 04:31 07:51 08:40 Temperature 97.5 F L 97.6 F 97.6 F Pulse Rate 100 H 100 H 99 H Respiratory 20 20 20 Rate Blood Pressure 106/74 124/75 Blood Pressure 124/75 [Right] O2 Sat by Pulse 95 94 94 Oximetry 12/09/17 12/09/17 12/09/17 09:04 12:09 12:57 Temperature 98.6 F 98.6 F Pulse Rate 87 91 H 60 Respiratory 20 20 Rate Blood Pressure 120/73 Blood Pressure 155/78 [Right] O2 Sat by Pulse 94 95 Oximetry Constitutional: no acute distress, other (obese) Eyes: non-icteric ENT: oropharynx moist, other (large neck circumference) Neck: supple, no lymphadenopathy, no JVD, other (no thyromegally; mallampatti 4) Effort: normal Ascultation: Bilateral: clear, diminished breath sounds, rhonchi (inspiratory in bases L>R) Percussion: Bilateral: not dull Cardiovascular: irregular rhythm, other (S1,S2, no murmurs, gallops or rubs) Gastrointestinal: normoactive bowel sounds, soft, non-tender, non-distended, other (No hepatoslenomegaly) Integumentary: rash (stasis dermatitis to legs) Extremities: no cyanosis, no edema, pulses normal, other (Chronic venous stasis dermatitis) Neurologic: normal mental status, non-focal exam, pupils equal and round, CN II- XII normal, motor strength normal and Psychiatric: mood appropriate, affect normal CBC and BMP: 12/09/17 04:50 12/09/17 04:50 ABG, PT/INR, D-dimer: ABG POC ABG pH 7.417 (7.35-7.45) 12/09/17 10:30 POC ABG pCO2 39.9 (35-45) 12/09/17 10:30 POC ABG pO2 66 (80-105) L 12/09/17 10:30 POC ABG HCO3 25.7 12/09/17 10:30 POC ABG Total CO2 27 12/09/17 10:30 POC ABG O2 Sat 93 12/09/17 10:30 PT/INR, D-dimer PT 19.9 Sec. (12.2-14.9) H 12/04/17 16:29 INR 1.59 (0.87-1.13) H 12/04/17 16:29 Abnormal lab findings: Abnormal Labs 12/04/17 12/04/17 12/04/17 11:27 11:27 11:27 WBC 12.1 H RBC 5.37 H Hgb 16.3 H Hct 48.7 H RDW 15.7 H Plt Count 136 L Lymph % (Auto) 6.5 L [place] % (Auto) 14.7 H Lymph # 0.8 L [place] # 1.8 H Seg Neutrophils % 78.3 H Lymphocytes % (Manual) Monocytes % (Manual) Eosinophils % (Manual) Seg Neutrophils # 9.5 H Seg Neutrophils # Man Lymphocytes # (Manual) Monocytes # (Manual) Eosinophils # (Manual) PT 20.5 H INR 1.65 H APTT 40.2 H POC ABG pO2 VBG pH Sodium 133 L Potassium Chloride 93.9 L Carbon Dioxide 20 L BUN 79 H Creatinine 3.8 H Glucose 153 H POC Glucose Lactic Acid Calcium AST 75 H ALT 58 H Alkaline Phosphatase 142 H C-Reactive Protein Albumin 2.8 L Urine WBC (Auto) 12/04/17 12/04/17 12/04/17 11:27 11:27 11:27 WBC RBC Hgb Hct RDW Plt Count Lymph % (Auto) [place] % (Auto) Lymph # [place] # Seg Neutrophils % Lymphocytes % (Manual) Monocytes % (Manual) Eosinophils % (Manual) Seg Neutrophils # Seg Neutrophils # Man Lymphocytes # (Manual) Monocytes # (Manual) Eosinophils # (Manual) PT INR APTT POC ABG pO2 VBG pH 7.316 L Sodium Potassium Chloride Carbon Dioxide BUN Creatinine Glucose POC Glucose Lactic Acid 2.30 H* Calcium AST ALT Alkaline Phosphatase C-Reactive Protein 12.40 H Albumin Urine WBC (Auto) 12/04/17 12/04/17 12/04/17 13:49 16:29 16:29 WBC 11.7 H RBC Hgb Hct RDW 15.9 H Plt Count 121 L Lymph % (Auto) [place] % (Auto) Lymph # [place] # Seg Neutrophils % Lymphocytes % (Manual) 5.0 L Monocytes % (Manual) 19.0 H Eosinophils % (Manual) Seg Neutrophils # Seg Neutrophils # Man 8.2 H Lymphocytes # (Manual) 0.6 L Monocytes # (Manual) 2.2 H Eosinophils # (Manual) PT INR APTT POC ABG pO2 VBG pH Sodium Potassium Chloride Carbon Dioxide BUN Creatinine Glucose POC Glucose Lactic Acid 2.20 H* Calcium AST ALT Alkaline Phosphatase C-Reactive Protein Albumin Urine WBC (Auto) 37.0 H 12/04/17 12/04/17 12/04/17 16:29 17:22 20:49 WBC RBC Hgb Hct RDW Plt Count Lymph % (Auto) [place] % (Auto) Lymph # [place] # Seg Neutrophils % Lymphocytes % (Manual) Monocytes % (Manual) Eosinophils % (Manual) Seg Neutrophils # Seg Neutrophils # Man Lymphocytes # (Manual) Monocytes # (Manual) Eosinophils # (Manual) PT 19.9 H INR 1.59 H APTT 43.9 H POC ABG pO2 VBG pH Sodium Potassium Chloride Carbon Dioxide 18 L BUN 70 H Creatinine 3.3 H Glucose POC Glucose Lactic Acid 2.10 H* Calcium 8.1 L AST ALT Alkaline Phosphatase C-Reactive Protein Albumin Urine WBC (Auto) 12/04/17 12/05/17 12/05/17 20:49 11:40 17:25 WBC RBC Hgb Hct RDW Plt Count Lymph % (Auto) [place] % (Auto) Lymph # [place] # Seg Neutrophils % Lymphocytes % (Manual) Monocytes % (Manual) Eosinophils % (Manual) Seg Neutrophils # Seg Neutrophils # Man Lymphocytes # (Manual) Monocytes # (Manual) Eosinophils # (Manual) PT INR APTT POC ABG pO2 VBG pH Sodium 135 L Potassium Chloride Carbon Dioxide 15 L BUN 70 H Creatinine 3.1 H Glucose 108 H POC Glucose 169 H 313 H Lactic Acid Calcium AST ALT Alkaline Phosphatase C-Reactive Protein Albumin Urine WBC (Auto) 12/05/17 12/06/17 12/06/17 17:41 00:11 03:58 WBC RBC 5.10 H Hgb Hct 46.9 H RDW 15.9 H Plt Count 135 L Lymph % (Auto) [place] % (Auto) Lymph # [place] # Seg Neutrophils % Lymphocytes % (Manual) 9.0 L Monocytes % (Manual) 14.0 H Eosinophils % (Manual) Seg Neutrophils # Seg Neutrophils # Man Lymphocytes # (Manual) 0.9 L Monocytes # (Manual) 1.3 H Eosinophils # (Manual) PT INR APTT POC ABG pO2 VBG pH Sodium Potassium Chloride Carbon Dioxide 20 L BUN 61 H Creatinine 2.5 H Glucose 315 H POC Glucose 277 H Lactic Acid Calcium AST ALT Alkaline Phosphatase C-Reactive Protein Albumin Urine WBC (Auto) 12/06/17 12/06/17 12/06/17 03:58 05:02 11:35 WBC RBC Hgb Hct RDW Plt Count Lymph % (Auto) [place] % (Auto) Lymph # [place] # Seg Neutrophils % Lymphocytes % (Manual) Monocytes % (Manual) Eosinophils % (Manual) Seg Neutrophils # Seg Neutrophils # Man Lymphocytes # (Manual) Monocytes # (Manual) Eosinophils # (Manual) PT INR APTT POC ABG pO2 VBG pH Sodium Potassium Chloride Carbon Dioxide 20 L BUN 54 H Creatinine 1.9 H Glucose 243 H POC Glucose 243 H 288 H Lactic Acid Calcium AST ALT Alkaline Phosphatase C-Reactive Protein Albumin Urine WBC (Auto) 12/06/17 12/07/17 12/07/17 17:18 04:54 04:54 WBC RBC 5.46 H Hgb 16.4 H Hct 49.6 H RDW 16.1 H Plt Count Lymph % (Auto) [place] % (Auto) Lymph # [place] # Seg Neutrophils % Lymphocytes % (Manual) 13.0 L Monocytes % (Manual) 14.0 H Eosinophils % (Manual) 5.0 H Seg Neutrophils # Seg Neutrophils # Man Lymphocytes # (Manual) Monocytes # (Manual) 1.3 H Eosinophils # (Manual) 0.5 H PT INR APTT POC ABG pO2 VBG pH Sodium 146 H Potassium Chloride 107.5 H Carbon Dioxide BUN 46 H Creatinine 1.6 H Glucose 240 H POC Glucose 275 H Lactic Acid Calcium AST ALT Alkaline Phosphatase C-Reactive Protein Albumin Urine WBC (Auto) 12/07/17 12/07/17 12/07/17 05:32 11:22 15:48 WBC RBC Hgb Hct RDW Plt Count Lymph % (Auto) [place] % (Auto) Lymph # [place] # Seg Neutrophils % Lymphocytes % (Manual) Monocytes % (Manual) Eosinophils % (Manual) Seg Neutrophils # Seg Neutrophils # Man Lymphocytes # (Manual) Monocytes # (Manual) Eosinophils # (Manual) PT INR APTT POC ABG pO2 VBG pH Sodium Potassium Chloride Carbon Dioxide BUN Creatinine Glucose POC Glucose 223 H 310 H 326 H Lactic Acid Calcium AST ALT Alkaline Phosphatase C-Reactive Protein Albumin Urine WBC (Auto) 12/07/17 12/08/17 12/08/17 23:57 04:31 06:45 WBC RBC 5.21 H Hgb 15.9 H Hct 47.5 H RDW 16.4 H Plt Count Lymph % (Auto) [place] % (Auto) 11.7 H Lymph # [place] # 1.2 H Seg Neutrophils % 71.2 H Lymphocytes % (Manual) Monocytes % (Manual) Eosinophils % (Manual) Seg Neutrophils # Seg Neutrophils # Man Lymphocytes # (Manual) Monocytes # (Manual) Eosinophils # (Manual) PT INR APTT POC ABG pO2 VBG pH Sodium Potassium Chloride Carbon Dioxide BUN Creatinine Glucose POC Glucose 143 H 193 H Lactic Acid Calcium AST ALT Alkaline Phosphatase C-Reactive Protein Albumin Urine WBC (Auto) 12/08/17 12/08/17 12/08/17 06:45 12:12 17:14 WBC RBC Hgb Hct RDW Plt Count Lymph % (Auto) [place] % (Auto) Lymph # [place] # Seg Neutrophils % Lymphocytes % (Manual) Monocytes % (Manual) Eosinophils % (Manual) Seg Neutrophils # Seg Neutrophils # Man Lymphocytes # (Manual) Monocytes # (Manual) Eosinophils # (Manual) PT INR APTT POC ABG pO2 VBG pH Sodium Potassium Chloride Carbon Dioxide BUN 43 H Creatinine Glucose 233 H POC Glucose 332 H 263 H Lactic Acid Calcium AST ALT Alkaline Phosphatase C-Reactive Protein Albumin Urine WBC (Auto) 12/08/17 12/09/17 12/09/17 21:45 00:01 04:50 WBC RBC Hgb 15.3 H Hct RDW 16.0 H Plt Count Lymph % (Auto) [place] % (Auto) 11.5 H Lymph # [place] # 1.0 H Seg Neutrophils % Lymphocytes % (Manual) Monocytes % (Manual) Eosinophils % (Manual) Seg Neutrophils # Seg Neutrophils # Man Lymphocytes # (Manual) Monocytes # (Manual) Eosinophils # (Manual) PT INR APTT POC ABG pO2 VBG pH Sodium Potassium Chloride Carbon Dioxide BUN Creatinine Glucose POC Glucose 232 H 190 H Lactic Acid Calcium AST ALT Alkaline Phosphatase C-Reactive Protein Albumin Urine WBC (Auto) 12/09/17 12/09/17 12/09/17 04:50 06:41 10:30 WBC RBC Hgb Hct RDW Plt Count Lymph % (Auto) [place] % (Auto) Lymph # [place] # Seg Neutrophils % Lymphocytes % (Manual) Monocytes % (Manual) Eosinophils % (Manual) Seg Neutrophils # Seg Neutrophils # Man Lymphocytes # (Manual) Monocytes # (Manual) Eosinophils # (Manual) PT INR APTT POC ABG pO2 66 L VBG pH Sodium Potassium 3.4 L Chloride Carbon Dioxide BUN 41 H Creatinine Glucose 246 H POC Glucose 204 H Lactic Acid Calcium AST ALT Alkaline Phosphatase C-Reactive Protein Albumin Urine WBC (Auto) 12/09/17 10:36 WBC RBC Hgb Hct RDW Plt Count Lymph % (Auto) [place] % (Auto) Lymph # [place] # Seg Neutrophils % Lymphocytes % (Manual) Monocytes % (Manual) Eosinophils % (Manual) Seg Neutrophils # Seg Neutrophils # Man Lymphocytes # (Manual) Monocytes # (Manual) Eosinophils # (Manual) PT INR APTT POC ABG pO2 VBG pH Sodium Potassium Chloride Carbon Dioxide BUN Creatinine Glucose POC Glucose 318 H Lactic Acid Calcium AST ALT Alkaline Phosphatase C-Reactive Protein Albumin Urine WBC (Auto) Allied health notes reviewed: nursing
[2017-12-09] MEDS: FISH OIL PO SCH (13:04)
[2017-12-09] MEDS: K-DUR PO SCH (13:04)
[2017-12-09] MEDS: COLACE PO SCH ×2 (13:05→21:59)
[2017-12-09] MEDS: OYSCO D 500 MG-200 UNIT PO SCH (13:05)
[2017-12-09] MEDS: ZYLOPRIM PO SCH (13:06)
[2017-12-09] MEDS: VITAMIN C PO SCH ×2 (13:07→21:59)
[2017-12-09] MEDS: THERAGRAN-M Tab PO SCH (13:07)
[2017-12-09] MEDS: SODIUM CHLORIDE FLUSH SYRINGE 10 ML IV SCH ×2 (13:08→22:07)
--- NOTE | 2017-12-09 14:21 | Progress Note ---
Assessment and Plan - Patient Problems (1) Atrial fibrillation Current Visit: Yes Status: Acute Qualifiers: Atrial fibrillation type: chronic Qualified Code(s): I48.2 - Chronic atrial fibrillation Plan to address problem: Continue medical therapy for rate control and oral anticoagulation depending on surgical status. Subjective Date of service: 12/09/17 Principal diagnosis: Severe Sepsis with Shock; Hydronephrosis with Obstructive Uropathy; SAUL Interval history: Patient is comfortable, no new cardiac complaints. Objective Vital Signs Temp Pulse Resp BP BP Pulse Ox 12/09/17 13:04 98.6 F 95 H 20 120/73 95 12/09/17 13:03 109 H 12/09/17 12:57 98.6 F 60 20 155/78 95 12/09/17 12:09 98.6 F 91 H 20 120/73 94 12/09/17 10:00 98 12/09/17 09:04 87 12/09/17 08:40 97.6 F 99 H 20 124/75 94 12/09/17 07:51 97.6 F 100 H 20 124/75 94 12/09/17 04:31 97.5 F L 100 H 20 106/74 95 12/08/17 23:52 98.1 F 90 20 123/78 96 12/08/17 22:00 90 95 12/08/17 20:18 98.2 F 99 H 20 108/70 94 12/08/17 17:05 113 H 139/78 96 12/08/17 16:44 95 12/08/17 15:04 107 H - Physical Examination General: No Apparent Distress HEENT: Positive: PERRL Neck: Positive: neck supple Cardiac: Positive: Irregularly Regular Lungs: Positive: Decreased Breath Sounds Neuro: Positive: Grossly Intact Abdomen: Positive: Soft Skin: Positive: Clear Extremities: Absent: edema - Labs and Meds CBC 12/09/17 Range/Units 04:50 WBC 9.1 (4.5-11.0) K/mm3 RBC 4.99 (3.65-5.03) M/mm3 Hgb 15.3 H (11.8-15.2) gm/dl Hct 44.9 (35.5-45.6) % Plt Count 176 (140-440) K/mm3 Lymph # 1.5 (1.2-5.4) K/mm3 Gem # 1.0 H (0.0-0.8) K/mm3 Eos # 0.3 (0.0-0.4) K/mm3 Baso # 0.0 (0.0-0.1) K/mm3 Comprehensive Metabolic Panel 12/09/17 Range/Units 04:50 Sodium 139 (137-145) mmol/L Potassium 3.4 L (3.6-5.0) mmol/L Chloride 100.9 (98-107) mmol/L Carbon Dioxide 22 (22-30) mmol/L BUN 41 H (9-20) mg/dL Creatinine 1.4 (0.8-1.5) mg/dL Glucose 246 H (75-100) mg/dL Calcium 8.5 (8.4-10.2) mg/dL - Allied health notes Allied health notes reviewed: nursing
[2017-12-09] MEDS: PRAVACHOL PO SCH (21:59)
[2017-12-09] MEDS: ZETIA PO SCH (22:00)
[2017-12-10] MEDS: HumuLIN R SUB-Q SCH ×2 (01:00→06:39)
[2017-12-10] MEDS: CARDIZEM CD PO SCH (04:17)
[2017-12-10] MEDS: LASIX PO SCH (06:39)
[2017-12-10] MEDS: HEPARIN SUB-Q SCH (06:39)
[2017-12-10 08:42] LABS: Calcium 9.1 mg/dL (8.4-10.2)
--- NOTE | 2017-12-10 09:00 | Discharge Summary ---
Providers - Providers Date of Admission: 12/04/17 13:57 Attending physician: ALEJA MCELROY 12/04/17 13:43 Consult to Physician [CONS] Urgent Comment: Consulting Provider: RUTHANN ROBLES Physician Instructions: Reason For Exam: right obstructing ureteral stone, urosepsis Consult to Physician [CONS] Urgent Comment: Consulting Provider: MISA ALMODOVAR Physician Instructions: Reason For Exam: right obstructing ureteral stone, urosepsis 12/04/17 13:56 Consult to Physician [CONS] Stat Comment: Consulting Provider: JAYDE JAY Physician Instructions: Reason For Exam: right obstructing ureteral stone, urosepsis 12/05/17 10:24 Consult to Physician [CONS] Routine Comment: Consulting Provider: JANIE BROCK Physician Instructions: Reason For Exam: afib with rvr 12/05/17 10:26 Consult to Physician [CONS] Routine Comment: Consulting Provider: ZENY PICHARDO Physician Instructions: Reason For Exam: arf 12/09/17 10:29 Consult to Wound/ET Nurse [CONS] Urgent Reason For Exam: wound eval Primary care physician: MISA ALMODOVAR Hospitalization Condition: Stable Disposition: DC-30 STILL A PATIENT Exam - Constitutional Vitals: Temp Pulse Resp BP Pulse Ox 98.2 F 98 H 20 123/77 94 12/10/17 03:52 12/10/17 04:17 12/10/17 03:52 12/10/17 04:17 12/10/17 03:52 Plan Activity: fall precautions Weight Bearing Status: Weight Bear as Tolerated Diet: low fat, low cholesterol, low salt, diabetic Follow up with: MISA ALMODOVAR MD [Primary Care Provider] - 3-5 Days Prescriptions: Diltiazem Cd [Cardizem CD] 180 mg PO Q12H #60 capsule
--- NOTE | 2017-12-10 09:50 | Progress Note ---
Assessment and Plan urine clear de leon out today improved f/u ureteroscopy Subjective Date of service: 12/10/17 Principal diagnosis: Severe Sepsis with Shock; Hydronephrosis with Obstructive Uropathy; SUAL Objective - Constitutional Vitals: Vital Signs - 12hr 12/09/17 12/10/17 12/10/17 23:44 00:24 00:25 Temperature 97.2 F L Pulse Rate 98 H 103 H Respiratory 20 Rate Blood Pressure 123/77 Blood Pressure [Right] O2 Sat by Pulse 96 93 93 Oximetry 12/10/17 12/10/17 12/10/17 03:52 04:17 08:09 Temperature 98.2 F 98.6 F Pulse Rate 91 H 98 H 93 H Respiratory 20 50 H Rate Blood Pressure 123/77 115/62 Blood Pressure 108/66 [Right] O2 Sat by Pulse 94 96 Oximetry General appearance: Present: no acute distress - Respiratory Respiratory effort: normal Extremity abnormal: edema - Labs CBC & Chem 7: 12/09/17 04:50 12/10/17 07:56 Labs: Abnormal lab results 12/09/17 12/09/17 12/09/17 Range/Units 10:30 10:36 16:25 POC ABG pO2 66 L (80-105) BUN (9-20) mg/dL Glucose (75-100) mg/dL POC Glucose 318 H 366 H (70-105) 12/09/17 12/10/17 12/10/17 Range/Units 22:36 05:58 07:56 POC ABG pO2 (80-105) BUN 37 H (9-20) mg/dL Glucose 210 H (75-100) mg/dL POC Glucose 225 H 199 H (70-105)
--- NOTE | 2017-12-10 10:18 | Progress Note ---
Assessment and Plan Impression: * Acute kidney injury secondary to multifactorial etiologies: sepsis related ATN vs obstructive uropathy * Right ureteral stone w/ obstruction, right hydronephrosis; s/p cystoscopy, urethrotomy and stent. * Sepsis * Atrial fibrillation w/ RVR * Chronic anticoagulation * Metabolic acidosis Plan: * Renal function improving. Continue current management * Abx per primary team * Rate control per cardiology * Urology following * Avoid nephrotoxins * Dose medications for renal function * ok to dc from renal standpoint Subjective Date of service: 12/10/17 Principal diagnosis: Severe Sepsis with Shock; Hydronephrosis with Obstructive Uropathy; SAUL Interval history: resting well in bed today Objective - Exam Narrative Exam: General appearance: well-developed, well-nourished, appears stated age EENT: PERRL, mucous membranes moist Neck: no JVD, no thyromegaly, no carotid bruit, supple Respiratory: Present: Clear to Ascultation Cardiology: regular, normal heart rate, S1S2, no murmurs Gastrointestinal: normal, normoactive bowel sounds Integumentary: other (1+ edema . Left leg wrapped with bandage ) - Vital Signs Vital signs: Vital Signs - 12hr 12/09/17 12/10/17 12/10/17 23:44 00:24 00:25 Temperature 97.2 F L Pulse Rate 98 H 103 H Respiratory 20 Rate Blood Pressure 123/77 Blood Pressure [Right] O2 Sat by Pulse 96 93 93 Oximetry 12/10/17 12/10/17 12/10/17 03:52 04:17 08:09 Temperature 98.2 F 98.6 F Pulse Rate 91 H 98 H 93 H Respiratory 20 50 H Rate Blood Pressure 123/77 115/62 Blood Pressure 108/66 [Right] O2 Sat by Pulse 94 96 Oximetry - Lab 12/09/17 04:50 12/10/17 07:56 Most recent lab results Calcium 9.1 mg/dL (8.4-10.2) 12/10/17 07:56
--- NOTE | 2017-12-10 10:43 | Progress Note ---
Assessment and Plan Sepsis Acute kidney injury Right ureteral stone with obstruction s/p cystoscopy, urethrotomy and stent. Right hydronephrosis, moderate Atrial fibrillation, chronic rate control with Cardizem CD on eliquis for oral anticoagulation as an outpatient Diabetes mellitus Recommendations: Continue rate controlling agents for chronic atrial fibrillation. Resume eliquis when surgically feasible. Subjective Date of service: 12/10/17 Principal diagnosis: Severe Sepsis with Shock; Hydronephrosis with Obstructive Uropathy; SAUL Interval history: No interval changes. Objective Vital Signs Temp Pulse Resp BP BP Pulse Ox 12/10/17 08:09 98.6 F 93 H 50 H 115/62 96 12/10/17 04:17 98 H 123/77 12/10/17 03:52 98.2 F 91 H 20 108/66 94 12/10/17 00:25 103 H 93 12/10/17 00:24 97.2 F L 98 H 20 123/77 93 12/09/17 23:44 96 12/09/17 20:16 97.8 F 98 H 20 124/74 97 12/09/17 19:48 92 H 12/09/17 19:40 105 H 96 12/09/17 16:21 97.8 F 106 H 20 123/71 95 12/09/17 13:04 98.6 F 95 H 20 120/73 95 12/09/17 13:03 109 H 12/09/17 12:57 98.6 F 60 20 155/78 95 12/09/17 12:09 98.6 F 91 H 20 120/73 94 - Physical Examination General: No Apparent Distress HEENT: Positive: PERRL Cardiac: Positive: irregularly irregular Neuro: Positive: Grossly Intact - Labs and Meds Comprehensive Metabolic Panel 12/10/17 Range/Units 07:56 Sodium 138 (137-145) mmol/L Potassium 3.7 (3.6-5.0) mmol/L Chloride 99.4 (98-107) mmol/L Carbon Dioxide 28 (22-30) mmol/L BUN 37 H (9-20) mg/dL Creatinine 1.3 (0.8-1.5) mg/dL Glucose 210 H (75-100) mg/dL Calcium 9.1 (8.4-10.2) mg/dL - Allied health notes Allied health notes reviewed: nursing
[2017-12-10] MEDS: COLACE PO SCH (11:32)
[2017-12-10] MEDS: FISH OIL PO SCH (11:32)
[2017-12-10] MEDS: K-DUR PO SCH (11:33)
[2017-12-10] MEDS: LANTUS SUB-Q SCH (11:33)
[2017-12-10] MEDS: OYSCO D 500 MG-200 UNIT PO SCH (11:36)
[2017-12-10] MEDS: THERAGRAN-M Tab PO SCH (11:37)
[2017-12-10] MEDS: SODIUM CHLORIDE FLUSH SYRINGE 10 ML IV SCH (11:37)
[2017-12-10] MEDS: VITAMIN C PO SCH (11:43)
[2017-12-10] MEDS: VITAMIN B-12 PO SCH (11:43)
[2017-12-10] MEDS: ZESTRIL PO SCH (11:48)
[2017-12-10 11:51] VITALS: BP 123/87
[2017-12-10] MEDS: ZYLOPRIM PO SCH (11:54)
--- NOTE | 2017-12-10 14:43 | Progress Note ---
Assessment and Plan Severe sepsis with shock. Nephrolithiasis with obstructive uropathy. Morbid obesity. Obstructive sleep apnea. Leukocytosis Mild hyponatremia. Mild metabolic acidosis. lactic acidosis. Elevated serum transaminases - complete AB's per ID recs - continue BIPAP qhs / while asleep - s/p Cysto DVIU with insertion of right ureteral stent - continue GI & VTE prophylaxis - PT/OT as tolerated - gentle hydration - Azotemia improving - definitive stone removal - Discharge planning Subjective Date of service: 12/03/17 Principal diagnosis: Severe Sepsis with Shock; Hydronephrosis with Obstructive Uropathy; SAUL Interval history: F/UP for severe sepsis with septic shock: nephrolithiasis with obstructive uropathy: Morbid obesity with PAULINO Seen and examined. Vitals, labs, medications, chart reviewed. Off neosynephrine infusion Currently has Afib with RVR Patient has a history of chronic atrial fibrillation and is on eliquis for oral anticoagulation. In 2104, he underwent a cardiac cath that reports no significant CAD, normal left ventricular ejection fraction. He states his night was decent, he tolerated his CPAP machine. Discharge planning for today Objective - Exam Narrative Exam: General appearance: well-developed, well-nourished, appears stated age EENT: PERRL, mucous membranes moist Neck: no JVD, no thyromegaly, no carotid bruit, supple Respiratory: Present: Clear to Ascultation Cardiology: regular, normal heart rate, S1S2, no murmurs Gastrointestinal: normal, normoactive bowel sounds Integumentary: other (1+ edema . Left leg wrapped with bandage ) Vital Signs - 12hr 12/10/17 12/10/17 12/10/17 03:52 04:17 08:09 Temperature 98.2 F 98.6 F Pulse Rate 91 H 98 H 93 H Respiratory 20 50 H Rate Blood Pressure 123/77 115/62 Blood Pressure 108/66 [Right] O2 Sat by Pulse 94 96 Oximetry 12/10/17 12/10/17 11:12 11:48 Temperature 98.0 F Pulse Rate 91 H Respiratory 20 Rate Blood Pressure 116/68 123/87 Blood Pressure [Right] O2 Sat by Pulse 96 Oximetry Constitutional: no acute distress, other (obese) Eyes: non-icteric ENT: oropharynx moist, other (large neck circumference) Neck: supple, no lymphadenopathy, no JVD, other (no thyromegally; mallampatti 4) Effort: normal Ascultation: Bilateral: clear, diminished breath sounds, rhonchi (inspiratory in bases L>R) Percussion: Bilateral: not dull Cardiovascular: irregular rhythm, other (S1,S2, no murmurs, gallops or rubs) Gastrointestinal: normoactive bowel sounds, soft, non-tender, non-distended, other (No hepatoslenomegaly) Integumentary: rash (stasis dermatitis to legs) Extremities: no cyanosis, no edema, pulses normal, other (Chronic venous stasis dermatitis) Neurologic: normal mental status, non-focal exam, pupils equal and round, CN II- XII normal, motor strength normal and Psychiatric: mood appropriate, affect normal CBC and BMP: 12/09/17 04:50 12/10/17 07:56 ABG, PT/INR, D-dimer: ABG POC ABG pH 7.417 (7.35-7.45) 12/09/17 10:30 POC ABG pCO2 39.9 (35-45) 12/09/17 10:30 POC ABG pO2 66 (80-105) L 12/09/17 10:30 POC ABG HCO3 25.7 12/09/17 10:30 POC ABG Total CO2 27 12/09/17 10:30 POC ABG O2 Sat 93 12/09/17 10:30 PT/INR, D-dimer PT 19.9 Sec. (12.2-14.9) H 12/04/17 16:29 INR 1.59 (0.87-1.13) H 12/04/17 16:29 Abnormal lab findings: Abnormal Labs 12/04/17 12/04/17 12/04/17 11:27 11:27 11:27 WBC 12.1 H RBC 5.37 H Hgb 16.3 H Hct 48.7 H RDW 15.7 H Plt Count 136 L Lymph % (Auto) 6.5 L Howell % (Auto) 14.7 H Lymph # 0.8 L Howell # 1.8 H Seg Neutrophils % 78.3 H Lymphocytes % (Manual) Monocytes % (Manual) Eosinophils % (Manual) Seg Neutrophils # 9.5 H Seg Neutrophils # Man Lymphocytes # (Manual) Monocytes # (Manual) Eosinophils # (Manual) PT 20.5 H INR 1.65 H APTT 40.2 H POC ABG pO2 VBG pH Sodium 133 L Potassium Chloride 93.9 L Carbon Dioxide 20 L BUN 79 H Creatinine 3.8 H Glucose 153 H POC Glucose Lactic Acid Calcium AST 75 H ALT 58 H Alkaline Phosphatase 142 H C-Reactive Protein Albumin 2.8 L Urine WBC (Auto) 12/04/17 12/04/17 12/04/17 11:27 11:27 11:27 WBC RBC Hgb Hct RDW Plt Count Lymph % (Auto) Howell % (Auto) Lymph # Howell # Seg Neutrophils % Lymphocytes % (Manual) Monocytes % (Manual) Eosinophils % (Manual) Seg Neutrophils # Seg Neutrophils # Man Lymphocytes # (Manual) Monocytes # (Manual) Eosinophils # (Manual) PT INR APTT POC ABG pO2 VBG pH 7.316 L Sodium Potassium Chloride Carbon Dioxide BUN Creatinine Glucose POC Glucose Lactic Acid 2.30 H* Calcium AST ALT Alkaline Phosphatase C-Reactive Protein 12.40 H Albumin Urine WBC (Auto) 12/04/17 12/04/17 12/04/17 13:49 16:29 16:29 WBC 11.7 H RBC Hgb Hct RDW 15.9 H Plt Count 121 L Lymph % (Auto) Howell % (Auto) Lymph # Howell # Seg Neutrophils % Lymphocytes % (Manual) 5.0 L Monocytes % (Manual) 19.0 H Eosinophils % (Manual) Seg Neutrophils # Seg Neutrophils # Man 8.2 H Lymphocytes # (Manual) 0.6 L Monocytes # (Manual) 2.2 H Eosinophils # (Manual) PT INR APTT POC ABG pO2 VBG pH Sodium Potassium Chloride Carbon Dioxide BUN Creatinine Glucose POC Glucose Lactic Acid 2.20 H* Calcium AST ALT Alkaline Phosphatase C-Reactive Protein Albumin Urine WBC (Auto) 37.0 H 12/04/17 12/04/17 12/04/17 16:29 17:22 20:49 WBC RBC Hgb Hct RDW Plt Count Lymph % (Auto) Howell % (Auto) Lymph # Howell # Seg Neutrophils % Lymphocytes % (Manual) Monocytes % (Manual) Eosinophils % (Manual) Seg Neutrophils # Seg Neutrophils # Man Lymphocytes # (Manual) Monocytes # (Manual) Eosinophils # (Manual) PT 19.9 H INR 1.59 H APTT 43.9 H POC ABG pO2 VBG pH Sodium Potassium Chloride Carbon Dioxide 18 L BUN 70 H Creatinine 3.3 H Glucose POC Glucose Lactic Acid 2.10 H* Calcium 8.1 L AST ALT Alkaline Phosphatase C-Reactive Protein Albumin Urine WBC (Auto) 12/04/17 12/05/17 12/05/17 20:49 11:40 17:25 WBC RBC Hgb Hct RDW Plt Count Lymph % (Auto) Howell % (Auto) Lymph # Howell # Seg Neutrophils % Lymphocytes % (Manual) Monocytes % (Manual) Eosinophils % (Manual) Seg Neutrophils # Seg Neutrophils # Man Lymphocytes # (Manual) Monocytes # (Manual) Eosinophils # (Manual) PT INR APTT POC ABG pO2 VBG pH Sodium 135 L Potassium Chloride Carbon Dioxide 15 L BUN 70 H Creatinine 3.1 H Glucose 108 H POC Glucose 169 H 313 H Lactic Acid Calcium AST ALT Alkaline Phosphatase C-Reactive Protein Albumin Urine WBC (Auto) 12/05/17 12/06/17 12/06/17 17:41 00:11 03:58 WBC RBC 5.10 H Hgb Hct 46.9 H RDW 15.9 H Plt Count 135 L Lymph % (Auto) Howell % (Auto) Lymph # Howell # Seg Neutrophils % Lymphocytes % (Manual) 9.0 L Monocytes % (Manual) 14.0 H Eosinophils % (Manual) Seg Neutrophils # Seg Neutrophils # Man Lymphocytes # (Manual) 0.9 L Monocytes # (Manual) 1.3 H Eosinophils # (Manual) PT INR APTT POC ABG pO2 VBG pH Sodium Potassium Chloride Carbon Dioxide 20 L BUN 61 H Creatinine 2.5 H Glucose 315 H POC Glucose 277 H Lactic Acid Calcium AST ALT Alkaline Phosphatase C-Reactive Protein Albumin Urine WBC (Auto) 12/06/17 12/06/17 12/06/17 03:58 05:02 11:35 WBC RBC Hgb Hct RDW Plt Count Lymph % (Auto) Howell % (Auto) Lymph # Howell # Seg Neutrophils % Lymphocytes % (Manual) Monocytes % (Manual) Eosinophils % (Manual) Seg Neutrophils # Seg Neutrophils # Man Lymphocytes # (Manual) Monocytes # (Manual) Eosinophils # (Manual) PT INR APTT POC ABG pO2 VBG pH Sodium Potassium Chloride Carbon Dioxide 20 L BUN 54 H Creatinine 1.9 H Glucose 243 H POC Glucose 243 H 288 H Lactic Acid Calcium AST ALT Alkaline Phosphatase C-Reactive Protein Albumin Urine WBC (Auto) 12/06/17 12/07/17 12/07/17 17:18 04:54 04:54 WBC RBC 5.46 H Hgb 16.4 H Hct 49.6 H RDW 16.1 H Plt Count Lymph % (Auto) Howell % (Auto) Lymph # Howell # Seg Neutrophils % Lymphocytes % (Manual) 13.0 L Monocytes % (Manual) 14.0 H Eosinophils % (Manual) 5.0 H Seg Neutrophils # Seg Neutrophils # Man Lymphocytes # (Manual) Monocytes # (Manual) 1.3 H Eosinophils # (Manual) 0.5 H PT INR APTT POC ABG pO2 VBG pH Sodium 146 H Potassium Chloride 107.5 H Carbon Dioxide BUN 46 H Creatinine 1.6 H Glucose 240 H POC Glucose 275 H Lactic Acid Calcium AST ALT Alkaline Phosphatase C-Reactive Protein Albumin Urine WBC (Auto) 12/07/17 12/07/17 12/07/17 05:32 11:22 15:48 WBC RBC Hgb Hct RDW Plt Count Lymph % (Auto) Howell % (Auto) Lymph # Howell # Seg Neutrophils % Lymphocytes % (Manual) Monocytes % (Manual) Eosinophils % (Manual) Seg Neutrophils # Seg Neutrophils # Man Lymphocytes # (Manual) Monocytes # (Manual) Eosinophils # (Manual) PT INR APTT POC ABG pO2 VBG pH Sodium Potassium Chloride Carbon Dioxide BUN Creatinine Glucose POC Glucose 223 H 310 H 326 H Lactic Acid Calcium AST ALT Alkaline Phosphatase C-Reactive Protein Albumin Urine WBC (Auto) 12/07/17 12/08/17 12/08/17 23:57 04:31 06:45 WBC RBC 5.21 H Hgb 15.9 H Hct 47.5 H RDW 16.4 H Plt Count Lymph % (Auto) Howell % (Auto) 11.7 H Lymph # Howell # 1.2 H Seg Neutrophils % 71.2 H Lymphocytes % (Manual) Monocytes % (Manual) Eosinophils % (Manual) Seg Neutrophils # Seg Neutrophils # Man Lymphocytes # (Manual) Monocytes # (Manual) Eosinophils # (Manual) PT INR APTT POC ABG pO2 VBG pH Sodium Potassium Chloride Carbon Dioxide BUN Creatinine Glucose POC Glucose 143 H 193 H Lactic Acid Calcium AST ALT Alkaline Phosphatase C-Reactive Protein Albumin Urine WBC (Auto) 12/08/17 12/08/17 12/08/17 06:45 12:12 17:14 WBC RBC Hgb Hct RDW Plt Count Lymph % (Auto) Howell % (Auto) Lymph # Howell # Seg Neutrophils % Lymphocytes % (Manual) Monocytes % (Manual) Eosinophils % (Manual) Seg Neutrophils # Seg Neutrophils # Man Lymphocytes # (Manual) Monocytes # (Manual) Eosinophils # (Manual) PT INR APTT POC ABG pO2 VBG pH Sodium Potassium Chloride Carbon Dioxide BUN 43 H Creatinine Glucose 233 H POC Glucose 332 H 263 H Lactic Acid Calcium AST ALT Alkaline Phosphatase C-Reactive Protein Albumin Urine WBC (Auto) 12/08/17 12/09/17 12/09/17 21:45 00:01 04:50 WBC RBC Hgb 15.3 H Hct RDW 16.0 H Plt Count Lymph % (Auto) Howell % (Auto) 11.5 H Lymph # Howell # 1.0 H Seg Neutrophils % Lymphocytes % (Manual) Monocytes % (Manual) Eosinophils % (Manual) Seg Neutrophils # Seg Neutrophils # Man Lymphocytes # (Manual) Monocytes # (Manual) Eosinophils # (Manual) PT INR APTT POC ABG pO2 VBG pH Sodium Potassium Chloride Carbon Dioxide BUN Creatinine Glucose POC Glucose 232 H 190 H Lactic Acid Calcium AST ALT Alkaline Phosphatase C-Reactive Protein Albumin Urine WBC (Auto) 12/09/17 12/09/17 12/09/17 04:50 06:41 10:30 WBC RBC Hgb Hct RDW Plt Count Lymph % (Auto) Howell % (Auto) Lymph # Howell # Seg Neutrophils % Lymphocytes % (Manual) Monocytes % (Manual) Eosinophils % (Manual) Seg Neutrophils # Seg Neutrophils # Man Lymphocytes # (Manual) Monocytes # (Manual) Eosinophils # (Manual) PT INR APTT POC ABG pO2 66 L VBG pH Sodium Potassium 3.4 L Chloride Carbon Dioxide BUN 41 H Creatinine Glucose 246 H POC Glucose 204 H Lactic Acid Calcium AST ALT Alkaline Phosphatase C-Reactive Protein Albumin Urine WBC (Auto) 12/09/17 12/09/17 12/09/17 10:36 16:25 22:36 WBC RBC Hgb Hct RDW Plt Count Lymph % (Auto) Howell % (Auto) Lymph # Howell # Seg Neutrophils % Lymphocytes % (Manual) Monocytes % (Manual) Eosinophils % (Manual) Seg Neutrophils # Seg Neutrophils # Man Lymphocytes # (Manual) Monocytes # (Manual) Eosinophils # (Manual) PT INR APTT POC ABG pO2 VBG pH Sodium Potassium Chloride Carbon Dioxide BUN Creatinine Glucose POC Glucose 318 H 366 H 225 H Lactic Acid Calcium AST ALT Alkaline Phosphatase C-Reactive Protein Albumin Urine WBC (Auto) 12/10/17 12/10/17 12/10/17 05:58 07:56 11:17 WBC RBC Hgb Hct RDW Plt Count Lymph % (Auto) Howell % (Auto) Lymph # Howell # Seg Neutrophils % Lymphocytes % (Manual) Monocytes % (Manual) Eosinophils % (Manual) Seg Neutrophils # Seg Neutrophils # Man Lymphocytes # (Manual) Monocytes # (Manual) Eosinophils # (Manual) PT INR APTT POC ABG pO2 VBG pH Sodium Potassium Chloride Carbon Dioxide BUN 37 H Creatinine Glucose 210 H POC Glucose 199 H 288 H Lactic Acid Calcium AST ALT Alkaline Phosphatase C-Reactive Protein Albumin Urine WBC (Auto) Allied health notes reviewed: nursing
== END 2017-12-10 15:00 | disposition home or self-care (01) | DRG 871 ==
LOC: ED 10:42 → CC1 13:57 → 4A 12-06 18:15
PROVIDERS: ADMIT Internal Medicine; ATTEND Hospitalist
PROC: 0T768DZ Dilation of Right Ureter with Intraluminal Device, Via Natural or Artificial Opening Endoscopic (ICD-10-PCS; principal; 2017-12-04)
PROC: 5A09457 Assistance with Respiratory Ventilation, 24-96 Consecutive Hours, Continuous Positive Airway Pressure (ICD-10-PCS; 2017-12-05)
PROC: 4A033R1 Measurement of Arterial Saturation, Peripheral, Percutaneous Approach (ICD-10-PCS; 2017-12-09)
DX: A41.9 Sepsis, unspecified organism (principal); N17.0 Acute kidney failure with tubular necrosis; R65.21 Severe sepsis with septic shock; Z68.43 Body mass index [BMI] 50.0-59.9, adult; N39.0 Urinary tract infection, site not specified; E87.1 Hypo-osmolality and hyponatremia; N13.30 Unspecified hydronephrosis; N20.1 Calculus of ureter; E66.01 Morbid (severe) obesity due to excess calories; N18.9 Chronic kidney disease, unspecified; I48.2 Chronic atrial fibrillation; E11.22 Type 2 diabetes mellitus with diabetic chronic kidney disease; I12.9 Hypertensive chronic kidney disease with stage 1 through stage 4 chronic kidney disease, or unspecified chronic kidney disease; N20.0 Calculus of kidney; G47.33 Obstructive sleep apnea (adult) (pediatric); N13.9 Obstructive and reflux uropathy, unspecified; D69.6 Thrombocytopenia, unspecified; R74.0 Nonspecific elevation of levels of transaminase and lactic acid dehydrogenase [LDH]; N35.9 Urethral stricture, unspecified; R31.9 Hematuria, unspecified; Z79.899 Other long term (current) drug therapy; Z87.442 Personal history of urinary calculi; Z79.01 Long term (current) use of anticoagulants; Z72.0 Tobacco use
CPT/HCPCS: 36415; 36600; 71045; 74018; 74176; 80048; 80053; 81001; 82140; 82803; 82805; 82962; 85007; 85025; 85610; 85730; 86140; 87040; 87086; 93005; 93010; 93306; 94640; 94660; 94760; 96365; 96367; 96375; A4217; A9270-GY; C1726; C1758; C1769; C2617; J0171; J0282; J0696; J1580; J1644; J1815; J2370; J2543; J2704; J2765; J3010; J7030; J7040; Q9967